=== PATIENT | female | born 1975 | race Caucasian/White ===

== ENCOUNTER → 2020-06-16 15:06 | Outpatient (CLI) | payer OTHER, SELFPAY ==
[2020-06-16 18:16] LABS: Vitamin D,25 Hydroxy 23.4 ng/mL
== END ==
PROVIDERS: PCP Family Medicine; Referring Provider Family Medicine; Visit Provider Family Medicine
DX: E55.9 Vitamin D deficiency, unspecified (principal)
CPT/HCPCS: 36415; 82306

== ENCOUNTER → 2020-12-28 09:49 | Outpatient (CLI) | payer OTHER, SELFPAY ==
[2015-06-21 07:14] VITALS: BMI 40.2
[2020-12-28 12:53] LABS: Vitamin D,25 Hydroxy 32.3 ng/mL
== END ==
PROVIDERS: PCP Family Medicine; Referring Provider Family Medicine; Visit Provider Family Medicine
DX: E55.9 Vitamin D deficiency, unspecified (principal)
CPT/HCPCS: 36415; 82306

== ENCOUNTER → 2021-03-03 11:22 | Outpatient (CLI) | payer OTHER, SELFPAY ==
[2015-06-21 07:14] VITALS: BMI 40.2
[2021-03-03 11:27] LABS: Lyme Ab Screen Interpretation REF LAB
[2021-03-05 11:55] LABS: Lyme Scn Total Ab w/Rflx <0.91 ISR (0.00-0.90)
== END ==
PROVIDERS: PCP Family Medicine; Referring Provider Family Medicine; Visit Provider Family Medicine
DX: A69.20 Lyme disease, unspecified (principal)
CPT/HCPCS: 36415; 86618

== ENCOUNTER 2021-12-05 15:08 | Outpatient (CLI) | payer OTHER, SELFPAY ==
[2021-12-05 17:32] LABS: Absolute Lymphocyte Count 1.83 X10^3/uL (0.83-4.51); Absolute Neutrophil Count 4.8 X10^3/uL (2.0-7.7); Basophil# 0.05 X10^3/uL; Basophil% 0.7 % (0-1); Eosinophil# 0.32 X10^3/uL; Eosinophils% 4.2 % (0-5); Hematocrit 40.2 % (37-47); Hemoglobin 13.7 g/dL (12.0-15.0); Lymphocyte # 1.83 X10^3/ul (0.83-4.51); Mean Corp Hgb Conc 34.1 g/dL (32-36); Mean Corpuscular Hgb 30.7 pg (27.0-32.0); Mean Corpuscular Volume 90.1 fL (81-99); Mean Platelet Vol. 10.4 fl (6.2-12.0); Monocyte# 0.59 X10^3/uL; Monocyte% 7.7 % (0-10); NRBC Flagged by Analyzer 0 % (0-5); Neutrophil # 4.82 X10^3/uL (2.7-7.7); Neutrophil % 63.1 % (47-70); Platelet Count 301 K/mm3 (150-450); RBC Distribution Width CV 12.9 % (11.6-14.6); RBC Distribution Width SD 42.8 fl (35.1-43.9); Red Blood Count 4.46 M/mm3 (4.2-5.4); White Blood Count 7.6 K/mm3 (4.4-11.0)
[2021-12-05 17:51] LABS: Erythrocyte Sedimentation Rate 18 mm/hr (0-30)
[2021-12-05 18:00] LABS: Vitamin D,25 Hydroxy 29.1 ng/mL
[2021-12-05 18:04] LABS: Anion Gap 7 (5-15); BUN 9 mg/dL (7-18); Chloride 104 mmol/L (98-107); EST Glomerular Filtration Rate 72 mL/min (>60); Est Glom Filt Rate - Afr Amer 87 mL/min (>60); Glucose 90 mg/dL (74-106); Potassium 3.8 mmol/L (3.5-5.1); Sodium Level 139 mmol/L (136-145); Thyroid Stim Hormone (TSH) 0.94 uIU/mL (0.358-3.74)
== END 2021-12-05 23:59 | disposition home or self-care (01) ==
LOC: MFPLAB 15:10
PROVIDERS: PCP Family Medicine; Visit Provider Family Medicine
DX: R63.5 Abnormal weight gain (principal); E55.9 Vitamin D deficiency, unspecified; R19.7 Diarrhea, unspecified
CPT/HCPCS: 36415; 80048; 82306; 84443; 85025; 85652

== ENCOUNTER → 2024-05-02 | Outpatient (CLI) | payer MEDICAID, SELFPAY ==
[2024-05-02 16:17] LABS: Hepatitis B Surface Antibody Non-Reactive; Rubella IgG Reactive (Nonreactive)
[2024-05-04 10:07] LABS: Mumps Antibody,IgG 25.5 AU/mL (Immune >10.9); Rubeola IgG Ab > 300.0 AU/mL (Immune >16.4); V-Zoster IgG (Immunity) 2271 index (Immune >165)
== END | disposition home or self-care (01) ==
PROVIDERS: PCP Family Medicine; Referring Provider Registered Nurse; Visit Provider Registered Nurse
DX: Z00.00 Encounter for general adult medical examination without abnormal findings (principal)
CPT/HCPCS: 36415; 86706; 86735; 86762; 86765; 86787

== ENCOUNTER 2025-01-13 11:36 | Emergency (ER) | payer MEDICAID, SELFPAY ==
[2025-01-13 11:38] VITALS: BP 142/72; PULSE 110; RESP 18; TEMP 36.7; O2SAT 95; BMI 40.4
--- NOTE | 2025-01-13 11:54 | EKG12_ITS ---
Test Reason : PALPITATION Blood Pressure : */* mmHG Vent. Rate : 96 BPM Atrial Rate : 96 BPM P-R Int : 152 ms QRS Dur : 80 ms QT Int : 358 ms P-R-T Axes : 41 37 41 degrees QTcB Int : 452 ms Normal sinus rhythm Normal ECG Confirmed by Phil Prado ([id number]), editorial intern YELENA HUITRON ([id number]) on 01/19/2025 11:25:05 AM Referred By: Confirmed By: Phil Prado
--- NOTE | 2025-01-13 11:55 | EDS_ITS ---
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 She states she had her arm bent but then when she straightened it out it did get better. She states my anxiety got the best of me so I wanted to make sure I was not having a heart attack. She denies having chest comfort or dyspnea. She states her heart started racing but she feels like that was her anxiety and started after that hand tingling, that is not there anymore. She states the tingling went away and then came back, it is there mildly right now. Her blood pressure was 166 when her instructor checked at causing her concern. PFSH PFSH Medical History no medical history Home Medications ?Medication ?Instructions ?Recorded ?Last Taken ?Type vits,calcium no.78-iron 1 tab PO DAILY 06/20/15 22:00 History fumarate-folic acid 29 mg-1 mg tablet (Prenatabs FA) ibuprofen 600 mg tablet 600 mg PO Q6H PRN PRN Pain # #60 06/23/15 Unknown Rx methylprednisolone 4 mg tablets in See Rx Instructions PO PER PKG DIR 03/11/24 Unknown Rx a dose pack (Medrol (Owen)) #21 tabs fluconazole 150 mg tablet 150 mg PO Q3D 2 doses #2 tab s 04/18/24 Unknown Rx Allergy/AdvReac Type Severity Reaction Status Date / Time No Known Allergies Allergy Verified 01/13/25 11:38 Surgical History no surgical history Social History Smoking Status: Never smoker ROS ROS ED Constitutional Constitutional ED: Denies chills or fever(s) Eyes Eyes: Denies change in vision or diplopia ENT ENT ED: Denies rhinorrhea or sore throat Cardiovascular Cardiovascular: Denies chest pain or palpitations Respiratory/Chest Respiratory/Chest: Denies cough or dyspnea Gastrointestinal Gastrointestinal: Denies abdominal pain, diarrhea, nausea or vomiting Genitourinary Genitourinary ED: Denies dysuria or hematuria Musculoskeletal Musculoskeletal: Denies back pain or neck pain Integumentary Denies abscess or rash Neurologic Neurologic: Reports paresthesias LUE; Denies headache(s) or weakness Psychiatric Psychiatric: Denies suicidal thoughts EXAM Physical Exam Const Vital Signs: 01/13/25 11:38 01/13/25 11:42 01/13/25 11:54 Temperature 98.0 F Temperature Source Oral Pulse Rate 110 H Respiratory Rate 18 Respiratory Effort Normal Blood Pressure 142/72 H Blood Pressure Mean 95 Pulse Ox 95 Oxygen Delivery Method Room Air Room Air Positive well nourished and well developed General Appearance ED: well developed and NAD HEENT Reports moist mucous membranes normocephalic and atraumatic Eyes PERRL and EOMs intact bilaterally Neck full ROM and supple Resp normal respiratory effort and clear to auscultation bilaterally Cardio regular rate, regular rhythm and no murmurs GI non-tender and non-distended Auscultation: normoactive bowel sounds Palpation: soft Back/Spine no CVA tenderness General Back: other FROM Extremity normal to inspection General Extremety ED: Negative for edema, pulses abnormal or tenderness General Extremity: Negative for edema or pulses abnormal Neuro oriented x3, CN's II-XII intact bilaterally and no sensory deficits noted Sensorium / Orientation: awake and alert Motor Exam: strength 5/5 throughout Skin no rashes or lesions noted and no wounds Heart Score History: Slightly/Non-Suspicious ECG: Normal Age: >45 - <65 years Risk Factors: No Risk Factors Troponin: </= Normal Limit Score: 1 MDM MDM MDM Narrative Medical decision making narrative: Patient EKG is normal. Given that and her blood pressure being 127/73 right now, I think this is very unlikely to be acute cardiac ischemia. Therefore while testing her for that, also giving her some Mylanta to see if that makes a tingling better, this as esophageal etiologies can also cause the symptoms. I reexamination, her labs are normal troponin is less than 6 with a normal EKG and a low risk history, I do not think she needs to have another repeat troponin since she has been having the tingling for the most part of the last 6 or 7 hours. Chest x-ray 2 views of interpretation are normal, radiology was in agreement. Patient is reassured, discharged home since her blood pressures in the 120s here on exam, this suggested her blood pressure is really been fluctuating from normal to high so I think she should follow-up with primary care before being put on an antihypertensive. Lab Data Attestation: I reviewed the patient's lab results. Labs: Laboratory Results - last 24 hr 01/13/25 11:50 WBC 8.6 RBC 4.39 Hgb 13.4 Hct 38.7 MCV 88.2 MCH 30.5 MCHC 34.6 RDW Std Deviation 42.0 RDW Coeff of Venancio 13.0 Plt Count 268 MPV 10.2 Immature Gran % (Auto) 0.500 Neut % (Auto) 71.1 H Lymph % (Auto) 19.9 Bonner % (Auto) 7.0 Eos % (Auto) 0.9 Baso % (Auto) 0.6 Absolute Neuts (auto) 6.1 Absolute Lymphs (auto) 1.72 Nucleated RBC % 0 Sodium 138 Potassium 3.4 Chloride 103 Carbon Dioxide 23.7 Anion Gap 11 BUN 12 Creatinine 0.87 Estim Creat Clear Calc 101.10 Est GFR (MDRD) Non-Af 82 BUN/Creatinine Ratio 13.6 Glucose 135 H Calcium 9.4 Troponin T High Sens < 6 Radiography Diagnostic Testing: Clinical Impression(s) from Imaging Studies Chest X-Ray 01/13/25 12:25 IMPRESSION: NO ACUTE FINDINGS. Reading Location: [place] [id number] Rhythm Strip Rhythm Strip: Sinus Tach Rate: 105 Ectopy: None EKG Initial EKG: Attestation: I personally reviewed and interpreted this EKG as follows: Interpretation: Sinus Rhythm and No Acute Injury Pattern Comments: Nml axis & intervals; nml EKG Prior EKG tracings: not available for review Prior: No Prior Discharge Plan Triage Chief Complaint: Palpitations ED Provider: Avinash Corona Dx/Rx/DC Orders Clinical Impression: Paresthesia of left arm, Single episode of hypertension Instructions: ED Hypertension, To Be Confirmed, ED Paraesthesias Prescriptions: No Action methylprednisolone [Medrol (Owen)] 4 mg tablets,dose pack See Rx Instructions PO PER PKG DIR Qty: 21 0RF Rx Instructions: PO PER PKG DIR fluconazole 150 mg tablet 150 mg PO Q3D 0 Days Qty: 2 0RF Rx Instructions: may repeat second dose 72 hrs after first dose if symptoms persist [id number] [Prenatabs FA] 1 TABLET tablet 1 tab PO DAILY ibuprofen 600 MG tablet 600 mg PO Q6H PRN PRN (Reason: Pain) Qty: 60 1RF Primary Care Provider: Marlin Sam Referrals: Karla Bhatti MD [Med Staff - Cottage Supervisor] - (Call for an appointment) Print Language: Sinhala Disposition Disposition: Home, Self Care
[2025-01-13 12:15] LABS: Absolute Lymphocyte Count 1.72 X10^3/uL (0.83-4.51); Absolute Neutrophil Count 6.1 X10^3/uL (2.0-7.7); Basophil# 0.05 X10^3/uL; Basophil% 0.6 % (0-1); Eosinophil# 0.08 X10^3/uL; Eosinophils% 0.9 % (0-5); Hematocrit 38.7 % (37-47); Hemoglobin 13.4 g/dL (12.0-15.0); Lymphocyte # 1.72 X10^3/ul (0.83-4.51); Lymphocyte % 19.9 % (19-41); Mean Corp Hgb Conc 34.6 g/dL (32-36); Mean Corpuscular Hgb 30.5 pg (27.0-32.0); Mean Corpuscular Volume 88.2 fL (81-99); Mean Platelet Vol. 10.2 fl (6.2-12.0); NRBC Flagged by Analyzer 0 % (0-5); Neutrophil # 6.14 X10^3/uL (2.7-7.7); Neutrophil % 71.1 % (47-70); Platelet Count 268 K/mm3 (150-450); Red Blood Count 4.39 M/mm3 (4.2-5.4); White Blood Count 8.6 K/mm3 (4.4-11.0)
[2025-01-13] MEDS: Mag Hydrox/Al Hydrox/Simeth 30 ML UDC PO (12:17)
--- NOTE | 2025-01-13 12:25 | RAD_ITS ---
PROCEDURE: CHEST PA AND LATERAL 01/13/2025 REASON FOR EXAM: CHEST PAIN TECHNIQUE: Frontal and lateral views of the chest. COMPARISON: None FINDINGS: Hardware: EKG electrodes are seen. Heart: The heart size is normal. Mediastinum: The mediastinal contour is unremarkable. Lungs: The lungs are clear. Bones: Degenerative changes are identified within the thoracic spine. RAD/Chest PA and Lateral IMPRESSION: NO ACUTE FINDINGS. Reading Location: [facility]
[2025-01-13 12:37] LABS: Anion Gap 11 (5-15); BUN 12 mg/dL (4-19); BUN/Creat Ratio 13.6 RATIO (10-20); Calcium,Total 9.4 mg/dL (7.6-11.0); Carbon Dioxide 23.7 mmol/L (21.0-32.0); Chloride 103 mmol/L (98-108); Creatinine, Serum 0.87 mg/dL (0.70-1.20); EST Glomerular Filtration Rate 82 (>60); Glucose 135 mg/dL (70-99); Potassium 3.4 mmol/L (3.3-5.1); Sodium Level 138 mmol/L (133-145); Troponin T High Sensitivity < 6 ng/L (<=14)
[2025-01-13 13:39] VITALS: BP 133/85; PULSE 90; RESP 16; TEMP 36.7; O2SAT 98
== END 2025-01-13 13:40 | disposition home or self-care (01) ==
PROVIDERS: Emergency Provider Emergency Medicine; PCP Family Medicine; Visit Provider Emergency Medicine
DX: R20.2 Paresthesia of skin (principal); I10 Essential (primary) hypertension
CPT/HCPCS: 71046; 80048; 84484; 85025; 93005; 99284; A4216

== ENCOUNTER → 2025-03-27 | Outpatient (CLI) | payer MEDICAID, SELFPAY ==
--- OUTSIDE RECORDS SUMMARY | 2025-03-27 16:01 | XMS RPT_ITS | CCD ---
Author Organization [facility] Care Team Providers Care Key Operator Name Role Phone Karla Bhatti Primary Care Provider MARLIN SAM Attending Unavailable MARLIN SAM Primary Care Unavailable MARLIN SAM Admitting Unavailable KatherinlliffKarla Primary Care Provider [phone] Karla Bhatti Liset Primary Care Provider [phone] Marlin Sam PA-C Primary Care Provider AYLA KARLA LISET Primary Care Unavailable Reed Lopez Attending Unavailable SANDY, JANNA Referring Unavailable JOLLIFF, KARLA LISET Primary Care Unavailable JOLLIFF, KARLA LISET Primary Care Unavailable KARLA GRANT Attending Unavailable SANDY, JANNA Referring Unavailable JOLLIFF, KARLA LISET Primary Care Unavailable SANDY, JANNA Attending Unavailable JOLLIFF, KARLA LISET Primary Care Unavailable SANDY, JANNA Referring Unavailable JOLLIFF, KARLA LISET Primary Care Unavailable SANDY, JANNA Attending Unavailable SANDY, JANNA Referring Unavailable JOLLIFF, KARLA LISET Primary Care Unavailable SANDY, JANNA Referring Unavailable Dr. Avinash Corona MD Emergency Provider Marlin Sam PA-C Primary Care Provider Avinash Corona Attending Unavailable Marlin Galicia Primary Care Unavailable Jolliff, Karla S Primary Care Unavailable Jolliff, Karla S Referring Unavailable Artie Ngo Attending Unavailable Jolliff, Karla S Primary Care Unavailable Jolliff, Karla S Referring Unavailable Osvaldo Butt Attending Unavailable Carlotta Gaytan Attending Unavailable Kolb MAKAYLA Carlotta Referring Unavailable Jolliff, Karla S Primary Care Unavailable Medications Current Medications Medication Drug Class(es) Dates Sig (Normalized) Sig (Original) yhgqni-lznjkjv-wnicteh 5,000 mcg-100 mg-5 mg cap (6 sources) eudhvj-taeqpcj-a ilicon 5,000 mcg-100 mg-5 mg cap Active xlaxmj-ufzejiy-e ilicon 5,000 mcg-100 mg-5 mg cap 12 hr buPROPion hydrochloride 150 mg extended release oral tablet (2 sources) Aminoketone Start: 01-23-2024 End: 04-22-2024 take 39-39.9 tablets by mouth twice daily buPROPion SR (WELLBUTRIN SR) 150 mg 12 hr tablet Indications: Depression, unspecified depression type , Generalized anxiety disorder , Craving for particular food , Class 2 severe obesity with serious comorbidity and body mass index (BMI) of 39.0 to 39.9 in adult, unspecified obesity type (HCC) Take 1 tablet by mouth two times a day. 180 tablet 01/23/2024 04/22/2024 Active Cetirizine (14 sources) Histamine-1 Receptor Antagonist CETIRIZINE HCL (ZYRTEC ORAL) Take by mouth. Active CETIRIZINE HCL ( ZYRTEC ORAL) Take by mouth. 0 Active Comment on above: Take by mouth. ERGOCALCIFEROL, VITAMIN D2, (VITAMIN D ORAL) (14 sources) take 1 tablet by aidan th once daily ERGOCALCIFEROL, VITAMIN D2, (VITAMIN D ORAL) Take 1 tablet by mouth once daily. Active take 1 tablet by mouth once radha y ERGOCALCIFEROL, VITAMIN D2, (VITAMIN D ORAL) Take 1 tablet by mouth once daily. 0 Active Comment on above: Take 1 tablet by aidan th once daily. fluconazole 150 mg oral tablet (1 source) Azole Antifungal Start: 024 Fluconazole 150 mg tablet Active 150 mg PO Every 3 Days 2 0 April 18, 2024 12:00am may repeat second dose 72 hrs after first dose if symptoms persist fluticasone propionate 0.05 mg/actuat metered dose nasal spray (14 sources) Corticosteroid Start: 015 take 1 spray(s) nasal route once daily fluticasone (FLONASE ALLERGY RELIEF) 50 mcg/actuation nasal spray Use 1 [place] in each nostril once daily. 1 Bottle 1 08/03/2015 Active Comment on above: Use 1 [place] in each nostril once daily. ibuprofen 600 mg oral tablet (2 sources) Nonsteroidal Anti-inflammatory Drug Start: 015 take 1 tablet by mouth every six hours as needed for pain Ibuprofen 600 MG tablet Active 600 mg PO EVERY 6 HOURS NEEDED as needed for Pain 60 June 23, 2015 10:03am levonorgestrel 0.078095 mg/hr intrauterine system (6 sources) Progestin, Progestin-containing Intrauterine Device Start: 024 End: 032 levonorgestrel (MIRENA) 21 mcg/24 hours (8 yrs) 52 mg IUD Indications: Encounter for IUD insertion 1 Each by INTRAUTERINE route as directed. 1 Each 11/16/2023 11/14/2031 Active Comment on above: 1 Each by INTRAUTERI NE route as directed. lysine 1000 mg oral tablet (6 sources) lysine 1,000 mg tab Active Magnesium (6 sources) Magnesium 250 mg tab Active Magnesium 250 mg tab norethindrone acetate 5 mg oral tablet (4 sources) Start: 12-10-2023 norethindrone (AYGESTIN) 5 mg tablet Indications: abnormal uterine bleeding due to hormonal imbalance Take 1 tablet TID until bleeding stops, the BID x 3 days, the daily x 3 days. 35 tablet 12/10/2023 Active Vit,Nzws30-Cwze-Doapi (Prenatabs Fa) 1 TABLET tablet (2 sources) Start: 06-21-2015 take 1 tablet by mouth once daily Vit,Quyr64-Imar-Ipbfe (Prenatabs Fa) 1 TABLET tablet Active 1 TABLET PO DAILY June 21, 2015 9:13am Start: 06-21-2015 take 1 tablet by aidan th once daily Vit,Izrp54-Fjqz-Wjuei (Prenatab s Fa) 1 TABLET tablet Active 1 {tbl} PO DAILY June 21, 2015 1:00am red yeast rice 600 mg oral capsule (6 sources) Red Yeast Rice Extract 600 mg cap Active sulfamethoxazole 800 mg / trimethoprim 160 mg oral tablet (1 source) Dihydrofolate Reductase Inhibitor Antibacterial, Sulfonamide Antimicrobial Start: 4 End: 4 take 1 tablet by mouth twice daily sulfamethoxazol e-trimethoprim (BACTRIM DS) 800-160 mg per tablet Take 1 tablet by mouth two times a day for 7 days. 14 tablet 0 12/12/2023 12/19/2023 Active Completed/Discontinued Medications Medication Drug Class(es) Dates Sig (Normalized) Sig (Original) amoxicillin 875 mg / clavulanate 125 mg oral tablet (1 source) Penicillin-class Antibacterial Start: 04-18-2024 End: 04-28-2024 Amoxicillin-Pot Clavulanate 875-125 mg tablet Discontinued 1 {tbl} PO Q12H 08 06April 18, 2024 12:00am April 27, 2024 12:00am April 28, 2024 12:04am Ascorbic Acid (3 sources) Vitamin C End: 10-30-2022 take 1 tablet by mouth once daily ASCORBIC ACID (VITAMIN C ORAL) Take 1 tablet by mouth once daily. 0 10/30/2022 Discontinued take 1 tablet by mouth once radha y ASCORBIC ACID (VITAMIN C ORAL) Take 1 tablet by mouth once daily. 0 Active Comment on above: Take 1 tablet by aidan th once daily. benzonatate 200 mg oral capsule (1 source) Non-narcotic Antitussive Start: 03-11-20 End: 01-14-20 take 1 capsule by mouth three times daily as needed for cough Benzonatate 200 mg capsule Discontinued 200 mg PO THREE TIMES A DAY as needed for cough March 11, 2024 12:00am January 13, 2025 11:38am DOCOSAHEXANOIC ACID/EPA (FISH OIL ORAL) (6 sources) End: 11-05-19 take 1 capsule by mouth once daily DOCOSAHEXANOIC ACID/EPA (FISH OIL ORAL) Take 1 capsule by mouth once daily. 0 11/05/2023 Discontinued take 1 capsule by mouth once justin ly DOCOSAHEXANOIC ACID/EPA (FISH OIL ORAL) Take 1 capsule by mouth once daily. 0 Active Comment on above: Take 1 capsule by mo [facility] once daily. DULoxetine 60 mg delayed release oral capsule (6 sources) Serotonin and Norepinephrine Reuptake Inhibitor Start: 06-03-20 End: 11-05-19 take 1 capsule by mouth once daily DULoxetine (CYMBALTA) 60 mg capsule Take 60 mg by mouth once daily. 0 06/03/2020 11/05/2023 Discontinued Comment on above: Take 60 mg by mouth once daily. Ethinyl Estradiol / Ferrous fumarate / Norethindrone (7 sources) Estrogen Start: 10-17-19 End: 11-05-19, 1 mg-20 mcg (21)/75 mg (7) per tablet TAKE 1 TABLET BY MOUTH EVERY DAY TAKING ACTIVE PILLS ONLY START NEW PACK EVERY 3WKS 112 tablet 0 10/17/2022 11/05/2023 Discontinued Start: 10-17-2022, 1 mg-20 mcg (21)/75 mg (7) per tablet TAKE 1 TABLET BY MOUTH EVERY DAY TAKING ACTIVE PILLS ONLY START NEW PACK EVERY 3WKS 112 tablet 0 10/17/2022 Active Start: 08-02-2022, 1 mg-20 mcg (21)/75 mg (7) per tablet TAKE 1 TABLET BY MOUTH EVERY DAY TAKING ACTIVE PILLS ONLY START NEW PACK EVERY 3WKS 112 tablet 0 08/02/2022 Active Start: 07-28-2021 End: 08-02-2022 Norethin Horacio-Eth Estrad-FE ( ,) 1 mg-20 mcg (21)/75 mg (7) per tablet Take 1 tablet by mouth once daily. Take active pills only. Start a new pack every 3 weeks. 112 tablet 5 07/28/2021 08/02/2022 Discontinued Comment on above: Take 1 tablet by aidan th once daily. Take active pills only. Start a new pack every 3 weeks. TAKE 1 TABLET BY AIDAN TH EVERY DAY TAKING ACTIVE PILLS ONLY START NEW PACK EVERY 3WKS glyBURIDE 5 mg oral tablet (2 sources) Sulfonylurea Start: 2014 End: 2014 take 5 mg by mouth once daily Glyburide Discontinued 5 MG PO DAILY June 21, 2015 9:13am June 23, 2015 10:03am methylPREDNISolone 4 mg oral tablet (2 sources) Corticosteroid Start: 2023 End: 2023 take 1 tablet by mouth once Methylprednisolone (Medrol (Owen)) 4 mg tablets,dose pack Discontinued 4 mg PO per package directions 07 02April 18, 2024 12:00am April 23, 2024 12:00am April 24, 2024 12:04am valACYclovir 1000 mg oral tablet (6 sources) Herpesvirus Nucleoside Analog DNA Polymerase Inhibitor, Herpes Simplex Virus Nucleoside Analog DNA Polymerase Inhibitor, Herpes Zoster Virus Nucleoside Analog DNA Polymerase Inhibitor Start: 2018 End: 2023 valACYclovir (VALTREX) 1 gram tab TAKE 2 TABLETS BY MOUTH AT THE FIRST SIGN OF AN OUTBREAK THEN TAKE 2 TABLETS 12 HOURS LATER 3 04/12/2019 11/05/2023 Discontinued Comment on above: TAKE 2 TABLETS BY MO UTH AT THE FIRST SIGN OF AN OUTBREAK THEN TAKE 2 TABLETS 12 HOURS LATER Problems Active Problems Problem Classification Problem Date Documented Da te Episodic/Chronic Anxiety disorders (5 sources) Generalized anxiety disorder; Translations: [Generalized anxiety disorder] Onset: 01-23-2024 01-23-2024 Chronic Diabetes or abnormal glucose tolerance complicating ; childbirth; or the puerperium (8 sources) Gestational diabetes mellitus; Translations: [Gestational diabetes mellitus in , unspecified control] Onset: 04-15-2015 Resolved: 07-27-2015 08-15-2021 Episodic Disorders of lipid metabolism (4 sources) Raised low density lipoprotein cholesterol; Translations: [Pure hypercholesterolemi a, unspecified] Onset: 01-23-2024 01-23-2024 Chronic Essential hypertension (1 source) Elevated blood pressure; Translations: [Essential (primary) hypertension] 01-13-2025 Chronic Malaise and fatigue (1 source) Malaise and fatigue; Translations: [Other malaise] 01-23-2024 Episodic Menopausal disorders (2 sources) Menopause finding; Translations: [Menopausal and female climacteric states] Onset: 11-05-2023 11-05-2023 Chronic Mood disorders (4 sources) Depressive disorder; Translations: [Depression, unspecified depression type] Onset: 01-23-2024 01-23-2024 Chronic Mood disorders (1 source) Mood disorders; Translations: [Depression, unspecified depression type] Onset: 01-23-2024 Nutritional deficiencies (3 sources) Vitamin D deficiency; Translations: [Vitamin D deficiency, unspecified] Onset: 01-23-2024 01-23-2024 Chronic Other ear and sense organ disorders (1 source) Infection of ear lobe; Translations: [Other infective otitis externa, right ear] 12-12-2023 Episodic Other nervous system disorders (1 source) Paresthesia of left upper limb; Translations: [Paresthesia of skin] 01-13-2025 Episodic Other nervous system disorders (1 source) Paresthesia of skin; Translations: [Paresthesia of skin] Onset: 01-20-2025 Episodic Other nutritional; endocrine; and metabolic disorders (4 sources) Severe obesity; Translations: [Morbid (severe) obesity due to excess calories] Onset: 01-23-2024 01-23-2024 Chronic Other nutritional; endocrine; and metabolic disorders (1 source) Morbid (severe) obesity due to excess calories; Translations: [Class 2 severe obesity with serious comorbidity and body mass index (BMI) of 39.0 to 39.9 in adult, unspecified obesity type (HCC)] Onset: 01-23-2024 Chronic Other nutritional; endocrine; and metabolic disorders (1 source) Body mass index (BMI) 39.0-39.9, adult; Translations: [Class 2 severe obesity with serious comorbidity and body mass index (BMI) of 39.0 to 39.9 in adult, unspecified obesity type (HCC)] Onset: 01-23-2024 Chronic Other nutritional; endocrine; and metabolic disorders (2 sources) Craving for particular food; Translations: [Other symptoms and signs concerning food and fluid intake] 01-23-2024 Episodic Thyroid disorders (1 source) Nontoxic goiter, unspecified; Translations: [Nontoxic goiter, unspecified] Onset: 04-10-2023 Chronic Unclassified (1 source) Call for an appointment Past or Other Problems Problem Classification Problem Date Documented Date Episodic/Chronic Contraceptive and procreative management (4 sources) Intrauterine contraceptive device in situ; Translations: [Presence of (intrauterine) contraceptive device] Onset: 09-16-2012 Resolved: 09-23-2013 09-23-2013 Episodic Other complications of ; puerperium affecting management of mother (4 sources) Advanced maternal age ; Translations: [Advanced maternal age (AMA) in ] Onset: 12-15-2014 Resolved: 07-27-2015 07-27-2015 Episodic Other female genital disorders (4 sources) Postcoital bleeding; Translations: [Postcoital bleeding] Onset: 09-16-2012 Resolved: 09-23-2013 09-23-2013 Chronic Other and delivery including normal (4 sources) Normal ; Translations: [Encounter for supervision of other normal , unspecified trimester] Onset: 01-18-2015 Resolved: 12-08-2015 12-27-2021 Episodic Other screening for suspected conditions (not mental disorders or infectious disease) (20 sources) Patient encounter status; Translations: [Encounter for screening mammogram for malignant neoplasm of breast] Onset: 01-18-2015 Episodic Other upper respiratory infections (2 sources) Acute sinusitis; Translations: [Acute sinusitis, unspecified] Onset: 04-18-2024 04-18-2024 Episodic Viral infection (14 sources) Herpes simplex; Translations: [Herpesviral infection, unspecified] Onset: 12-15-2014 12-15-2014 Episodic Results Test Name Value Interpretation Reference Range Facil ity 12 Lead EKGon 01-13-2025 12 Lead EKG [facility] [address] [place] [address] 12 Lead EKG 01/13/25 1144 MR#: [id number] Acct: [id number] Name: YAZMIN WELCH Rep #: [id number] : 1975 49 From: Phil Prado MD Attending Dr: Status: DEP ER Ordering Dr: Avinash Corona MD Date: 01/13/25 Location: ED Sex: F C Admitted: Test Reason : PALPITATION Blood Pressure : */* mmHG Vent. Rate : 96 BPM Atrial Rate : 96 BPM P-R Int : 152 ms QRS Dur : 80 ms QT Int : 358 ms P-R-T Axes : 41 37 41 degrees QTcB Int : 452 ms Normal sinus rhythm Normal ECG Confirmed by Phil Prado ([id number]), assistant production editor YELENA HUITRON ([id number]) on 01/19/2025 11:25:05 AM Referred By: Confirmed By: Phil Prado 01/19/25 1125 Date Phil Prado MD CC: BENEDICTO Sam; Dr. Avinash Corona MD Signed Normal [facility] Absolute lymphocyte countOrd ered By: Avinash Corona on 01-13-2025 Lymphocytes Auto (Unsp spec) [#/Vol] 1.72 10*3/uL 0.83-4.51 [facility] Absolute neutrophil countOrd ered By: Avinash Corona on 01-13-2025 Neutrophils (Bld) [#/Vol] 6.1 10*3/uL 2.0-7.7 [facility] Anion gap in Serum or Plasma Ordered By: Avinash Corona on 01-13-2025 Anion gap [Moles/Vol] 11 mmol/L 01-01 [facility] Automated lymphocyte count a s percentage of total leukocytesOrdered By: Avinash Corona on 01-13-2025 Lymphocytes/100 WBC Auto (Unsp spec) 19.9 % [facility] BUN/creatinine ratioOrdered By: Avinash Corona on 01-13-2025 Urea nitrogen/Creatinine [Mass ratio] 13.6 mg/mg 06-08 [facility] Basic Metabolic Profile (BMP )on 01-13-2025 BUN/CRE 13.6 RATIO Normal 06-08 [facility] Comment on above: Performed By: #### L 501.4021, L100.0100, L500.2500 #### [facility] [address] [place], [address] Calcium [Mass/Vol] 9.4 mg/dL Normal 7.6-11.0 [facility] Comment on above: Performed By: #### L 501.4021, L100.0100, L500.2500 #### [facility] [address] [place], [address] Chloride [Moles/Vol] 103 mmol/L Normal 98-108 [facility] Comment on above: Performed By: #### L 501.4021, L100.0100, L500.2500 #### [facility] [address] [place], [address] CO2 [Moles/Vol] 23.7 mmol/L Normal 21.0-32.0 [facility] Comment on above: Performed By: #### L 501.4021, L100.0100, L500.2500 #### [facility] [address] [place], [address] Creatinine [Mass/Vol] 0.87 mg/dL Normal 0.70-1.20 [facility] Comment on above: Performed By: #### L 501.4021, L100.0100, L500.2500 #### [facility] [address] [place], [address] ECRCL 101.10 ml/min Normal 50-250 [facility] Comment on above: Performed By: #### L 501.4021, L100.0100, L500.2500 #### [facility] [address] [place], [address] GAP 11 Normal 5-15 [facility] Comment on above: Performed By: #### L 501.4021, L100.0100, L500.2500 #### [facility] [address] [place], [address] GFR/1.73 sq M.predicted among non-blacks MDRD (S/P/Bld) [Vol rate/Area] 82 mL/min/{1.73_m2} Normal >60 [facility] Comment on above: Result Comment: mL/m in/1.73m2 CKD-EPI Creatinine Equation (2020) Performed By: #### L 501.4021, L100.0100, L500.2500 #### [facility] [address] [place], [address] Glucose [Mass/Vol] 135 mg/dL High 70-99 [facility] Comment on above: Performed By: #### L 501.4021, L100.0100, L500.2500 #### [facility] [address] [place], [address] Potassium [Moles/Vol] 3.4 mmol/L Normal 3.3-5.1 [facility] Comment on above: Performed By: #### L 501.4021, L100.0100, L500.2500 #### [facility] [address] [place], [address] Sodium [Moles/Vol] 138 mmol/L Normal 133-145 [facility] Comment on above: Performed By: #### L 501.4021, L100.0100, L500.2500 #### [facility] [address] [place], [address] Urea nitrogen [Mass/Vol] 12 mg/dL Normal 4-19 [facility] Comment on above: Performed By: #### L 501.4021, L100.0100, L500.2500 #### [facility] [address] [place], [address] Basophil percentageOrdered B y: Avinash Corona on 01-13-2025 Basophils/100 WBC (Bld) 0.6 % 0-1 [facility] CBC W/Diff, Automatedon 12-19 Absolute Lymph 1.72 X10 3/uL Normal 0.83-4.51 [facility] Comment on above: Performed By: #### L 501.4021, L100.0100, L500.2500 #### [facility] [address] [place], [address] Absolute Neut 6.1 X10 3/uL Normal 2.0-7.7 [facility] Comment on above: Performed By: #### L 501.4021, L100.0100, L500.2500 #### [facility] [address] [place], [address] Basophils/100 WBC (Bld) 0.6 % Normal 0-1 [facility] Comment on above: Performed By: #### L 501.4021, L100.0100, L500.2500 #### [facility] [address] [place], [address] Eosinophils/100 WBC (Bld) 0.9 % Normal 0-5 [facility] Comment on above: Performed By: #### L 501.4021, L100.0100, L500.2500 #### [facility] [address] [place], [address] Erythrocyte distribution width (RBC) [Ratio] 13.0 % Normal 11.6-14.6 [facility] Comment on above: Performed By: #### L 501.4021, L100.0100, L500.2500 #### [facility] [address] [place], [address] Hematocrit (Bld) [Volume fraction] 38.7 % Normal 37-47 [facility] Comment on above: Performed By: #### L 501.4021, L100.0100, L500.2500 #### [facility] [address] [place], [address] Hemoglobin (Bld) [Mass/Vol] 13.4 g/dL Normal 12.0-15.0 [facility] Comment on above: Performed By: #### L 501.4021, L100.0100, L500.2500 #### [facility] [address] [place], [address] IG% 0.500 Normal 0.0-0.9 [facility] Comment on above: Result Comment: IG% - Immature Granulocytes (promyelocytes, myelocytes and metamyelocytes) > 1% indicates that a LEFT SHIFT is Present. Performed By: #### L 501.4021, L100.0100, L500.2500 #### [facility] [address] [place], [address] Lymphocytes/100 WBC (Bld) 19.9 % Normal 19-41 [facility] Comment on above: Performed By: #### L 501.4021, L100.0100, L500.2500 #### [facility] [address] [place], [address] MCH (RBC) [Entitic mass] 30.5 pg Normal 27.0-32.0 [facility] Comment on above: Performed By: #### L 501.4021, L100.0100, L500.2500 #### [facility] [address] [place], [address] MCHC (RBC) [Mass/Vol] 34.6 g/dL Normal 32-36 [facility] Comment on above: Performed By: #### L 501.4021, L100.0100, L500.2500 #### [facility] [address] [place], [address] MCV (RBC) [Entitic vol] 88.2 fL Normal 81-99 [facility] Comment on above: Performed By: #### L 501.4021, L100.0100, L500.2500 #### [facility] [address] [place], [address] Monocytes/100 WBC (Bld) 7.0 % Normal 0-10 [facility] Comment on above: Performed By: #### L 501.4021, L100.0100, L500.2500 #### [facility] [address] [place], [address] Neutrophils/100 WBC (Bld) 71.1 % High 47-70 [facility] Comment on above: Performed By: #### L 501.4021, L100.0100, L500.2500 #### [facility] [address] [place], [address] Nucleated RBC (Bld) [#/Vol] 0 10*3/uL Normal 0-5 [facility] Comment on above: Performed By: #### L 501.4021, L100.0100, L500.2500 #### [facility] [address] [place], [address] Platelet mean volume (Bld) [Entitic vol] 10.2 fL Normal 6.2-12.0 [facility] Comment on above: Performed By: #### L 501.4021, L100.0100, L500.2500 #### [facility] [address] [place], [address] Platelets (Bld) [#/Vol] 268 10*3/uL Normal 150-450 [facility] Comment on above: Performed By: #### L 501.4021, L100.0100, L500.2500 #### [facility] [address] [place], [address] RBC (Bld) [#/Vol] 4.39 10*6/uL Normal 4.2-5.4 [facility] Comment on above: Performed By: #### L 501.4021, L100.0100, L500.2500 #### [facility] [address] [place], [address] RDW SD 42.0 fl Normal 35.1-43.9 [facility] Comment on above: Performed By: #### L 501.4021, L100.0100, L500.2500 #### [facility] [address] [place], [address] WBC (Bld) [#/Vol] 8.6 10*3/uL Normal 4.4-11.0 [facility] Comment on above: Performed By: #### L 501.4021, L100.0100, L500.2500 #### [facility] [address] [place], [address] Carbon dioxide, total [Moles /volume] in Central venous bloodOrdered By: Avinash Corona on 01-13-2025 CO2 [Moles/Vol] 23.7 mmol/L 21.0-32.0 [facility] Chest PA and Lateralon 01-13 Chest PA and Lateral [facility] [address] [place] [address] Chest PA and Lateral MR#: [id number] Acct: [id number] Name: YURI,YAZMIN MARIE Rep #: [id number] : 1975 F 49 From: Abdullahi gordon MD PCP: Marlin Sam PA-C Status: REG ER Study: Chest PA and Lateral Date of Exam: 01/13/25 Exam# [id number] Ordering Dr: Avinash Corona MD PROCEDURE: CHEST PA AND LATERAL 01/13/2025 REASON FOR EXAM: CHEST PAIN TECHNIQUE: Frontal and lateral views of the chest. COMPARISON: None FINDINGS: Hardware: EKG electrodes are seen. Heart: The heart size is normal. Mediastinum: The mediastinal contour is unremarkable. Lungs: The lungs are clear. Bones: Degenerative changes are identified within the thoracic spine. RAD/Chest PA and Lateral IMPRESSION: NO ACUTE FINDINGS. Reading Location: [place] [address] CC: BENEDICTO Sam; Dr. Avinash Corona MD Foreign Correspondent: Signed Normal [facility] Chloride assayOrdered By: Brooklyn Corona on 01-13-2025 Chloride [Moles/Vol] 103 mmol/L 98-108 [facility] Emergency Department Summary on 01-13-2025 Emergency Department Summary [facility] Medical Records Department [address] [place] [id number] Emergency Department Summary 01/13/25 MR#: [id number] Acct: [id number] Name: YAZMIN WELCH Rep #: [id number] : 1975 49 From: Avinash Corona MD PCP: Marlin Sam PA-C Status:REG ER Location: ED HPI History of Present Illness Chief Complaint: Palpitations Informant: patient Narrative Narrative: 49-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 She states she had her arm bent but then when she straightened it out it did get better. She states my anxiety got the best of me so I wanted to make sure I was not having a heart attack. She denies having chest comfort or dyspnea. She states her heart started racing but she feels like that was her anxiety and started after that hand tingling, that is not there anymore. She states the tingling went away and then came back, it is there mildly right now. Her blood pressure was 166 when her instructor checked at causing her concern. [facility] Medical History no medical history Home Medications ???Medication ???Instructions ???Recorded ???Last Taken ???Type vits,calcium no.78-iron 1 tab PO DAILY 06/21/15 06/20/15 2 2:00 History fumarate-folic acid 29 mg-1 mg tablet (Prenatabs FA) ibuprofen 600 mg tablet 600 mg PO Q6H PRN PRN Pain ##60 Unknown Rx methylprednisolone 4 mg tablets in See Rx Instructions PO PER PKG D IR 03/11/24 Unknown Rx a dose pack (Medrol (Owen)) #21 tabs fluconazole 150 mg tablet 150 mg PO Q3D 2 doses #2 tabs 03/22 Unknown Rx Allergy/AdvReac Type Severity Reaction Status Date / Time No Known Allergies Allergy Verified 01/13/25 11:38 Surgical History no surgical history Social History Smoking Status: Never smoker ROS ROS ED Constitutional Constitutional ED: Denies chills or fever(s) Eyes Eyes: Denies change in vision or diplopia ENT ENT ED: Denies rhinorrhea or sore throat Cardiovascular Cardiovascular: Denies chest pain or palpitations Respiratory/Chest Respiratory/Chest: Denies cough or dyspnea Gastrointestinal Gastrointestinal: Denies abdominal pain, diarrhea, nausea or vomiting Genitourinary Genitourinary ED: Denies dysuria or hematuria Musculoskeletal Musculoskeletal: Denies back pain or neck pain Integumentary Denies abscess or rash Neurologic Neurologic: Reports paresthesias LUE; Denies headache(s) or weakness Psychiatric Psychiatric: Denies suicidal thoughts EXAM Physical Exam Const Vital Signs: 01/13/25 11:38 01/13/25 11:42 01/13/25 11:54 Temperature 98.0 F Temperature Source Oral Pulse Rate 110 H Respiratory Rate 18 Respiratory Effort Normal Blood Pressure 142/72 H Blood Pressure Mean 95 Pulse Ox 95 Oxygen Delivery Method Room Air Room Air Positive well nourished and well developed General Appearance ED: well developed and NAD HEENT Reports moist mucous membranes normocephalic and atraumatic Eyes PERRL and EOMs intact bilaterally Neck full ROM and supple Resp normal respiratory effort and clear to auscultation bilaterally Cardio regular rate, regular rhythm and no murmurs GI non-tender and non-distended Auscultation: normoactive bowel sounds Palpation: soft Back/Spine no CVA tenderness General Back: other FROM Extremity normal to inspection General Extremety ED: Negative for edema, pulses abnormal or tenderness General Extremity: Negative for edema or pulses abnormal Neuro oriented x3, CN's II-XII intact bilaterally and no sensory deficits noted Sensorium / Orientation: awake and alert Motor Exam: strength 5/5 throughout Skin no rashes or lesions noted and no wounds Heart Score History: Slightly/Non-Suspic ious ECG: Normal Age: >45 - <65 years Risk Factors: No Risk Factors Troponin: Score: 1 MDM MDM MDM Narrative Medical decision making narrative: Patient EKG is normal. Given that and her blood pressure being 127/73 right now, I think this is very unlikely to be acute cardiac ischemia. Therefore while testing her for that, also giving her some Mylanta to see if that makes a tingling better, this as esophageal etiologies can also cause the symptoms. I reexamination, her labs are normal troponin is less than 6 with a normal EKG and a low risk history, I do not think she needs to have another repeat troponin since she has been having the tingling for the most part of the last 6 or 7 hours. Chest x (more content not included)... Normal [facility] Eosinophil percentageOrdered By: Avinash Corona on 01-13-2025 Eosinophils/100 WBC (Bld) 0.9 % 0-5 [facility] Erythrocyte distribution wid th ratioOrdered By: Avinash Corona on 01-13-2025 Erythrocyte distribution width (RBC) [Ratio] 13.0 % 11.6-14.6 [facility] Erythrocyte distribution wid th standard deviationOrdered By: Avinash Corona on 01-13-2025 Erythrocyte distribution width (RBC) [Ratio] 42.0 fl 35.1-43.9 [facility] Glomerular filtration rate ( GFR) estimation/1.73 sq m using serum, plasma, or whole bOrdered By: Avinash Corona on 01-13-2025 GFR/1.73 sq M.predicted among non-blacks MDRD (S/P/Bld) [Vol rate/Area] 82 mL/min/{1.73_m2} >60 [facility] Comment on above: mL/min/1.73m2 CKD-EP I Creatinine Equation (2020) Hematocrit Auto (Bld) [Volum e fraction]Ordered By: Avinash Corona on 01-13-2025 Hematocrit (Bld) [Volume fraction] 38.7 % 37-47 [facility] Hemoglobin measurementOrdere d By: [facility] on 01-13-2025 Hemoglobin (Bld) [Mass/Vol] 13.4 g/dL 12.0-15.0 [facility] Immature granulocytes/100 WB C Auto (Bld)Ordered By: Avinash Cj on 01-13-2025 Immature granulocytes/100 WBC (Bld) 0.500 % 0.0-0.9 [facility] Comment on above: IG% - Immature Granu locytes (promyelocytes, myelocytes and metamyelocytes) > 1% indicates that a LEFT SHIFT is Present. L499.0042on 01-13-2025 Trop T High Sen Normal <=14 [facility] Comment on above: Result Comment: Canc elled via OM: Order cancelled - Patient discharged Performed By: #### L 499.0042 #### [facility] [address] [place], [address] L499.0043on 01-13-2025 Trop T High Sen Normal <=14 [facility] Comment on above: Result Comment: Canc elled via OM: Order cancelled - Patient discharged Performed By: #### L 499.0043 ####[facility] [address] [place], [address] L501.4021on 01-13-2025 Trop T High Sen < 6 Normal <=14 [facility] Comment on above: Performed By: #### L 501.4021, L100.0100, L500.2500 #### [facility] [address] [place], [address] MCV (mean corpuscular volume ) determinationOrdered By: Avinash Corona on 01-13-2025 MCV (RBC) [Entitic vol] 88.2 fL 81-99 [facility] Mean corpuscular hemoglobin (MCH) determinationOrdered By: Avinash Corona on 01-13-2025 MCH (RBC) [Entitic mass] 30.5 pg 27.0-32.0 [facility] Mean corpuscular hemoglobin concentration (MCHC) determinationOrdered By: Avinash Corona on 01-13-2025 MCHC (RBC) [Mass/Vol] 34.6 g/dL 32-36 [facility] Mean platelet volume determi nationOrdered By: Avinash Corona on 01-13-2025 Platelet mean volume (Bld) [Entitic vol] 10.2 fL 6.2-12.0 [facility] Monocyte percentageOrdered B y: Avinash Corona on 01-13-2025 Monocytes/100 WBC (Bld) 7.0 % 0-10 [facility] Neutrophil percentageOrdered By: Avinash Corona on 01-13-2025 Neutrophils/100 WBC (Bld) 71.1 % High 47-70 [facility] Nucleated red blood cell per centageOrdered By: Avinash Corona on 01-13-2025 Nucleated RBC/100 WBC (Bld) [Ratio] 0 % 0-5 [facility] Platelet countOrdered By: Brooklyn Corona on 01-13-2025 Platelets (Bld) [#/Vol] 268 10*3/uL 150-450 [facility] Potassium measurement (mass/ volume)Ordered By: Avinash Corona on 01-13-2025 Potassium (Unsp spec) [Mass/Vol] 3.4 mmol/L 3.3-5.1 [facility] RBC Auto (Bld) [#/Vol]Ordere d By: Avinash Corona on 01-13-2025 RBC (Bld) [#/Vol] 4.39 10*6/uL 4.2-5.4 [facility] Serum creatinine measurement (mass/volume)Ordered By: Avinash Corona on 01-13-2025 Creatinine [Mass/Vol] 0.87 mg/dL 0.70-1.20 [facility] Serum glucose measurement (m ass/volume)Ordered By: Avinash Corona on 01-13-2025 Glucose [Mass/Vol] 135 mg/dL High 70-99 [facility] Serum or plasma calcium radha urement (mass/volume)Ordered By: Avinash Corona on 01-13-2025 Calcium [Mass/Vol] 9.4 mg/dL 7.6-11.0 [facility] Serum or plasma urea nitroge n measurement (mass/volume)Ordered By: Avinash Corona on 01-13-2025 Urea nitrogen [Mass/Vol] 12 mg/dL 4-19 [facility] Sodium levelOrdered By: Ishaan Corona on 01-13-2025 Sodium [Moles/Vol] 138 mmol/L 133-145 [facility] Troponin T.cardiac [Mass/vol ume] in Serum or Plasma by High sensitivity methodOrdered By: Avinash Corona on 01-13-2025 Troponin T.cardiac High sensitivity method [Mass/Vol] < 6 ng/L <14 [facility] White blood cell (WBC) count Ordered By: Avinash Corona on 01-13-2025 WBC (Bld) [#/Vol] 8.6 10*3/uL 4.4-11.0 [facility] Mumps Antibody,IgGon 024 MUMPS Ab, IgG 25.5 AU/mL Normal Immune >10.9 [facility] Comment on above: Order Comment: Order Date: 05/02/24 Order Info: 7962-4 - RUBEOG Order Info: 22216-2 - MUG titer needed for school Result Comment: Nega tive <9.0 Equivocal 9.0 - 10.9 Positive >10.9 A positive result generally indicates past exposure to Mumps virus or previous vaccination. Performed By: #### L 3400.1750, L3100.3300 #### [facility] [address] [place], [address] Rubeola IgG Abon 05-04-2024 RUBEOLA Ab, IgG > 300.0 Normal Immune >16.4 [facility] Comment on above: Order Comment: Order Date: 05/02/24 Order Info: [id number] - RUBEOG Order Info: [id number] - MUG titer needed for school Result Comment: Nega tive <13.5 Equivocal 13.5 - 16.4 Positive >16.4 Presence of antibodies to Rubeola is presumptive evidence of immunity except when acute infection is suspected. Performed at: - [address] [id number] It Service Delivery Manager: Danny Maciel PhD, Phone: [phone] Performed By: #### L 3400.1750, L3100.3300 #### [facility] [address] [place], [address] V-Zoster IgG (Immunity)on V ZOSTER IgG 2271 index Normal Immune >165 [facility] Comment on above: Order Comment: Order Date: 05/02/24Order Info: [id number] - RUBEOGOrder Info: [id number] - MUGtiter needed for school Result Comment: Nega tive <135 Equivocal 135 - 165 Positive >165 A positive result generally indicates exposure to the pathogen or administration of specific immunoglobulins, but it is not indication of active infection or stage of disease. Performed By: #### L 3400.0000, L509.4005, L3890.6200 ####[facility] [address] [place], [address] Hepatitis B Surface Antibody on 05-02-2024 HEP B Surf Ab Non-Reactive Normal [facility] Comment on above: Result Comment: Non Reactive: Inconsistent with immunity less than <10 mIU/mL Reactive: Consistent with immunity greater than or equal to 10 mIU/mL Performed By: #### L 3400.0000, L509.4005, L3890.6200 ####[facility] [address] [place], [address] Rubella IgGon 05-02-2024 Rubella IgG Reactive Normal Nonreactive [facility] Comment on above: Result Comment: Anti body Results Interpretation of Immune Status Non Reactive Presumed Non-Immune Equivocal Equivocal Reactive Presumed Immune Performed By: #### L 3400.0000, L509.4005, L3890.6200 ####[facility] [address] [place], [address] Urgent Care Visit Reporton 0 04-18-2024 Urgent Care Visit Report [facility] [address], [address] [place] [address] OFFICE VISIT Date of Service: 04/18/24 MR#: [id number] Acct: [id number] Name: YAZMIN WELCH Rep #: [id number] 1 : 1975 Provider: JOSEPH Bello Age/Sex: 48/F [place] [facility] [facility] [place] Status: Signed Intake Vital Signs 03/11/24 13:21 04/18/24 09:21 Height 5 ft 6 in Weight: 238 lb BMI 38.4 BP 124/80 H 124/72 H Blood Pressure Location Lt brachial Lt brachial Position Sitting Sitting Respiration 12 14 Pulse 111 H 115 H Pulse Source Monitor Monitor Temp 98 F 98.6 F Temp Source Temporal Temporal Pulse Oximetry (%) 96 97 Oxygen Delivery Method room air room air Intake Visit Reasons: CONGESTION, COUGH Allergies No Known Allergies Allergy (Verified 04/18/24 09:22) PFSH Social History Smoking Status: Former smoker HPI HPI Details: YAZMIN WELCH, is a 48 F who presents to the office today for complaint of ongoing cough for the past month. Patient states that she was seen and given a steroid a month ago which did help with the cough however never went completely away and particularly over the past 3 to 5 days she has had worsening symptoms including sinus pain and pressure. She denies fever, chills, sweats. No nausea, vomiting, diarrhea. No hemoptysis or difficulty breathing. No other associated symptoms or alleviating/aggrava ting factors. ROS Const Constitutional: No other (6 system ROS completed with pertinent findings in the HPI otherwise normal.) Exam Const General: cooperative and healthy appearing HENOK Head: normal to inspection Ears: hearing grossly normal bilaterally, TM's normal bilaterally and EAC's normal Nose: nasal discharge purulent Face and sinus: sinus tenderness frontal and maxillary Mouth: oral mucosae normal Throat: abnormal tonsil bilaterally erythema and hypertrophy 1+ and postnasal drainage Resp Effort Inspection: normal respiratory effort Auscultation: Bilateral: Clear to Auscultation Cardio Palpation: normal PMI Rate: regular rate Rhythm: regular rhythm Neuro General: patient alert and CN's II-XI intact bilaterally Psych Appearance: grossly normal Mental Status: mental status grossly normal Coding Level of Care Code Off vis,new,level 3 Diagnoses Acute sinusitis Assessment and Plan Assessment and Plan (1) Acute sinusitis: Status: Acute Medications: New amoxicillin-pot clavulanate 875-125 mg 1 TAB PO Q12H 20 tabs 0RF 10 days J - Acute sinusitis, unspecified methylprednisolone (Medrol (Owen)) 4 mg PO PER PKG DIR 21 tabs 0RF 6 days fluconazole may repeat second dose 72 hrs after first dose if symptoms persist 150 mg PO Q3D 2 tabs 0RF 2 doses Plan Augmentin, Medrol Dosepak and Diflucan as prescribed today as the patient states that she often gets a yeast infection with antibiotics. Encouraged to get plenty of rest, drink lots of clear liquids, and use Tylenol or Ibuprofen (unless contraindicated) for fever and comfort. Patient also educated on other symptomatic management techniques. To be seen in 7-10 days if no improvement; sooner if worsening of symptoms. Patient advised of potential red flags and when appropriate to report to the ED. Patient verbalized understanding and agreement with all the above. 04/18/24 0952 Date Osvaldo Colorado Signature: Date (if applicable) CC: Normal [facility] Urgent Care Visit Reporton 0 03-11-2024 Urgent Care Visit Report [facility] [address] [facility], [address] [place] [address] OFFICE VISIT Date of Service: 03/11/24 MR#: [id number] Acct: [id number] Name: YAZMIN WELCH Rep #: [id number] : 1975 Provider: JOSEPH Márquez Age/Sex: 48/F [place] [facility] [facility] [place] Status: Signed Intake Vital Signs 03/11/24 13:21 Height 5 ft 6 in Weight: 238 lb BMI 38.4 BP 124/80 H Blood Pressure Location Lt brachial Position Sitting Respiration 12 Pulse 111 H Pulse Source Monitor Temp 98 F Temp Source Temporal Pulse Oximetry (%) 96 Oxygen Delivery Method room air Intake Visit Reasons: SINUS COMPALAINT Allergies No Known Allergies Allergy (Verified 03/11/24 13:22) PFSH Social History Smoking Status: Former smoker HPI HPI Details: YAZMIN WELCH, is a 48 F who presents to the office today for initial evaluation in the [facility] for approximately 4-5 day history of persistent sweats, chills, cough, DIAZ, myalgias, fatigue, congestion/ runny nose. Patient notes no complaints of chest pain or shortness of breath or dyspnea on exertion. Several close contacts recently dx???d w/ similar URI complaints. No lagv-syv-yjeoicm taken to assist. Home COVID-19 test this morning was negative; declining POC screening here as result. Non-smoker. No other associated symptoms and no other alleviating/aggrava ting factors. ROS Const Constitutional: No other (As above) Exam Const General: cooperative, healthy appearing and no acute distress Orientation: alert, awake and oriented x3 HENMT Head: normal to inspection Ears: hearing grossly normal bilaterally, external ears normal, TM's normal bilaterally and EAC's normal Nose: external nose normal, nares normal, septum normal and clear nasal discharge Face and sinus: normal facial exam, sinuses nontender and face symmetric Mouth: oral mucosae normal, lip normal, tongue normal and oropharynx normal Throat: posterior oropharynx normal, tonsils normal, uvula midline and no postnasal drainage Eyes General: appearance normal, both eyes and all related structures Neck Neck: normal visual inspection, full ROM, no lymphadenopathy, no meningeal signs and supple Neck mass: No Thyroid: thyroid normal Lymphatic: no lymphadenopathy noted Chest Chest palpation inspection: normal inspection of the chest Resp Effort Inspection: normal respiratory effort, able to speak in complete sentences and cough Quality of cough: wet (nonproductive in office today) Auscultation: Bilateral: Clear to Auscultation Cardio Palpation: normal PMI Rate: tachycardic Rhythm: regular rhythm Heart Sounds: S1 normal, S2 normal, no gallops, no murmurs and no rubs Pulses: radial pulses present Skin General: no rashes or lesions noted Neuro General: patient alert, patient awake and patient oriented x3 Cognition: normal cognition Speech: speech normal Psych Appearance: grossly normal Mental Status: mental status grossly normal Mood: congruent mood Affect: normal affect Speech and Movement: speech and movement normal Attitude: cooperative Diagnoses Contact with or exposure to other viral diseases Z20.828 URI (upper respiratory infection) J06.9 Assessment and Plan Assessment and Plan (1) Contact with or exposure to other viral diseases: Status: Acute (2) URI (upper respiratory infection): Status: Acute Plan: - See home COVID-19 test from this morning (negative) Medrol and Benzonatate as prescribed today. Supportive measures as instructed today. Follow-up with PCP in 5 to 7 days should symptoms not improve, ED sooner should symptoms worsen or any other concerns develop. Pt states acknowledging understanding all the above Coding Level of Care Code Off vis,new,level 3 Assessment and Plan Assessment and Plan Medications: New methylprednisolone (Medrol (Owen)) PO PER PKG DIR 21 tabs 0RF benzonatate 200 mg PO TID PRN 14 caps 0RF cough 03/11/24 1357 Date Artie [place] Signature: Date (if applicable) CC: Normal [facility] CNOVon 01-23-2024 CNOV Office Visit (OBGYWM) ---- YAZMIN WELCH ([id number]) 1975 F Date Time Provider Department 01/23/24 1:00 PM KARLA GRANT During your visit today, we recorded the following information about you: Blood pressure Weight Height 122/84 109.3 kg 1.683 m Karla Grant APRN.CLINICAL NURSING INSTRUCTOR 01/23/2024 2:11 PM Addendum Weight Management: You have taken the initiative to become a healthier version of yourself and to decrease the risks that come with the diagnosis of obesity or being overweight. We are happy to help you along this journey but know this is a lifetime commitment to yourself. Losing just 3-10 % of your body weight can decrease your risks of many other serious diseases like diabetes, heart disease, osteoarthritis, hypertension, cancer and so many others. During this time you will have triumphs, setbacks and plateaus- your body will fight against you but we are here to give you the tools and the resources to continue to reach your goals. We recommend during this time that you track your weight daily or at least five times per week as well as tracking your nutrition. You may track your activity but do not use hitting your fitness goals as a reward system as this can derail your success. We recommend weekly physical activity of 150-200 min/week-although physical exercise, this will be especially important for weight maintenance. Exercise can have many other benefits including improving insulin resistance, improving balance, bone health, improving mental health and cardiovascular health. Do not feel overwhelmed - we will discuss this more at your visits. Our time will be limited with each visit but we will try to touch on factors that are important to you and to your overall goals. We will try to set a goal at the end of each visit and then decide on what we want to accomplish with your upcoming visits. On your After Visit Summary (AVS), we will provide you with information that may be useful during this journey so please remember to read the information given. Check your AVS a few days after your appointment because we may have added more information specifically for you. Remember that if you are placed on medications, they are tools that can help you succeed but you must put in the work. Your nutrition will be the main factor. There are medications that work well for some and not for others- so it may take time to find the right combination for your body's needs. Please remember that factors such as other health co-morbidities one might have, as well as insurance coverage, will play a factor in determining which medications you can take. Most of the newer medications that are all the craze ,injectables, may not be covered or will only be covered if you fail months of oral medications or have Type 2 diabetes so please be patient with the process. It would be beneficial for you to determine what your insurance covers as far as Anti-Obesity Medications (AOMs), Nutritional Counseling, behavioral intervention and weight loss surgery. Please call your health insurance prior to your first appointment and write down coverage for each of those therapies. Most importantly, remember that ultimately our goal is to help you get to a healthier weight which will decrease your overall health risks. We will work together as a team and try to reach your personalized goals as well. Follow-up appointments Please arrive to follow-up visits a minimum of 15 minutes prior to your appointment. Follow-up weight management visits can be virtual. You will need to report a current blood pressure, heart rate (pulse) and weight at the beginning of each virtual appointment so you will need to have a reliable BP cuff, either wrist or upper arm. If you need to reschedule your appointment time or switch from an in-office visit to a virtual visit or vice versa, you need to call our office as we have designated appointment slots. This should not be done on [facility] as you will not be scheduled appropriately and will need to be rescheduled. We appreciate that you have entrusted us with your health and know that we are committed to this process with you. Sincerely, Pricilla Landa MD, JULIA, OSMAN AND Karla Grant CNP Advanced Education from the [employer] Obesity Obesity is a disease that affects nearly one-third of the adult [place] population (approximately 60 million). The number of overweight and obese Americans has continued to increase since 1960, a trend that is not slowing down. Today, 64.5 percent of adult Americans (about 127 million) are categorized as being overweight or obese. Each year, obesity causes at least 300,000 excess deaths in the [place] and healthcare costs of [place] adults with obesity amount to approximately $100 billion. (AOA) Obesity is a complex, multi-factorial chronic diseas (more content not included)... [facility] CNOVon 12-12-2023 CNOV Office Visit (UCWSTR) ---- YAZMIN WELCH ([id number]) 1975 F Date Time Provider Department 12/12/23 12:00 PM ANNE-MARIE MURPHY [facility] During your visit today, we recorded the following information about you: Temperature Pulse Respiration Blood pressure 98.4 degrees 96/minute 16/minute 126/66 Weight 111.5 kg Anne-Marie Murphy APRN.CLINICAL NURSING INSTRUCTOR 12/12/2023 2:34 PM Signed This note was created using Gainsightriter. Subjective Yazmin Welch is a 47 year old female. 47 year old female with no PMH presents for ear complaints. Acute onset 12/07/23 Right ear lobe Endorses Bubble like behind piercing. Warm compresses Endorses last night it popped +blood drainage and purulence Has been spraying saline spray Bactine spray Denies fever or chills. Of note, She underwent the piercing 2 to 3 months ago The history is provided by the patient. No site interpreter was used. Ear Problem There is pain in the right ear. This is a new problem. Episode onset: 5 days ago. The problem occurs constantly. The problem has been unchanged. There has been no fever. The pain is at a severity of 6/10. The pain is moderate. Pertinent negatives include no abdominal pain, coughing, diarrhea, ear discharge, headaches, hearing loss, neck pain, rash, rhinorrhea, sore throat or vomiting. Treatments tried: warm compresses/spray. The treatment provided no relief. There is no history of a chronic ear infection, hearing loss or a tympanostomy tube. 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 MEDICATIONS norethindrone (AYGESTIN) 5 mg tablet Take 1 tablet TID until bleeding stops, the BID x 3 days, the daily x 3 days. lysine 1,000 mg tab Magnesium 250 mg tab Red Yeast Rice Extract 600 mg cap xqmnaw-qhdgmfb-rzif con 5,000 mcg-100 mg-5 mg cap levonorgestrel (MIRENA) 21 mcg/24 hours (8 yrs) 52 mg IUD 1 Each by INTRAUTERINE route as directed. fluticasone (FLONASE ALLERGY RELIEF) 50 mcg/actuation nasal spray Use 1 [place] in each nostril once daily. CETIRIZINE HCL (ZYRTEC ORAL) Take by mouth. ERGOCALCIFEROL, VITAMIN D2, (VITAMIN D ORAL) Take 1 tablet by mouth once daily. sulfamethoxazole-tr imethoprim (BACTRIM DS) 800-160 mg per tablet Take 1 tablet by mouth two times a day for 7 days. FAMILY HISTORY Problem Relation Age of Onset Heart Maternal Grandmother FL AND BYPASS SURG. Diabetes Maternal Grandmother Hypertension Maternal Grandfather Breast Cancer Paternal Grandmother Diabetes Paternal Grandmother Alcohol/Drug Paternal Grandmother ALCOHOLISM Breast Cancer Paternal Aunt Breast Cancer Maternal Aunt Social History Tobacco Use Smoking status: Former Passive exposure: Never Smokeless tobacco: Never Tobacco comments: Socially smoked in the past Vaping Use Vaping Use: Never used Substance Use Topics Alcohol use: Yes Comment: occasionally; not while Drug use: No Review of Systems Constitutional: Negative for chills, diaphoresis, fatigue and fever. HENT: Positive for ear pain. Negative for ear discharge, hearing loss, rhinorrhea and sore throat. Respiratory: Negative for cough. Cardiovascular: Negative for chest pain, palpitations and leg swelling. Gastrointestinal: Negative for abdominal pain, diarrhea and vomiting. Genitourinary: Negative for pelvic pain. Musculoskeletal: Negative for arthralgias, back pain, gait problem and neck pain. Skin: Positive for wound. Negative for color change and rash. Allergic/Immunologi c: Negative for environmental allergies, food allergies and immunocompromised state. Neurological: Negative for dizziness, facial asymmetry and headaches. Hematological: Negative for adenopathy. Does not bruise/bleed easily. Psychiatric/Behavio ral: Negative for agitation and behavioral problems. Objective BP 126/66 Pulse 96 Temp 36.9 ?C (98.4 ?F) Resp 16 Wt 111.5 kg (245 lb 13 oz) LMP 11/14/2023 (Exact Date) SpO2 99% BMI 39.68 kg/m? Physical Exam Vitals and nursing note reviewed. Constitutional: General: She is not in acute distress. Appearance: Normal appearance. She is normal weight. She is not ill-appearing, toxic-appearing or diaphoretic. HENT: Head: Normocephalic and atraumatic. Right Ear: Ear canal normal. Left Ear: Ear canal and external ear normal. Ears: Comments: Right guevara of helix with piercing noted. +redness +erythema +TTP No abscess No streaking Nose: Nose normal. No congestion or rhinorrhea. Mouth/Throat: Mouth: Mucous membranes are moist. Pharynx: No oropharyngeal exudate or posterior oropharyngeal erythema. Eyes: General: Right eye: No discharge (more content not included)... [facility] CNPNon 12-03-2023 CNPN Telephone (Testlio) ---- YAZMIN WELCH ([id number]) 1975 F Date Time Provider Department 12/03/23 REED LOPEZ During your visit today, we recorded the following information about you: Thea Palomo 12/03/2023 8:39 AM Signed Patient called and stated she had a colonoscopy completed 11/22/2023 and is wanting to know if she is to come back in for a follow up? 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 You will need a repeat colonoscopy in 5 years. She does not need to follow-up with me. Marilu Alves MA 12/06/2023 11:27 AM Signed Left detailed message on identified voicemail as well as notified of FOBOt message being sent. Pt to call back with any questions. Recall letter prompted, HM updated. ROOSEVELT Newman Laurie, MA 12/06/2023 11:37 AM Signed Pt calling back. States she was told that there was a Flat polyp that needed to be removed. Advised that I would have Dr. Lopez review and call her back. Marilu Alves MA Lani Palomoanna 12/06/2023 1:56 PM Signed Patient scheduled with Dr. Mccollum 12/26/2023 Marilu Alves MA 12/10/2023 12:09 PM Signed Per pt mychart message inquiry. Good Morning! Is this something that has to be done immediately? I have graduation and school. Can I schedule in January? Please advise. It will be easier for a single mom to do it then; however, if you feel like it needs to be done, then I will. Thank you! Allergies As of Date: 12/03/2023 (No Known Allergies) Date Reviewed: 11/22/2023 Reviewed by: Saloni Light RN - Fully Assessed Reason for Visit: Patient Question [6247] Prescriptions as of 12/14/2023 - sulfamethoxazole-tr imethoprim (BACTRIM DS) 800-160 mg per tablet Take 1 tablet by mouth two times a day for 7 days. - norethindrone (AYGESTIN) 5 mg tablet Take 1 tablet TID until bleeding stops, the BID x 3 days, the daily x 3 days. - lysine 1,000 mg tab - Magnesium 250 mg tab - Red Yeast Rice Extract 600 mg cap - meqkln-rgesdel-fkcu con 5,000 mcg-100 mg-5 mg cap - levonorgestrel (MIRENA) 21 mcg/24 hours (8 yrs) 52 mg IUD 1 Each by INTRAUTERINE route as directed. - fluticasone (FLONASE ALLERGY RELIEF) 50 mcg/actuation nasal spray Use 1 [place] in each nostril once daily. - CETIRIZINE HCL (ZYRTEC ORAL) Take by mouth. - ERGOCALCIFEROL, VITAMIN D2, (VITAMIN D ORAL) Take 1 tablet by mouth once daily. Problem List As Of Date 12/03/2023 Noted Resolved IUD (intrauterine device) in place [Z97.5] 09/16/2012 09/23/2013 Post - coital bleeding 09/16/2012 09/23/2013 Advanced maternal age (AMA) in [IMO00*12/15/2014 07/27/2015 Herpes simplex [B00.9] 12/15/2014 Supervision of other normal [Z34.80] 01/18/2015 07/27/2015 Special screening for malignant neoplasms, colo*01/18/2015 Gestational diabetes [O24.419] 04/15/2015 07/27/2015 Encounter Status:Closed by MARILU ALVES on 12/06/23 [facility] [id number] 11-22-2023 [id number] HNO ID: [id number] Author: SALONI LIGHT RN Service: ? Author Type: Registered Nurse Type: [id number] Filed: 11/22/2023 12:28 Note Text: The patient received a copy of Colonoscopy discharge instructions that contain information for how to contact the physician who performed the procedure and when to seek medical care. [facility] Patient Name: Yazmin Welch Procedure Date: 11/22/2023 11:29 AM Date of : 1975 Admit Type: Outpatient Age: 47 Gender: Female Note Status: Finalized Procedure: Colonoscopy Indications: Screening for colorectal malignant neoplasm Providers: Reed Lopez MD Patient Profile: This is a 47 year old female. Refer to note in patient chart for documentation of history and physical. Last Colonoscopy: none. The patient's first colonoscopy is today. Referring Physician: Janna Delgado (Referring ), Karla Bhatti (Referring ) Medicines: Fentanyl 100 micrograms IV, Midazolam 7 mg IV, Diphenhydramine 50 mg IV Complications: No immediate complications. Estimated blood loss: Minimal. Requesting Provider: Procedure: Pre-Anesthesia Assessment: - Prior to the procedure, a History and Physical was performed, and patient medications and allergies were reviewed. The patient's tolerance of previous anesthesia was also reviewed. The risks and benefits of the procedure and the sedation options and risks were discussed with the patient. All questions were answered, and informed consent was obtained. Prior Anticoagulants: The patient has taken no anticoagulant or antiplatelet agents. ASA Grade Assessment: II - A patient with mild systemic disease. After reviewing the risks and benefits, the patient was deemed in satisfactory condition to undergo the procedure. After I obtained informed consent, the scope was passed under direct vision. Throughout the procedure, the patient's blood pressure, pulse, and oxygen saturations were monitored continuously. The Colonoscope was introduced through the anus and advanced to the cecum, identified by appendiceal orifice and ileocecal valve. The colonoscopy was performed without difficulty. The patient tolerated the procedure well. The quality of the bowel preparation was adequate to identify polyps greater than 5 mm in size. The ileocecal valve, appendiceal orifice, and rectum were photographed. Moderate Sedation: The administration of moderate sedation was initiated at 11:36 AM. Moderate (conscious) sedation was personally administered by the endoscopist. The following parameters were monitored: oxygen saturation, heart rate, blood pressure, respiratory rate, EKG, adequacy of pulmonary ventilation, and response to care. Total physician intraservice time was 22 minutes. Findings: The perianal and digital rectal examinations were normal. A small polyp was found in the cecum. The polyp was sessile. The polyp was removed with a jumbo cold forceps. Resection and retrieval were complete. A medium-sized polypoid lesion was found in the ascending colon. The lesion was sessile. No bleeding was present. Biopsies were taken with a cold forceps for histology. Area was tattooed with an injection of 1 mL of Spot (carbon black). A medium polyp was found in the rectum. The polyp was sessile. The polyp was removed with a hot snare. Resection and retrieval were complete. Non-bleeding internal hemorrhoids were found during retroflexion. The hemorrhoids were mild and small. The exam was otherwise without abnormality. Impression: - One small polyp in the cecum, removed with a jumbo cold forceps. Resected and retrieved. - Likely benign polypoid lesion in the ascending colon. Biopsied. Tattooed. - One medium polyp in the rectum, removed with a hot snare. Resected and retrieved. - Non-bleeding internal hemorrhoids. - The examination was otherwise normal. Recommendation: - Patient has a contact number available for emergencies. The signs and symptoms of potential delayed complications were discussed with the patient. Return to normal activities tomorrow. Written discharge instructions were provided to the patient. - Resume previous diet. - Continue present medications. - Await pathology results. - Repeat colonoscopy date to be determined after pending pathology results are reviewed for surveillance. - Refer to a colo-rectal surgeon at appointment to be scheduled. Procedure Code(s): --- Professional --- 69381, Colonoscopy, flexible; with removal of tumor(s), polyp(s), or other lesion(s) by snare technique 46824, 59, Colonoscopy, flexible; with biopsy, single or multiple 77864, Colonoscopy, flexible; with directed submucosal injection(s), any substance G0500, Moderate sedation services provided by the same physician or other qualified health ambulatory care performing a gastrointestinal endoscopic service that sedation supports, requiring the presence of an independent trained observer to assist in the monitoring of the patient's level of consciousness and physiological status; initial 15 minutes of intra-service time; patient age 5 years or older (additional time may be reported with 88866, as appropriate) Diagnosis Code(s (more content not included)... [facility] Colonoscopy Study observatio non 11-22-2023 [facility] HISTORY PHYSICALon HISTORY PHYSICAL HNO ID: [id number] Author: REED LOPEZ MD Service: General Surgery Author Type: Physician Type: H&P Filed: 11/22/2023 11:29 Note Text: Yazmin is a 47 year old who presents for an annual gynecologic exam without complaints. Menses: cycles every 28 days and 4 days of flow. Contraception: none HPV vaccine: No Last Pap: 05/14/2019 normal HPV: 05/12/2019 negative History of abnormal pap: No Last mammogram: 2022 normal Sexually active: Yes Hot flashes: Yes Night sweats: No OB History T3 L3 SAB0 IAB0 Ectopic0 Multiple0 Live Births3 Compensation Consultant History LMP: 11/05/2023 (Exact Date), Having periods Age at Menarche: Age at First : Age at Menopause: Compensation Consultant History Comments: Sexual Activity: Not Currently; No partner data on record Contraception: No contraception data on record PAST MEDICAL HISTORY PAST MEDICAL HISTORY Diagnosis Date Depression Generalized anxiety disorder Gestational diabetes 04/15/2015 Gestational diabetes 04/15/2015 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 Diabetes Maternal Grandmother Hypertension Maternal Grandfather Breast Cancer Paternal Grandmother Diabetes Paternal Grandmother Alcohol/Drug Paternal Grandmother ALCOHOLISM Breast Cancer Paternal Aunt Breast Cancer Maternal Aunt SOCIAL HISTORY SOCIAL HISTORY Social History Tobacco Use Smoking status: Former Passive exposure: Never Smokeless tobacco: Never Tobacco comments: Socially smoked in the past Vaping Use Vaping Use: Never used Substance Use Topics Alcohol use: Yes Comment: occasionally; not while Drug use: No REVIEW OF SYSTEMS Abdomen: No abdominal pain, nausea, vomiting, diarrhea, or constipation. No bloating, early satiety, indigestion, or increased flatulence. Bladder: No dysuria, gross hematuria, urinary frequency, urinary urgency, or incontinence. Breast: No breast lumps, nipple d/c, overlying skin changes, redness or skin retraction. Allergies and current medication updated:Yes EXAM: BP 120/72 Ht 5' 6 (1.68m) Wt 236 lb (107.0kg) LMP 11/05/2023 BMI 38.11 kg/(m2). GENERAL: pleasant, female in no apparent distress HEENT: Normocephalic, atraumatic, mucus membranes moist, and no lesions NECK: Supple, full range of motion, no adenopathy, and thyroid normal DERMATOLOGY: Normal, without lesions, non-icteric, and non-hirsute BREAST: soft, non-tender, symmetric, no dominant mass, normal nipple-areolar complex, no lymphadenopathy, and no nipple discharge CHEST: Normal inspiratory effort ABDOMEN: soft, non-tender, and no masses PELVIC: external genitalia normal, normal Bartholin's glands, urethra, [place]'s glands, no vulvar lesions, no cervical lesions, physiologic discharge present, normal appearing perineal body and perianal region BIMANUAL: uterus normal size, shape and consistency, no adnexal masses, and non-tender RECTOVAGINAL: deferred. NEURO: alert and oriented x3,exam grossly non-focal EXTREMITIES: normal ASSESSMENT/PLAN: 1. Encounter for gynecological examination (general) (routine) without abnormal findings - ICD9: V72.31, ICD10: Z01.419 (primary diagnosis) - Completed pelvic and breast exam - Encouraged monthly BSE - Follow up for annual exam in one year. - PAP TEST 2. Screening for cervical cancer - ICD9: V76.2, ICD10: Z12.4 - PAP TEST 3. Encounter for screening for human papillomavirus (HPV) - ICD9: V73.81, ICD10: Z11.51 - PAP TEST 4. Encounter for screening mammogram for breast cancer - ICD9: V76.12, ICD10: Z12.31 - DINORAH SCREENING 5. Special screening for malignant neoplasms, colon - ICD9: V76.51, ICD10: Z12.11 - COLONOSCOPY SCREENING 6. Perimenopausal symptoms - ICD9: 627.2, ICD10: N95.1 - TSH BLD - FSH BLD - ESTRADIOL-17B BLD 7. Screening for STDs (sexually transmitted diseases) - ICD9: V74.5, ICD10: Z11.3 - GONORRHEA/CHLAMYDIA NAAT 8. Encounter for insertion of intrauterine contraceptive device (IUD) - ICD9: V25.11, ICD10: Z30.430 - INSERT INTRAUTERINE DEVICE Will notify patient of test results. Janna Delgado APRN.CLINICAL NURSING INSTRUCTOR UPDATED HISTORY AND PHYSICAL EXAMINATION SERVICE DATE: 11/22/2023 SERVICE TIME: 11:29 AM PHYSICAL EXAM MUST BE COMPLETED ON ADMISSION The History and Physical (completed in the past 30 days) has been reviewed and the patient has been examined. The contents accurately reflect the patient's condition with the following additions or revisions since the HANDP was completed. Examination indicates no changes. This HANDP can be found in the attached. SIGNATURE: Reed Lopez III, MD PATIENT NAME: Yazmin Welch DATE: November 22, 2023 TIME: 11:29 AM [facility] SURGICAL PATHOLOGYon 024 CASE REPORT [facility] Comment on above: Order Comment: Speci men Type: TISSUE SPECIMENOrdering Facility: [facility] Address: [address] [place], [place] [id number] Result Comment: Surg [facility] Pathology Report Case: [id number] Authorizing Provider: Reed Lopez MD Collected: 11/22/2023 11:46 AM Ordering Location: Ambulatory Surgery Received: 11/22/2023 01:46 PM Pathologist: Ailyn Dunn MD Specimens: A) - CECUM POLYP B) - ASCENDING COLON BIOPSY C) - RECTAL POLYP Performed By: #### S ####[facility] LABCLIA [id number] [address] OF [facility] FINAL DIAGNOSIS [facility] Comment on above: Order Comment: Speci men Type: TISSUE SPECIMENOrdering Facility: [facility] Address: [address] [place] [address] Result Comment: A. C olon, cecum, polypectomy: - Tubular adenoma. B. Colon, ascending, flat polyp, biopsies: - Multiple fragments of tubular adenoma. C. Rectum, polypectomy: - Tubular adenoma. AEB/jo ann 11/23/2023 Performed By: #### S ####[facility] LABCLIA [id number] [address] OF [facility] FINAL PERFORMING LAB Normal [facility] Comment on above: Order Comment: Speci men Type: TISSUE SPECIMENOrdering Facility: [facility] Address: [address] [place] [address] Result Comment: Diag nostic interpretation performed at [facility], [address] [place] [address] CLIA# [id number] School Year Nanny: Rakan Vazquez M.D. Performed By: #### S ####[facility] LABCLIA [id number] [address] OF [facility] A. CECUM POLYP Normal [facility] Comment on above: Order Comment: Speci men Type: TISSUE SPECIMENOrdering Facility: [facility] Address: [address] [place] [address] Result Comment: Rece ived in formalin are multiple pieces of blackmon, soft tissue aggregating to 1.5 x 0.3 x 0.1 cm. Totally submitted in one cassette. B. ASCENDING COLON BIOPSY Received in formalin are multiple pieces of blackmon, soft tissue aggregating to 0.6 x 0.3 x 0.1 cm. Totally submitted in one cassette. C. RECTAL POLYP Received in formalin is one segment of blackmon-brown polypoid tissue measuring 0.5 x 0.3 x 0.3 cm. No stalk is present. The line of resection is noted. The specimen is bisected and totally submitted in one cassette. Gross examination performed at [facility], [address] [place] [id number] [facility] November 22, 2023 10:33 PM Performed By: #### S ####[facility] LABCLIA [id number] [address] [id number] [id number] [facility] CNOVon 11-16-2023 CNOV Office Visit (OBGYWM) ---- YAZMIN WELCH ([id number]) 1975 F Date Time Provider Department 11/16/23 8:45 AM JANNA DELGADO OBGYWM During your visit today, we recorded the following information about you: Blood pressure Weight Last Period 122/64 107.5 kg 11/07/23 Janna Delgado APRN.CLINICAL NURSING INSTRUCTOR 11/16/2023 9:35 AM Signed International Account Manager offered: Patient declines. Yazmin presents today for IUD insertion for contraception, menstrual dysfunction. Patient's last menstrual period was 11/07/2023 (exact date). GC/chlamydia: Not done: no risk factors and/or patient declines screening test: n/a Side effects including irregular bleeding were discussed with the patient. The patient understands that it should be removed in 8 years or sooner if the patient desires a . IUD source: office provided IUD lot #: [id number] Exp date: 09/19/[address] [facility]: [id number] UNIVERSAL PROTOCOL / SAFETY CHECKLIST Procedure to be Performed: Mirena insertion Sign In: A Moment of CARE was completed. Personnel directly involved with the procedure wore the appropriate PPE (Personal Protective Equipment). Patient/Surrogate Stated/Verified: PATIENT VERIFIED(optional for EMERGENT procedures): Patient name, Date of , Relevant allergies, and The intended procedure Time Out Communication: Intended patient and procedure match the source documents. Consent documented and matches the intended procedure. Sign Out: SIGN OUT (optional for EMERGENT procedures): No specimen collected. All instruments, equipment, possible retained foreign bodies accounted for. Post-procedure follow-up management communicated and Plan of Care Visit completed when applicable. The cervix was prepped with betadine. The uterus sounded to 10 cm and the uterus is Anteverted.. Using sterile technique, the Mirena IUD was inserted without difficulty and the string was cut to 2cm from the external os of the cervix. Patient tolerated procedure well. PLAN: Patient was advised to observe for signs and symptoms of infection including but not limited to fever, malodorous vaginal discharge and/or pain. The patient was told to check the string monthly for accurate placement. Bleeding expectations were reviewed. Follow up for next annual exam or sooner as needed. Janna Delgado APRN.Marlin Nash LPN 11/16/2023 8:33 AM Signed POST IUD INSTRUCTIONS You may have irregular bleeding during the first 3 months of use. You may have mild-severe cramping for the next 48 hours. You may use over the counter medication (Motrin, Tylenol) as needed. Your IUD must be removed or replaced based on the following table: IUD Type Removed or replaced within: Tyesha 3 years Kyleena 5 years Mirena 8 years Liletta 8 years Paragard 10 years Call the office for signs/symptoms of infection such as severe cramping, fever, or unusual bleeding. Check for string placement as instructed by your doctor. If you have any additional questions, please contact the office. Referring Provider: JANNA DELGADO [[id number]] Allergies As of Date: 11/16/2023 (No Known Allergies) Date Reviewed: 11/16/2023 Reviewed by: Marlin Cherry LPN - Fully Assessed Reason for Visit: Insertion Of IUD [291] Insertion Of IUD [291] Primary Visit Diagnosis:Encounter for IUD insertion [Z30.430] Order(s):[] levonorgestrel 21 mcg/24 hours (8 yrs) 52 mg 1 Each intrauterine device (MIRENA)Disp: Rfl: levonorgestrel (MIRENA) 21 mcg/24 hours (8 yrs) 52 mg IUD1 Each by INTRAUTERINE route as directed.Disp: 1 EachRfl: 0 Prescriptions as of 11/16/2023 - lysine 1,000 mg tab - Magnesium 250 mg tab - Red Yeast Rice Extract 600 mg cap - xsiugw-qyponbj-fcnc con 5,000 mcg-100 mg-5 mg cap - levonorgestrel (MIRENA) 21 mcg/24 hours (8 yrs) 52 mg IUD 1 Each by INTRAUTERINE route as directed. - fluticasone (FLONASE ALLERGY RELIEF) 50 mcg/actuation nasal spray Use 1 [place] in each nostril once daily. - CETIRIZINE HCL (ZYRTEC ORAL) Take by mouth. - ERGOCALCIFEROL, VITAMIN D2, (VITAMIN D ORAL) Take 1 tablet by mouth once daily. Problem List As Of Date 11/16/2023 Noted Resolved IUD (intrauterine device) in place [Z97.5] 09/16/2012 09/23/2013 Post - coital bleeding 09/16/2012 09/23/2013 Advanced maternal age (AMA) in [IMO00*12/15/2014 07/27/2015 Herpes simplex [B00.9] 12/15/2014 Supervision of other normal [Z34.80] 01/18/2015 07/27/2015 Sterilization [Z30.2] 01/18/2015 07/27/2015 Gestational diabetes [O24.419] 04/15/2015 07/27/2015 Other instructions from your clinician: POST IUD INSTRUCTIONS You may have irregular bleeding during the first 3 months of use. You may have mild-severe cramping for the next 48 hours. You may use over the counter medication (Motrin, Tylenol) as needed. Your IUD must be removed or replaced based on the following table: IUD Type Re (more content not included)... Normal [facility] CNCOon 11-09-2023 CNCO HNO ID: [id number] Author: COORDINATOR, MAMMOGRAPHY, ? Service: ? Author Type: Physician Type: Letter Filed: 11/09/2023 17:24 Note Text: November 12, 2023 PID: [id number] Yazmin Welch [address] [place] [address] Dear Ms. Welch, We are pleased to inform you that the results of your recent breast imaging exam on 11/09/2023 are normal. Early detection of cancer is very important. We also understand recommendations regarding breast cancer screening are controversial. Please discuss with your primary care provider which strategy is best for you and whether a mammogram is right for you. Your imaging studies and report will be kept on file at [facility] as part of your permanent medical record and are available for your continuing care. Thank you for allowing us to help in meeting your health care needs. Sincerely, Dr. Dorsey Interpreting Radiologist [facility] (Normal over 40) Normal [facility] SCREENINGon 11-09-2023 [facility] SCREENING * * *Final Report* * * DATE OF EXAM: Nov 09 2023 9:00AM WRW [id number] - [facility] SCREENING / PROCEDURE REASON: Encounter for screening mammogram for breast cancer * * * * Physician Interpretation * * * * RESULT: #[id number] - [facility] SCREENING BILATERAL DIGITAL SCREENING MAMMOGRAM WITH CAD: 11/09/2023 HISTORY: /Screening Mammogram - patient reports NO breast symptoms /priors available for comparison Encounter For Screening Mammogram For Breast Cancer. RESULT: TECHNIQUE: The study was acquired using full field digital technology and interpreted from soft copy. Current study was also evaluated with a Computer Aided Detection (CAD). Comparison is made to exams dated: 10/30/2022 mammogram, 09/16/2020 mammogram - [facility], and 05/07/2019 mammogram - [facility]. There are scattered areas of fibroglandular density. No significant masses, calcifications, or other findings are seen in either breast. There has been no significant interval change. IMPRESSION: NEGATIVE There is no mammographic evidence of malignancy. A 1 year screening mammogram is recommended. Jeff alves/penrad:11/09/2023 17:24:57 Mechanical Handyman(s): RT Schuyler(Gabby)(M), [facility] letter sent: Normal over 40 Mammogram BI-RADS: 1 Negative Multiple national specialty organizations have released breast cancer screening guidelines for women at average risk for developing breast cancer - guidelines that are based on both evidence and opinion, yet differ on when to start and how often to screen for breast cancer. With representation from Breast Imaging, Internal Medicine, Women's Health, Family Medicine, and Medical/Surgical Oncology, the [facility] has carefully reviewed the data and reached the following consensus: 1) All women should engage in shared decision-making with their providers to decide when to start and how often to screen; 2) All women should have the opportunity to start screening mammography at age 40; 3) For women ages 45-55, we recommend annual screening mammograms; 4) For women ages 55 and over, we support both the transition from an annual to a biennial interval if this aligns more with patient's values and preferences, or continuation with annual screening; 5) All women should discuss with their providers when to stop screening mammograms. Foreign Correspondent: Catherine Transcribe Date/Time: Nov 09 2023 8:27A Dictated by: JEFF DORSEY MD This examination was interpreted and the report reviewed and electronically signed by: JEFF DORSEY MD on Nov 09 2023 5:24PM EST [id number] Normal [facility] MG Breast Screeningon 2023 [facility] C. trachomatis+N. gonorrhoea e DNA KAROLINA+probe Ql (Unsp spec)on 11-05-2023 C. trachomatis rRNA KAROLINA+probe Ql (Unsp spec) Negative Normal Negative for Chlamydia trachomatis by amplificaton [facility] Comment on above: Order Comment: Speci men Type: SWABOrdering Facility: [facility] Address: [address] [place] [address] Performed By: #### 3 6902-5 ####[facility] LABCLIA [id number] [address] [place] N. gonorrhoeae rRNA KAROLINA+probe Ql (Unsp spec) Negative Normal Negative for Neisseria gonorrhoeae by amplification [facility] Comment on above: Order Comment: Speci men Type: SWABOrdering Facility: [facility] Address: [address] [place] [address] Performed By: #### 3 6902-5 ####[facility] LABCLIA [id number] [place] [address] [place] CNOVon 11-05-2023 CNOV Office Visit (OBGYWM) ---- YAZMIN WELCH ([id number]) 1975 F Date Time Provider Department 11/05/23 9:30 AM JANNA DELGADO OBGYWSanjiv During your visit today, we recorded the following information about you: Blood pressure Weight Height Last Period 120/72 107 kg 1.676 m 11/05/23 Janna Delgado APRN.CLINICAL NURSING INSTRUCTOR 11/05/2023 10:21 AM Signed rozina Janna Delgado APRN.CNP 11/05/2023 10:21 AM Signed aYzmin is a 47 year old who presents for an annual gynecologic exam without complaints. Menses: cycles every 28 days and 4 days of flow. Contraception: none HPV vaccine: No Last Pap: 05/14/2019 normal HPV: 05/12/2019 negative History of abnormal pap: No Last mammogram: 2022 normal Sexually active: Yes Hot flashes: Yes Night sweats: No OB History T3 L3 SAB0 IAB0 Ectopic0 Multiple0 Live Births3 Compensation Consultant History LMP: 11/05/2023 (Exact Date), Having periods Age at Menarche: Age at First : Age at Menopause: Compensation Consultant History Comments: Sexual Activity: Not Currently; No partner data on record Contraception: No contraception data on record PAST MEDICAL HISTORY Diagnosis Date Depression Generalized anxiety disorder Gestational diabetes 04/15/2015 Gestational diabetes 04/15/2015 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 Diabetes Maternal Grandmother Hypertension Maternal Grandfather Breast Cancer Paternal Grandmother Diabetes Paternal Grandmother Alcohol/Drug Paternal Grandmother ALCOHOLISM Breast Cancer Paternal Aunt Breast Cancer Maternal Aunt SOCIAL HISTORY Social History Tobacco Use Smoking status: Former Passive exposure: Never Smokeless tobacco: Never Tobacco comments: Socially smoked in the past Vaping Use Vaping Use: Never used Substance Use Topics Alcohol use: Yes Comment: occasionally; not while Drug use: No REVIEW OF SYSTEMS Abdomen: No abdominal pain, nausea, vomiting, diarrhea, or constipation. No bloating, early satiety, indigestion, or increased flatulence. Bladder: No dysuria, gross hematuria, urinary frequency, urinary urgency, or incontinence. Breast: No breast lumps, nipple d/c, overlying skin changes, redness or skin retraction. Allergies and current medication updated:Yes EXAM: BP 120/72 Ht 5' 6 (1.68m) Wt 236 lb (107.0kg) LMP 11/05/2023 BMI 38.11 kg/(m2). GENERAL: pleasant, female in no apparent distress HEENT: Normocephalic, atraumatic, mucus membranes moist, and no lesions NECK: Supple, full range of motion, no adenopathy, and thyroid normal DERMATOLOGY: Normal, without lesions, non-icteric, and non-hirsute BREAST: soft, non-tender, symmetric, no dominant mass, normal nipple-areolar complex, no lymphadenopathy, and no nipple discharge CHEST: Normal inspiratory effort ABDOMEN: soft, non-tender, and no masses PELVIC: external genitalia normal, normal Bartholin's glands, urethra, [place]'s glands, no vulvar lesions, no cervical lesions, physiologic discharge present, normal appearing perineal body and perianal region BIMANUAL: uterus normal size, shape and consistency, no adnexal masses, and non-tender RECTOVAGINAL: deferred. NEURO: alert and oriented x3,exam grossly non-focal EXTREMITIES: normal ASSESSMENT/PLAN: 1. Encounter for gynecological examination (general) (routine) without abnormal findings - ICD9: V72.31, ICD10: Z01.419 (primary diagnosis) - Completed pelvic and breast exam - Encouraged monthly BSE - Follow up for annual exam in one year. - PAP TEST 2. Screening for cervical cancer - ICD9: V76.2, ICD10: Z12.4 - PAP TEST 3. Encounter for screening for human papillomavirus (HPV) - ICD9: V73.81, ICD10: Z11.51 - PAP TEST 4. Encounter for screening mammogram for breast cancer - ICD9: V76.12, ICD10: Z12.31 - DINORAH SCREENING 5. Special screening for malignant neoplasms, colon - ICD9: V76.51, ICD10: Z12.11 - COLONOSCOPY SCREENING 6. Perimenopausal symptoms - ICD9: 627.2, ICD10: N95.1 - TSH BLD - FSH BLD - ESTRADIOL-17B BLD 7. Screening for STDs (sexually transmitted diseases) - ICD9: V74.5, ICD10: Z11.3 - GONORRHEA/CHLAMYDIA NAAT 8. Encounter for insertion of intrauterine contraceptive device (IUD) - ICD9: V25.11, ICD10: Z30.430 - INSERT INTRAUTERINE DEVICE Will notify patient of test results. Janna Delgado APRN.[facility] OPEN ACCESS QUESTIONNAIRE 1. Are you currently having any new or unusual stomach/gastrointes tinal issues at this time such as constipation, diarrhea, abdominal pain, rectal bleeding etc?No 2. Do you have any difficulty swallowing? No 3. Do you have any implanted devices such as a defibrillator, pacemaker, cardiac stents or deep brain stimulator? No 4. Do you ta (more content not included)... Normal [facility] ESTRADIOL-17B BLDon 11-05-19 E2 [Mass/Vol] 42 pg/mL [facility] Estradiol SerPl-mCncon 11-04 E2 [Mass/Vol] 42 pg/mL Normal [facility] Comment on above: Order Comment: Speci men Type: BLOOD SPECIMENOrdering Facility: [facility] Address: [address] [place], [place] [address] Result Comment: This test is not suitable for patients receiving treatment with the drug Fulvestrant (Faslodex). The drug causes an interference leading to falsely elevated estradiol results. Menstrual cycle Estradiol reference ranges: Follicular : < 234 pg/mL Ovulation : 41 to 398 pg/mL Luteal : < 342 pg/mL Estradiol reference ranges vary by gestational period: First trimester : 154 to 3243 pg/mL Second trimester : 1561 to 51801 pg/mL Third trimester : 8285 to >27760 pg/mL Post-menopausal Estradiol reference range: < 41 pg/mL Reference: 1. Estradiol - E2 (Estradiol III) [package insert V 3.0 Afghan]. [facility], [place], [place], January 2016. Performed By: #### 2 243-4, 19254-9, 3016-3 ####[facility] LABCLIA [id number] [place] [address] [place] FSH BLDon 11-05-2023 Follitropin Qn 5.7 m[IU]/mL See comment mIU/mL [facility] FSH SerPl-aCncon 11-05-2023 Follitropin Qn 5.7 m[IU]/mL Normal See comment [facility] Comment on above: Order Comment: Speci men Type: BLOOD SPECIMENOrdering Facility: [facility] Address: [address] [place] [address] Result Comment: Refe rence range: Follicular: 3.5-12.5 mIU/mL Ovulation: 4.7-21.5 mIU/mL Luteal: 1.7-7.7 mIU/mL Postmenopausal: 25.8-134.8 mIU/mL Performed By: #### 2 243-4, 30131-0, 3016-3 ####[facility] LABCLIA [id number] [place] [address] [place] HPV W/GENOTYPE THIN PREPon 0 11-05-2023 HPV 16 Ag Ql (Unsp spec) Negative Normal Negative for HPV DNA high risk type 16 by PCR [facility] Comment on above: Order Comment: Speci men Type: FLUID SPECIMENOrdering Facility: [facility] Address: [address] [place] [address] Performed By: #### L [id number], HPVHRT ####[facility] LABCLIA [id number] [place] [address] [place] HPV 18 Ag Ql (Unsp spec) Negative Normal Negative for HPV DNA high risk type 18 by PCR [facility] Comment on above: Order Comment: Speci men Type: FLUID SPECIMENOrdering Facility: [facility] Address: [address] [place] [address] Performed By: #### L [id number], HPVHRT ####[facility] LABCLIA [id number] [place] [address] [place] HPV 31+33+35+39+45+51+52+56 +58+59+66+68 DNA KAROLINA+probe Ql (Cvx) Negative for HPV DNA high risk types: 31,33,35,39,45,51,5 2,56,58,59,66,68 by PCR. Normal Negative for HPV DNA high risk types: 31,33,35,39,45,5 1,52,56,58,59,66 ,68 by PCR. [facility] Comment on above: Order Comment: Speci men Type: FLUID SPECIMENOrdering Facility: [facility] Address: [address] [place] [address] Performed By: #### L [id number], HPVHRT ####[facility] LABCLIA [id number] [place] [address] [place] PAP TESTon 11-05-2023 ADEQUACY Satisfactory for interpretation Normal [facility] Comment on above: Order Comment: Speci men Type: FLUID SPECIMENOrdering Facility: [facility] Address: [address] [place] [address] Performed By: #### L [id number], HPVHRT ####[facility] LABCLIA [id number] [place] [address] [place] CASE REPORT Normal [facility] Comment on above: Order Comment: Speci men Type: FLUID SPECIMENOrdering Facility: [facility] Address: [address] [place] [address] Result Comment: Gyne cologic Cytology Report Case: [id number] Authorizing Provider: Janna Delgado APRN.CLINICAL NURSING INSTRUCTOR Collected: 11/05/2023 10:17 AM Ordering Location: OB/Gynecology Received: 11/05/2023 02:49 PM First Screen: Ma[place], [place], [place], ASCP Specimen: Pap Test, ThinPrep, Cervix Performed By: #### L [id number], HPVHRT ####[facility] LABCLIA [id number] [place] [address] [place] CLINICAL HISTORY, CYTOLOGY, RETRIEVAL SPECIALIST Routine Exam Normal [facility] Comment on above: Order Comment: Speci men Type: FLUID SPECIMENOrdering Facility: [facility] Address: [address] [place] [address] Performed By: #### L [id number], HPVHRT ####[facility] LABCLIA [id number] [place] [address] [place] FINAL PERFORMING LAB Normal [facility] Comment on above: Order Comment: Speci men Type: FLUID SPECIMENOrdering Facility: [facility] Address: [address] [place] [address] Result Comment: Tech nical component, civil preparedness officer screening performed at [facility], [address] [place], [place] [id number] CLIA# [id number] Diagnostic interpretation performed at [facility], [address] [place], [place] [address] CLIA# [id number] School Year Nanny: Rakan Vazquez M.D. Performed By: #### L [id number], HPVHRT ####[facility] LABCLIA [id number] [place] [address] [place] HPV REFLEX Yes HPV Normal [facility] Comment on above: Order Comment: Speci men Type: FLUID SPECIMENOrdering Facility: [facility] Address: [address] [place] [address] Performed By: #### L [id number], HPVHRT ####[facility] LABCLIA [id number] [place] [address] [place] INTERPRETATION, CYTOLOGY, RETRIEVAL SPECIALIST Normal [facility] Comment on above: Order Comment: Speci men Type: FLUID SPECIMENOrdering Facility: [facility] Address: [address] [place] [address] Result Comment: Nega tive for intraepithelial lesion or malignancy. Performed By: #### L [id number], HPVHRT ####[facility] LABCLIA [id number] [place] [address] [place] LMP 11/05/2023 Normal [facility] Comment on above: Order Comment: Speci men Type: FLUID SPECIMENOrdering Facility: [facility] Address: [address] [place] [address] Performed By: #### L [id number], HPVHRT ####[facility] LABCLIA [id number] [address] [place] PAP DISCLAIMER COMMENT The Pap Smear is a screening test for cervical cancer. False negative results occur with all screening tests, emphasizing the need for rescreening at recommended intervals, and clinical correlation. Normal [facility] Comment on above: Order Comment: Speci men Type: FLUID SPECIMENOrdering Facility: [facility] Address: [address] [place] [address] Performed By: #### L [id number], HPVHRT ####[facility] LABCLIA [id number] [place] PAP TRAY SERVER COMMENT This specimen has been analyzed by the ThinPrep Imaging System, an automated imaging and review system, which assists the laboratory in evaluating cells on ThinPrep Pap tests. Following automated imaging, selected granado from every slide are reviewed by a civil preparedness officer. Normal [facility] Comment on above: Order Comment: Speci men Type: FLUID SPECIMENOrdering Facility: [facility] Address: [address] [place] [address] Performed By: #### L [id number], HPVHRT ####[facility] LABCLIA [id number] [place] [address] [place] TSH BLDon 11-05-2023 TSH Qn 0.915 m[IU]/L 0.270 - 4.200 mIU/L [facility] TSH SerPl-aCncon 11-05-2023 TSH Qn 0.915 m[IU]/L Normal 0.270-4.200 [facility] Comment on above: Order Comment: Speci men Type: BLOOD SPECIMENOrdering Facility: [facility] Address: [address] [place] [id number] Result Comment: If t he patient is , TSH reference range varies by gestational period: First Trimester (weeks 9-12): 0.180-2.990 mIU/L Second Trimester: 0.110-3.980 mIU/L Third Trimester: 0.480-4.710 mIU/L Bill Sterling et al. A Practical Approach for the Verifications and Determination of Site- and Trimester-Specific Reference Intervals for Thyroid Function tests in . Thyroid, 2019:29:3:412-420. Nimesh Chacon, et al. 2017 Guidelines of the [place] Thyroid Association for the Diagnosis and Management of Thyroid Disease during and the . Thyroid, 2017:27:3:315-389. Performed By: #### 2 243-4, 23968-1, 3016-3 ####[facility] LABCLIA [id number] [facility] [id number] [place] [address] [place] T3, FREE [CCL]on 04-11-2023 Free T3 [Mass/Vol] 3.2 pg/mL Normal 2.3-4.1 [facility] Comment on above: Result Comment: [facility] [address] [id number] Rakan Vazquez III, M.D. [id number] Performed By: #### 2 20043 #### [facility],[address] [place] [address] CMP with eGFRon 04-10-2023 AGE 47 years Normal [facility] Comment on above: Performed By: #### 2 19256 #### [facility],[address] [place] [address] 56778 Albumin [Mass/Vol] 3.5 g/dL Normal 3.4 - 5.0 [facility] Comment on above: Performed By: #### 2 86208 #### [facility],[address] [place] [address] 42988 Albumin/Globulin [Mass ratio] 0.9 {ratio} Normal 0.9 - 1.6 [facility] Comment on above: Performed By: #### 2 32011 #### [facility],[address] [place] [address] 39027 ALK PHOS 70 U/L Normal 46 - 116 [facility] Comment on above: Performed By: #### 2 62271 #### [facility],[address] [place] [address] 89981 ALT [Catalytic activity/Vol] 17 U/L Normal 14 - 59 [facility] Comment on above: Performed By: #### 2 24729 #### [facility],[address] [place] [address] 95612 Anion gap [Moles/Vol] 12 mmol/L Normal 10 - 20 [facility] Comment on above: Performed By: #### 2 63392 #### [facility],[address] [place] [address] 40812 AST [Catalytic activity/Vol] 16 U/L Normal 13 - 39 [facility] Comment on above: Performed By: #### 2 24896 #### [facility],[address] [place] [address] 46936 B/C RATIO 10 ratio Normal 0 - 30 [facility] Comment on above: Performed By: #### 2 48961 #### [facility],[address] [place] [address] 99952 Bilirubin [Mass/Vol] 0.3 mg/dL Normal 0.2 - 1.0 [facility] Comment on above: Performed By: #### 2 16463 #### [facility],[address] [place] [address] 11308 Calcium [Mass/Vol] 9.2 mg/dL Normal 8.5 - 10.1 [facility] Comment on above: Performed By: #### 2 75217 #### [facility],[address] [place] [address] 79380 Chloride [Moles/Vol] 104 mmol/L Normal 98 - 107 [facility] Comment on above: Performed By: #### 2 05707 #### [facility],[address] [place] [address] 70124 CMP with eGFR Normal [facility] Comment on above: Result Comment: COMP REHENSIVE METABOLIC PANEL Performed By: #### 2 18535 #### [facility],[address] [place] [address] 41153 CO2 [Moles/Vol] 28.1 mmol/L Normal 21.0 - 32.0 [facility] Comment on above: Performed By: #### 2 26694 #### [facility],[address] [place], [place] [id number] Creatinine [Mass/Vol] 0.87 mg/dL Normal 0.55 - 1.02 [facility] Comment on above: Performed By: #### 2 25739 #### [facility],[address] [place], [place] [address] GFR/1.73 sq M.predicted among non-blacks MDRD (S/P/Bld) [Vol rate/Area] mL/min/{1.73_m2} Normal 60 - 999 [facility] Comment on above: Performed By: #### 2 [id number] #### [facility],[address] [place] [address] 61799 Result Comment: ACCO RDING TO THE NATIONAL KIDNEY DISEASE EDUCATION PROGRAM(NKDE), A NORMAL eGFR IS A VALUE GREATER THAN OR EQUAL TO 60 ML/MIN/1.73 SQ METERS. CHRONIC KIDNEY DISEASE: <60mL/MIN/1.73 SQ METERS KIDNEY FAILURE: <15mL/MIN/1.73 SQ METERS THIS TEST SHOULD ONLY BE USED FOR PATIENTS 18 YEARS OF AGE AND OLDER. Globulin (S) [Mass/Vol] 3.9 g/dL High 1.5 - 3.8 [facility] Comment on above: Performed By: #### 2 [id number] #### [facility],[address] [place] [address] 21494 Glucose [Mass/Vol] 88 mg/dL Normal 74 - 106 [facility] Comment on above: Performed By: #### 2 [id number] #### [facility],[address] [place] [address] 05315 Potassium [Moles/Vol] 3.8 mmol/L Normal 3.5 - 5.1 [facility] Comment on above: Performed By: #### 2 21999 #### [facility],[address] [place] [address] 06603 Protein [Mass/Vol] 7.4 g/dL Normal 6.4 - 8.2 [facility] Comment on above: Performed By: #### 2 63471 #### [facility],[address] [place] [address] 65252 Sodium [Moles/Vol] 140 mmol/L Normal 136 - 145 [facility] Comment on above: Performed By: #### 2 17313 #### [facility],[address] [place] [address] 04037 Urea nitrogen [Mass/Vol] 9 mg/dL Normal 7 - 18 [facility] Comment on above: Performed By: #### 2 [id number] #### [facility],[address] [place] [address] 53879 LIPID PROFILEon 04-10-2023 Cholesterol [Mass/Vol] 224 mg/dL Normal 0 - 240 [facility] Comment on above: Performed By: #### 2 [id number] #### [facility],[address] [place] [address] 27221 Cholesterol in HDL [Mass/Vol] 55 mg/dL Normal 40 - 60 [facility] Comment on above: Performed By: #### 2 23674 #### [facility],[address] [place] [address] 34318 Cholesterol in LDL [Mass/Vol] 148 mg/dL High 0 - 129 [facility] Comment on above: Performed By: #### 2 10847 #### [facility],[address] [place] [address] 69522 Cholesterol.total/Jaylin sterol in HDL [Mass ratio] 4.1 {ratio} Normal 0.0 - 5.0 [facility] Comment on above: Performed By: #### 2 [id number] #### [facility],[address] [place] [address] 17321 Lipid 1996 panel Normal [facility] Comment on above: Result Comment: LIPI D PROFILE Performed By: #### 2 [id number] #### [facility],[address] [place] [address] 96202 Triglyceride [Mass/Vol] 106 mg/dL Normal 0 - 150 [facility] Comment on above: Performed By: #### 2 16199 #### [facility],[address] [place] [address] 11738 T3Free SerPl-mCncon 04-10-20 Free T3 [Mass/Vol] 3.2 pg/mL Normal 2.3-4.1 [facility] Comment on above: Order Comment: Speci men Type: BLOOD SPECIMENOrdering Facility: [facility] Address: [address] [place] [address] Performed By: #### 3 [id number] ####[facility] LABCLIA [id number] [place] [address] [place] T4-FREE (FREE THYROXINE)on 0 04-10-2023 Free T4 [Mass/Vol] 0.87 ng/dL Normal 0.76 - 1.46 [facility] Comment on above: Result Comment: P otential of falsely elevated results when biotin concentrations are > 10 ng/mL. Performed By: #### 2 [id number] #### [facility],[address] [place] [address] 01809 TSHon 04-10-2023 TSH Qn 1.43 m[IU]/L Normal 0.35 - 3.74 [facility] Comment on above: Performed By: #### 2 75779 #### [facility],[address] [id number] SCREENINGon 10-30-2022 [facility] Absolute lymphocyte counton 12-05-2021 Lymphocytes Auto (Unsp spec) [#/Vol] 1.83 10*3/uL 0.83-4.51 [facility] Work Phone: Basophil percentageon 2021 Basophils/100 WBC (Bld) 0.7 % 0-1 [facility] Work Phone: Chloride [Moles/Vol] 104 mmol/L 98-107 [facility] Work Phone: Eosinophils/100 WBC (Bld) 4.2 % 0-5 [facility] Work Phone: Glucose [Mass/Vol] 90 mg/dL 74-106 [facility] Work Phone: Neutrophils (Bld) [#/Vol] 4.8 10*3/uL 2.0-7.7 [facility] Work Phone: Neutrophils/100 WBC (Bld) 63.1 % 47-70 [facility] Work Phone: Potassium [Moles/Vol] 3.8 mmol/L 3.5-5.1 [facility] Work Phone: Sodium [Moles/Vol] 139 mmol/L 136-145 [facility] Work Phone: WBC (Bld) [#/Vol] 7.6 10*3/uL 4.4-11.0 [facility] Work Phone: Blood erythrocytes count (nu mber/volume)on 12-05-2021 RBC (Bld) [#/Vol] 4.46 10*6/uL 4.2-5.4 [facility] Work Phone: Blood hemoglobin measurement (mass/volume)on 12-05-2021 Hemoglobin (Bld) [Mass/Vol] 13.7 g/dL 12.0-15.0 [facility] Work Phone: Blood lymphocytes/100 leukoc yteson 12-05-2021 Lymphocytes/100 WBC (Bld) 24.0 % 19-41 [facility] Work Phone: Blood monocytes/100 leukocyt eson 12-05-2021 Monocytes/100 WBC (Bld) 7.7 % 0-10 [facility] Work Phone: Blood platelet mean volumeon 12-05-2021 Platelet mean volume (Bld) [Entitic vol] 10.4 fL 6.2-12.0 [facility] Work Phone: Determination of erythrocyte mean corpuscular volume (MCV)on 12-05-2021 MCV (RBC) [Entitic vol] 90.1 fL 81-99 [facility] Work Phone: Erythrocyte sedimentation ra mallorie 12-05-2021 ESR (Bld) [Velocity] 18 mm/h 0-30 [facility] Work Phone: Hematocrit Auto (Bld) [Volum e fraction]on 12-05-2021 Hematocrit (Bld) [Volume fraction] 40.2 % 37-47 [facility] Work Phone: Laboratory - Chemistry and C hemistry - challengeon 12-05-2021 CO2 [Moles/Vol] 28.0 mmol/L 21.0-32.0 [facility] Work Phone: Urea nitrogen/Creatinine [Mass ratio] 10.0 mg/mg 10-20 [facility] Work Phone: Laboratory - Hematology and Cell countson 12-05-2021 Erythrocyte distribution width (RBC) [Entitic vol] 42.8 fL 35.1-43.9 [facility] Work Phone: [phone] Erythrocyte distribution width (RBC) [Ratio] 12.9 % 11.6-14.6 [facility] Work Phone: Immature granulocytes/100 WBC (Bld) 0.300 % 0.0-0.9 [facility] Work Phone: Comment on above: IG% - Immature Granu locytes (promyelocytes, myelocytes and metamyelocytes) > 1% indicates that a LEFT SHIFT is Present. MCH (RBC) [Entitic mass] 30.7 pg 27.0-32.0 [facility] Work Phone: [phone] Nucleated RBC/100 WBC (Bld) [Ratio] 0 % 0-5 [facility] Work Phone: [phone] MCHC Auto (RBC) [Mass/Vol]on 12-05-2021 MCHC (RBC) [Mass/Vol] 34.1 g/dL 32-36 [facility] Work Phone: [phone] No Panel Informationon 12-05 Estimated GFR (MDRD) Amer 87 mL/min >60 [facility] Work Phone: Comment on above: GFR Calc Estimated GFR (MDRD) Non-Af Amer 72 mL/min >60 [facility] Work Phone: Comment on above: Non- GFR Calc Thyroid Stimulating Hormone (TSH) 0.94 uIU/mL 0.358-3.74 [facility] Work Phone: [phone] Vitamin D 25-Hydroxy 29.1 ng/mL [facility] Work Phone: [phone] Comment on above: Vitamin D 25(OH) Sta tus Range Deficiency <20 ng/mL (50nmol/L) Insufficiency 20 - 30 ng/mL (50 - 75 nmol/L) Sufficiency 30 - 100 ng/mL (75 - 250 nmol/L) Toxicity >100 ng/mL (>250 nmol/L) Platelets bldon 12-05-2021 Platelets (Bld) [#/Vol] 301 10*3/uL 150-450 [facility] Work Phone: [phone] Serum or plasma calcium radha urement (mass/volume)on 12-05-2021 Calcium [Mass/Vol] 9.0 mg/dL 8.5-10.1 [facility] Work Phone: [phone] Serum or plasma creatinine m easurement (mass/volume)on 12-05-2021 Creatinine [Mass/Vol] 0.90 mg/dL 0.55-1.02 [facility] Work Phone: Comment on above: The validity of the calculated GFR & GFRAA in patients over 70 years has not been determined. Clinical correlation is essential. 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 [facility] Comment on above: Result Comment: Posi tive for This test was developed and its performance characteristics determined by [facility]. This test has been authorized by FDA under an Emergency Use Authorization (EUA). This test has been validated in accordance with the FDA's Guidance Document Policy for Diagnostics Testing in Laboratories Certified to Perform High Complexity Testing under CLIA prior to Emergency use Authorization for Coronavirus Disease 2019 during the Public Health Emergency issued on October 18, 2019. COVID19 (SARS This test was developed and its performance characteristics determined by [facility] [place]. This test has been authorized by FDA under an Emergency Use Authorization (EUA). This test has been validated in accordance with the FDA's Guidance Document Policy for Diagnostics Testing in Laboratories Certified to Perform High Complexity Testing under CLIA prior to Emergency use Authorization for Coronavirus Disease 2019 during the Public Health Emergency issued on October 18, 2019. CoV2) by This test was developed and its performance characteristics determined by [facility]. This test has been authorized by FDA under an Emergency Use Authorization (EUA). This test has been validated in accordance with the FDA's Guidance Document Policy for Diagnostics Testing in Laboratories Certified to Perform High Complexity Testing under CLIA prior to Emergency use Authorization for Coronavirus Disease 2019 during the Public Health Emergency issued on October 18, 2019. PCR.(*) This test was developed and its performance characteristics determined by [facility]'s [facility]. This test has been authorized by FDA under an Emergency Use Authorization (EUA). This test has been validated in accordance with the FDA's Guidance Document Policy for Diagnostics Testing in Laboratories Certified to Perform High Complexity Testing under CLIA prior to Emergency use Authorization for Coronavirus Disease 2019 during the Public Health Emergency issued on October 18, 2019. Coronavirus 2019on 0 COVID 19 Source EXCAVATOR OPERATOR [facility] Comment on above: Result Comment: Naso pharyngeal Corrected on 07/09 AT 0952: Previously reported as NASAL Swab Corrected on 07/09 AT 0952: Previously reported as NASAL Vital Signs Date Time Vital Sign Value Performing Clinician Faci lity 01-13-2025 13:39-0400 Body temperature 98.1 [degF] Dr. Avinash Corona MD Work Phone: [phone] [place] [address] 01-13-2025 13:39-0400 Diastolic blood pressure 85 mm[Hg] Dr. Avinash Corona MD Work Phone: [phone] [place] [address] 01-13-2025 13:39-0400 Heart rate 90 /min Dr. Avinash Corona MD Work Phone: [phone] [place] [address] 01-13-2025 13:39-0400 Respiratory rate 16 /min Dr. Avinash Corona MD Work Phone: [phone] [place] [address] 01-13-2025 13:39-0400 SaO2% (BldA) [Mass fraction] 98 % Dr. Avinash Corona MD Work Phone: [phone] [place] [address] 01-13-2025 13:39-0400 Systolic blood pressure 133 mm[Hg] Dr. Avinash Corona MD Work Phone: [phone])339-355790 [place] [address] 01-13-2025 11:38-0400 Body height 167.[address] Avinash Corona MD Work Phone: [phone] [place] [address] 01-13-2025 11:38-0400 Body mass index (BMI) [Ratio] 40.4 kg/m2 Dr. Avinash Corona MD Work Phone: [phone] [place] [address] 05-27-2025 11:38-0400 Body weight 113.[address] Avinash Corona MD Work Phone: [facility] 01-23-2024 13:00-0400 Body height 168.3 cm Karla Grant APRN.CLINICAL NURSING INSTRUCTOR Work Phone: [facility] 01-23-2024 13:00-0400 Body mass index (BMI) [Ratio] 38.59 kg/m2 Karla Grant OLIVE PICKER.CLINICAL NURSING INSTRUCTOR Work Phone: [facility] 01-23-2024 13:00-0400 Body weight 109.32 kg Karla Grant OLIVE PICKER.CLINICAL NURSING INSTRUCTOR Work Phone: [facility] 01-23-2024 13:00-0400 Diastolic blood pressure 84 mm[Hg] Karla Grant OLIVE PICKER.CLINICAL NURSING INSTRUCTOR Work Phone: [facility] 01-23-2024 13:00-0400 Systolic blood pressure 122 mm[Hg] Karla Grant OLIVE PICKER.CLINICAL NURSING INSTRUCTOR Work Phone: [facility] 12-12-2023 12:05-0400 Body mass index (BMI) [Ratio] 39.68 kg/m2 Anne-Marie Murphy OLIVE PICKER.CLINICAL NURSING INSTRUCTOR Work Phone: [facility] 12-12-2023 12:05-0400 Body temperature 98.4 [degF] Anne-Marie Murphy OLIVE PICKER.CLINICAL NURSING INSTRUCTOR Work Phone: [facility] 12-12-2023 12:05-0400 Body weight 111.5 kg Anne-Marie Murphy OLIVE PICKER.CLINICAL NURSING INSTRUCTOR Work Phone: [facility] 12-12-2023 12:05-0400 Diastolic blood pressure 66 mm[Hg] Anne-Marie Murphy OLIVE PICKER.CLINICAL NURSING INSTRUCTOR Work Phone: [facility] 12-12-2023 12:05-0400 Heart rate 96 /min Anne-Marie Murphy OLIVE PICKER.CLINICAL NURSING INSTRUCTOR Work Phone: [facility] 12-12-2023 12:05-0400 Respiratory rate 16 /min Anne-Marie Murphy OLIVE PICKER.CLINICAL NURSING INSTRUCTOR Work Phone: [facility] 12-12-2023 12:05-0400 SaO2% (BldA) [Mass fraction] 99 % Anne-Marie Murphy OLIVE PICKER.CLINICAL NURSING INSTRUCTOR Work Phone: [facility] 12-12-2023 12:05-0400 Systolic blood pressure 126 mm[Hg] Anne-Marie Murphy OLIVE PICKER.CLINICAL NURSING INSTRUCTOR Work Phone: [facility] 11-22-2023 12:26-0400 Diastolic blood pressure 67 mm[Hg] Reed Lopez MD Work Phone: [facility] 11-22-2023 12:26-0400 Heart rate 67 /min Reed Lopez MD Work Phone: [facility] 11-22-2023 12:26-0400 Respiratory rate 16 /min Reed Lopez MD Work Phone: [facility] 11-22-2023 12:26-0400 SaO2% (BldA) [Mass fraction] 98 % Reed Lopez MD Work Phone: [facility] 11-22-2023 12:26-0400 Systolic blood pressure 110 mm[Hg] Reed Lopez MD Work Phone: [facility] 11-22-2023 11:18-0400 Body temperature 98.1 [degF] Reed Lopez MD Work Phone: [facility] 11-05-2023 09:12-0400 Body height 167.6 cm Janna Sandy OLIVE PICKER.CLINICAL NURSING INSTRUCTOR Work Phone: [facility] 11-05-2023 09:12-0400 Body weight 107.05 kg Janna Bristow OLIVE PICKER.CLINICAL NURSING INSTRUCTOR Work Phone: [facility] 11-05-2023 09:12-0400 Diastolic blood pressure 72 mm[Hg] Janna Sandy OLIVE PICKER.CLINICAL NURSING INSTRUCTOR Work Phone: [facility] 11-05-2023 09:12-0400 Systolic blood pressure 120 mm[Hg] Janna Sandy OLIVE PICKER.CLINICAL NURSING INSTRUCTOR Work Phone: [facility] 10-30-2022 13:30-0400 Body height 167.6 cm Janna Bristow OLIVE PICKER.CLINICAL NURSING INSTRUCTOR Work Phone: [facility] 10-30-2022 13:30-0400 Body weight 110.68 kg Janna Sandy OLIVE PICKER.CLINICAL NURSING INSTRUCTOR Work Phone: [facility] 10-30-2022 13:30-0400 Diastolic blood pressure 74 mm[Hg] Janna Sandy OLIVE PICKER.CLINICAL NURSING INSTRUCTOR Work Phone: [facility] 10-30-2022 13:30-0400 Systolic blood pressure 120 mm[Hg] Janna Sandy OLIVE PICKER.CLINICAL NURSING INSTRUCTOR Work Phone: [facility] Encounters Encounter Date Encounter Type Care Provider Facility Start: 01-13-2025 End: 01-13-2025 Emergency department patient visit Dr. Avinash Corona MD Work Phone: -Emergency Department Work Phone: Start: 05-26-2024 Encounter for genera l adult medical examination without abnormal findings Carlotta BENAVIDES [facility] Start: 05-02-2024 End: 05-02-2024 ambulatory Carlotta BENAVIDES Facility:[facility] Start: 04-18-2024 End: 04-18-2024 ambulatory Karla Bhatti [place] [place] Start: 04-12-2024 End: 04-14-2024 Refill Karla Grant APRN.CLINICAL NURSING INSTRUCTOR Work Phone: OB/Gynecology Comment on above: Refill Request Start: 03-11-2024 End: 03-11-2024 ambulatory Karla Bhatti [place] [place] Start: 01-23-2024 End: 01-23-2024 ambulatory KARLA BHATTI Facility:[facility] Start: 01-23-2024 End: 01-23-2024 Patient encounter procedure Karla Grant APRN.CNP Work Phone: OB/Gynecology Comment on above: Elevated LDL cholest hermilo level (Primary Dx); Vitamin D deficiency; Depression, unspecified depression type; Generalized anxiety disorder; Malaise and fatigue; Craving for particular food; History of gestational diabetes; Screening cholesterol level; Screening for deficiency anemia; Screening for diabetes mellitus; Screening for metabolic disorder; Encounter for vitamin deficiency screening; Class 2 severe obesity with serious comorbidity and body mass index (BMI) of 39.0 to 39.9 in adult, unspecified obesity type (HCC) Start: 12-12-2023 End: 12-12-2023 ambulatory [facility] Facility:[facility] Start: 12-12-2023 End: 12-12-2023 Patient encounter procedure Anne-Marie Murphy OLIVE PICKER.CLINICAL NURSING INSTRUCTOR Work Phone: [facility] Comment on above: Infection of right e arlobe (Primary Dx) Start: 12-08-2023 ambulatory Janna Delgado OLIVE PICKER.CLINICAL NURSING INSTRUCTOR Work Phone: OB/Gynecology Comment on above: Bleeding Start: 12-03-2023 Telephone encounter Reed lauren MD Work Phone: General Surgery Comment on above: Patient Question Start: 11-22-2023 End: 11-22-2023 ambulatory [facility] Facility:[facility] Start: 11-22-2023 End: 11-22-2023 Subsequent hospital visit by physician Reed Lopez MD Work Phone: Ambulatory Surgery Comment on above: Special screening fo r malignant neoplasms, colon [Z12.11] Start: 11-16-2023 End: 11-16-2023 ambulatory [facility] Facility:[facility] Start: 11-09-2023 Documentation procedure Mammog andrew Coordinator [facility] Start: 11-09-2023 Letter encounter Mammography Coordinator [facility] Department Start: 11-09-2023 End: 11-09-2023 ambulatory [facility] Facility:[facility] Start: 11-09-2023 End: 11-09-2023 Subsequent hospital visit by physician [facility] Comment on above: Encounter for screen ing mammogram for breast cancer [Z12.31] Start: 11-05-2023 End: 11-05-2023 ambulatory [facility] Facility:[facility] Start: 11-05-2023 End: 11-05-2023 Patient encounter procedure Janna Delgado OLIVE PICKER.CLINICAL NURSING INSTRUCTOR Work Phone: OB/Gynecology Comment on above: Encounter for gyneco logical examination (general) (routine) without abnormal findings (Primary Dx); Screening for cervical cancer; Encounter for screening for human papillomavirus (HPV); Encounter for screening mammogram for breast cancer; Special screening for malignant neoplasms, colon; Perimenopausal symptoms; Screening for STDs (sexually transmitted diseases); Encounter for insertion of intrauterine contraceptive device (IUD) Start: 11-05-2023 End: 11-05-2023 Patient encounter status Janna Delgado APRN.CNP Work Phone: [facility] Start: 04-11-2023 ambulatory Janna Delgado APRN.LILIANA Work Phone: OB/Gynecology Comment on above: Mammogram Start: 04-10-2023 End: 04-10-2023 ambulatory [facility] Start: 10-31-2022 Documentation procedure Mammog andrew Coordinator [facility] Start: 10-31-2022 Letter encounter Mammography Coordinator [facility] Department Start: 10-30-2022 End: 10-30-2022 Patient encounter procedure Janna Delgado APRN.LILIANA Work Phone: OB/Gynecology Comment on above: Encounter for gyneco logical examination (general) (routine) without abnormal findings (Primary Dx); Encounter for screening mammogram for breast cancer Start: 10-30-2022 End: 10-30-2022 Patient encounter status Janna Delgado APRN.LILIANA Work Phone: OB/Gynecology Start: 10-30-2022 End: 10-30-2022 Subsequent hospital visit by physician Screen Mammo [facility] Comment on above: Encounter for screen ing mammogram for breast cancer [Z12.31] Start: 08-02-2022 Refill Janna Delgado APRN.LILIANA Work Phone: OB/Gynecology Comment on above: Refill Request Start: 12-05-2021 End: 12-05-2021 Patient encounter procedure [facility] Procedures Date Procedure Procedure Detail Performing Clinician Start: 01-13-2025 X-ray of chest, PA a nd lateral views Dr. Avinash Corona MD Work Phone: Start: 01-13-[address] Avinash Corona MD Work Phone: Start: 11-22-2023 Colonoscopy flx dx w /collj spec when pfrmd Janna Sandy OLIVE PICKER.CLINICAL NURSING INSTRUCTOR Work Phone: Start: 11-22-2023 Colonoscopy Reed huff MD Work Phone: Start: 11-09-2023 Screening mammograph y bi 2-view breast inc cad Janna Bristow OLIVE PICKER.CLINICAL NURSING INSTRUCTOR Work Phone: Start: 10-30-2022 End: 10-30-2022 Mammography Janna Sandy OLIVE PICKER.C EXCAVATOR OPERATOR Work Phone: Start: 09-16-2020 [facility].CLINICAL NURSING INSTRUCTOR Work Phone: Plan of Treatment Date Care Activity Detail Author Start: 11-21-2028 Screening for malign ant neoplasm of colon [facility] Start: 11-04-2028 Screening for malign ant neoplasm of cervix [facility] Start: 04-14-2025 Urine microalbumin profile [facility] Start: 01-13-2025 [facility] Start: 01-13-2025 [facility] Start: 11-21-2024 Screening for malign ant neoplasm of colon [facility] Start: 11-08-2024 Screening for malign ant neoplasm of breast Mammogram Screening [facility] Start: 05-07-2024 HPV TESTING HPV TESTING [facility] Start: 05-07-2024 PAP TESTING PAP TESTING [facility] Start: 05-07-2024 Screening for malign ant neoplasm of cervix [facility] Start: 04-20-2024 Influenza vaccination [facility] Start: 03-06-2024 End: 03-06-2024 Patient encounter procedure 03/06/2024 11:30 AM EDT Office Visit OB/Gynecology [address] [place] [id number] Karla Grant OLIVE PICKER.CLINICAL NURSING INSTRUCTOR [address] [place] [phone] wt mgmt f/u OB/Gynecology Comment on above: wt mgmt f/u Start: 02-13-2024 End: 02-13-2024 Patient encounter procedure 02/13/2024 11:30 AM EDT Office Visit Colorectal Surgery [address] [place] [address] Eddie Mccollum MD [address] [place] [address] she has a long flat polyp in her ascending colon . I bx it and inked it. it looks benign. Colorectal Surgery Comment on above: she has a long flat polyp in her ascending colon . I bx it and inked it. it looks benign. Start: 01-23-2024 End: 04-23-2024 25-hydroxyvitamin D3 [Mass/volume] in Serum or Plasma VITAMIN D 25 HYDROXY Lab Routine Vitamin D deficiency Depression, unspecified depression type Malaise and fatigue Encounter for vitamin deficiency screening Class 2 severe obesity with serious comorbidity and body mass index (BMI) of 39.0 to 39.9 in adult, unspecified obesity type (HCC) Expected: 01/23/2024, Expires: 04/23/2024 [facility] Work Phone: Comment on above: Expected: 01/23/2024 , Expires: 04/23/2024 Start: 01-23-2024 End: 04-23-2024 CBC panel - Blood by Automated count COMPLETE BLOOD COUNT Lab Routine Malaise and fatigue Screening for deficiency anemia Class 2 severe obesity with serious comorbidity and body mass index (BMI) of 39.0 to 39.9 in adult, unspecified obesity type (HCC) Expected: 01/23/2024, Expires: 04/23/2024 [facility] Comment on above: Expected: 01/23/2024 , Expires: 04/23/2024 Start: 01-23-2024 End: 04-23-2024 Comprehensive metabolic 2000 panel - Serum or Plasma COMPREHENSIVE METABOLIC PANEL Lab Routine History of gestational diabetes Screening for diabetes mellitus Screening for metabolic disorder Class 2 severe obesity with serious comorbidity and body mass index (BMI) of 39.0 to 39.9 in adult, unspecified obesity type (HCC) Expected: 01/23/2024, Expires: 04/23/2024 [facility] Comment on above: Expected: 01/23/2024 , Expires: 04/23/2024 Start: 01-23-2024 End: 04-23-2024 Hemoglobin A1c in Blood HEMOGLOBIN A1C Lab Routine History of gestational diabetes Screening for diabetes mellitus Class 2 severe obesity with serious comorbidity and body mass index (BMI) of 39.0 to 39.9 in adult, unspecified obesity type (HCC) Expected: 01/23/2024, Expires: 04/23/2024 [facility] Comment on above: Expected: 01/23/2024 , Expires: 04/23/2024 Start: 01-23-2024 End: 04-23-2024 Insulin [Units/volume] in Serum or Plasma INSULIN ASSAY BLOOD Lab Routine History of gestational diabetes Screening for diabetes mellitus Class 2 severe obesity with serious comorbidity and body mass index (BMI) of 39.0 to 39.9 in adult, unspecified obesity type (HCC) Expected: 01/23/2024, Expires: 04/23/2024 [facility] Comment on above: Expected: 01/23/2024 , Expires: 04/23/2024 Start: 01-23-2024 End: 04-23-2024 Lipid 1996 panel - Serum or Plasma LIPID PANEL BASIC Lab Routine Elevated LDL cholesterol level Screening cholesterol level Class 2 severe obesity with serious comorbidity and body mass index (BMI) of 39.0 to 39.9 in adult, unspecified obesity type (HCC) Expected: 01/23/2024, Expires: 04/23/2024 [facility] Comment on above: Expected: 01/23/2024 , Expires: 04/23/2024 Start: 01-23-2024 End: 01-23-2024 Patient encounter procedure 01/23/2024 1:00 PM EDT Office Visit OB/Gynecology [address] [place] [id number] Karla Grant APRN.CLINICAL NURSING INSTRUCTOR [address] [place] [id number] [facility] OB/Gynecology Comment on above: [facility] Start: 12-26-2023 End: 12-26-2023 Patient encounter procedure 12/26/2023 8:00 AM EDT Office Visit Colorectal Surgery [address] [place] [address] Eddie Mccollum MD [address] [place] [address] she has a long flat polyp in her ascending colon . I bx it and inked it. it looks benign. Colorectal Surgery Comment on above: she has a long flat polyp in her ascending colon . I bx it and inked it. it looks benign. Start: 12-24-2023 End: 12-24-2023 Patient encounter procedure 12/24/2023 8:00 AM EDT Office Visit OB/Gynecology [address] [place] [address] Janna Delgado APRN.CLINICAL NURSING INSTRUCTOR [address] [place] [address] IUD 4-6 wk follow up OB/Gynecology Comment on above: IUD 4-6 wk follow up Start: 10-31-2023 Mammography [facility] Start: 10-31-2023 Screening for malign ant neoplasm of breast Mammogram Screening [facility] Start: 08-20-2023 Behavioral Health Screening Behavioral Health Screening [facility] Start: 08-20-2023 Depression Assessment Depression Ass essment [facility] Start: 04-20-2023 Covid-19 Vaccine ( season) Covid-19 Vaccine ( season) [facility] Start: 04-20-2023 Influenza vaccination C [facility] Start: 08-20-2022 DEPRESSION ASSESSMENT DEPRESSION ASS ESSMENT [facility] Start: 04-20-2022 Influenza vaccination INFLUENZA (#1) [facility] Start: 03-09-2022 COVID-19 VACCINE (4 - Booster for Moderna series) COVID-19 VACCINE (4 - Booster for Moderna series) [facility] Start: 03-09-2022 COVID-19 VACCINE (4 - Moderna series) COVID-19 VACCINE (4 - Moderna series) [facility] Start: 2021 COLOGUARD (FIT-DNA) COLOGUARD (FIT-D NA) [facility] Start: 2021 Colonoscopy COLONOSCOPY [facility] Start: 2021 COLORECTAL CANCER SCREENING COLORECTAL CANCER SCREENING [facility] Start: [address] COLONOGRAPHY [facility] Start: 2021 [facility] Start: 2021 Diabetes Screening Diabetes Screenin g [facility] Start: 2021 FECAL OCCULT BLOOD FECAL OCCULT BLOO D [facility] Start: 2021 Lipid 1996 panel - Serum or Plasma Lipid Screening [facility] Start: 2021 Lipid panel Lipid Screening [facility] Start: 2021 LIPID SCREEN LIPID SCREEN [facility] Start: 2021 Screening for malign ant neoplasm of colon [facility] Start: 2021 SIGMOIDOSCOPY SIGMOIDOSCOPY [facility] Start: 09-16-2021 Mammography MAMMOGRAM [facility] Start: 08-20-2021 DEPRESSION ASSESSMENT DEPRESSION ASS ESSMENT [facility] Start: 06-16-2021 COVID-19 VACCINE (3 - Booster for Moderna series) COVID-19 VACCINE (3 - Booster for Moderna series) [facility] Start: 12-23-1995 Hepatitis B Vaccine (1 of 3 - 19+ 3-dose series) Hepatitis B Vaccine (1 of 3 - 19+ 3-dose series) [facility] Start: 1994 HEPATITIS C SCREENING HEPATITIS C [facility] Start: 1994 Hepatitis C screening Hepatitis C [facility] Start: 1976 HEPATITIS B (1 of 3 - 3-dose series) HEPATITIS B (1 of 3 - 3-dose series) [facility] Start: 1976 Hepatitis B Vaccine (1 of 3 - 3-dose series) Hepatitis B Vaccine (1 of 3 - 3-dose series) [facility] Chlamydia trachomatis+Neisseria gonorrhoeae DNA [Presence] in Unspecified specimen by KAROLINA with probe detection GONORRHEA/CHLAMYDIA NAAT Lab Routine Screening for STDs (sexually transmitted diseases) 11/05/2023 10:17 AM EDT [facility] Work Phone: Insertion intrauteri ne device iud INSERT INTRAUTERINE DEVICE Procedures Routine Encounter for insertion of intrauterine contraceptive device (IUD) Ordered: 11/05/2023 [facility] Work Phone: Comment on above: Ordered: 11/05/2023 End: 11-29-2023 DINORAH SCREENING DINORAH SCREENING Radiology Routine Encounter for screening mammogram for breast cancer 1 Occurrences starting 10/30/2022 until 11/29/2023 [facility] Work Phone: Comment on above: 1 Occurrences starti ng 10/30/2022 until 11/29/2023 End: 12-04-2024 MG Breast Screening DINORAH SCREENING Radiology Routine Encounter for screening mammogram for breast cancer 1 Occurrences starting 11/05/2023 until 12/04/2024 [facility] Work Phone: Comment on above: 1 Occurrences starti ng 11/05/2023 until 12/04/2024 PAP TEST PAP TEST Lab [facility] cass Encounter for gynecological examination (general) (routine) without abnormal findings Screening for cervical cancer Encounter for screening for human papillomavirus (HPV) 11/05/2023 10:17 AM EDT [facility] Work Phone: Patient Education ED Hypertensio n, To Be Confirmed ED Paraesthesias [facility] Work Phone: Patient referral [facility] Work Phone: End: 11-04-2024 Screening colonoscopy COLONOSCOPY SCREENING Endoscopy Routine Special screening for malignant neoplasms, colon 1 Occurrences starting 11/05/2023 until 11/04/2024 [facility] Work Phone: Comment on above: 1 Occurrences starti ng 11/05/2023 until 11/04/2024 SURGICAL PATHOLOGY [facility] Work Phone: Comment on above: Release Upon Orderin g for 1 Occurrences starting 11/22/2023, 1 completed [facility] Immunizations Immunization Date Immunization Notes Care Provider [facility] 05-14-2019 influenza virus vaccine, unspecified formulation Screen [facility] 05-11-2015 influenza, injectabl e, quadrivalent, contains preservative Janna Sandy OLIVE PICKER.CLINICAL NURSING INSTRUCTOR Work Phone: [facility] 04-14-2015 RHO(D) immune globul in- IV or IM Janna Bristow OLIVE PICKER.CLINICAL NURSING INSTRUCTOR Work Phone: [facility] Work Phone: 04-14-2015 tetanus toxoid, redu rae diphtheria toxoid, and acellular pertussis vaccine, adsorbed Janna Bristow OLIVE PICKER.CLINICAL NURSING INSTRUCTOR Work Phone: [facility] 11-13-2007 RHO(D) immune globul in- IV or IM Janna Sandy OLIVE PICKER.[facility] Work Phone: [facility] Work Phone: Payers Date Payer Category Payer Self-pay [id number] 2024 Unknown [id number] 2023 Private Health Insurance [id number] 2022 Medicaid [id number] 2014 Private Health Insurance [id number] Unknown [facility] LIDIA [id number] Unknown [id number] Unknown [id number] Unknown [id number] Unknown [id number] Social History Date Type Detail Facility Start: 06-21-2015 Tobacco smoking status NHIS Unknown if ever smoked [facility] Work Phone: Start: 1975 Sex Assigned At Female [facility] Start: 12-15-2014 End: 11-05-2023 Tobacco smoking status NHIS Ex-smoker [facility] History of tobacco use Current smoker [facility] Start: 12-15-2014 End: 11-05-2023 Tobacco use and exposure Smokeless tobacco non-user [facility] Start: 07-28-2021 End: 01-23-2024 Alcohol intake Current drinker of alcohol (finding) [facility] Start: 09-16-2012 End: 10-30-2022 Tobacco Comment Socially smoked in the past [facility] Start: 12-15-2014 Alcohol Comment occasionally; not while [facility] Start: 1975 Sex Assigned At Not on file [facility] Start: 10-30-2022 End: 11-05-2023 History of Social function [facility] Start: 10-30-2022 End: 11-05-2023 Tobacco use panel [facility] National Score (1-100), lower number is lower risk 78 [facility] Start: 01-13-2025 Tobacco smoking status NHIS Never smoked tobacco (finding) [facility] NEGATED: Highlighted rowStart: NINF History of tobacco use Passive smoker [facility] Mental Status Date Assessment Result Facility 01-13-2025 Cognitive function Voice/Name [facility] Work Phone: Clinical Notes 04-15-2015 to 01-13-2025 Karla Grant APRN.CLINICAL NURSING INSTRUCTOR - 01/23/2024 1:00 PM EDTPatient Anne-Marie Espinoza APRN.CLINICAL NURSING INSTRUCTOR - 12/12/2023 12:13 PM EDTTelephone Encounter - Thea Palomo - 12/06/2023 1:56 PM EDT Note Date & Type Note Facility 01-13-2025 Discharge summary [facility] 01-13-2025 Radiology Diagnostic study note [facility] Services [address] [place], [place] [address] Chest PA and Lateral MR#: [id number] Acct: [id number] Name: YAZMIN WELCH Rep #: [id number] : 1975 F 49 From: Isidoro Osborn MD PCP: Marlin Sam PA-C Status: REG E R Study:Chest PA and Lateral Date of Exam: 01/13/25 Exam# [id number] Ordering Dr: Rhina Corona MD PROCEDURE: CHEST PA AND LATERAL 01/13/2025 REASON FOR EXAM: CHEST PAIN TECHNIQUE: Frontal and lateral views of the chest. COMPARISON: None FINDINGS: Hardware: EKG electrodes are seen. Heart: The heart size is normal. Mediastinum: The mediastinal contour is unremarkable. Lungs: The lungs are clear. Bones: Degenerative changes are identified within the thoracic spine. RAD/Chest PA and Lateral IMPRESSION: NO ACUTE FINDINGS. Reading Location: [place] [address] CC: BENEDICTO Sam; Dr. Avinash Corona MD ~ Foreign Correspondent: Signed [facility] 01-23-2024 History of Present illness Narrative Images from the original note were not included. Patient Summary: Yazmin Welch is a 48 year old female with obesity who presents for an initial evaluation of overweight/obesity to treat and prevent co-morbidities and is interested in open to all options. Motivation for seeking treatment for the disease of overweight/obesity : wants to feel more comfortable, decrease breast size Goal weight: 175-180 Lowest recall weight: 165 Highest non- recall weight: 241 Patient identified barriers to weight loss: gets frustrated quickly with weight loss Weight History: She reports a strong family history of obesity and early adulthood weight gain. She states her weight gain is related to the following factors, including weight retention, onset of menopause, exposure to a weight gain promoting medication, Cymbalta, reduced physical activity, and consumption of unhealthy foods. Difficulty losing weight? Yes History of weight loss with regain? Yes - Last Wt 12/12/23 : 111.5 kg (245 lb 13 oz) 5% weight loss = 234 lbs, 10% weight loss = 221 lbs WEIGHT GRAPH: Diet/Nutrition overview: Awake - -0600 coffee with flavored creamer 08/23-08/22 c B - SKIP or 0800 poptart or fig lynch bar or 2 scrambled eggs sometimes with toast or bagel with butter S - varied time - pretzels or apple or grapes or banana L - 12-1 pm bagged salad, no protein with honey mustard/Momo/ranch or FF burger, fries with diet pop or [employer] chicken cardenas ranch wrap or 6 sub S - sometimes pretzels or apple and sometimes cranberry juice D - 6-7 pm protein and potato/sweet potato/rice/noodles/corn/aguirre [place]/peas and sometimes low-carb veg. S - 7-8 pm ice cream or cookie or cake; 8-9 pm occasional popcorn Fluids: water, coffee with creamer, diet soda, regular soda occasionally Bedtime - [id number] Quality of diet: 24hr recall suggests somewhat unhealthy diet. Characterization of diet:Structured, unhealthy snacking, excessive cravings, and evening snacking. Reel Tender of impaired eating habits:lack of satiety, mindlessness , boredom, emotion, and stress Eating Disorder no Cravings: sugar, chocolate Sleep Duration: 6-8 hours. FRANCISCO NO ; CPAP NO Stress Stress:yes , Cause:Work, personal Obesity Related Comorbidities: Prior Weight Loss Surgery:No PAST MEDICAL HISTORY Diagnosis Date Depression Generalized anxiety disorder Gestational diabetes 04/15/2015 HSV-1 (herpes simplex virus 1) infection cold sores PAST SURGICAL HISTORY Procedure Laterality Date COLONOSCOPY SCREENING 10/2023 polyps MIRENA IUD 10/2023 FAMILY HISTORY Problem Relation Age of Onset Obesity Mother Obesity Brother Obesity Brother Heart Maternal Grandmother FL AND BYPASS SURG. Diabetes Maternal Grandmother Obesity Maternal Grandmother Hypertension Maternal Grandfather Breast Cancer Paternal Grandmother Diabetes Paternal Grandmother Alcohol/Drug Paternal Grandmother ALCOHOLISM Obesity Paternal Grandmother Breast Cancer Maternal Aunt Breast Cancer Paternal Aunt Social History Tobacco Use Smoking status: Former Passive exposure: Never Smokeless tobacco: Never Tobacco comments: Socially smoked in the past Vaping Use Vaping Use: Never used Substance Use Topics Alcohol use: Yes Comment: occasionally; not while Drug use: No AOM Medications: None Weight Promoting Medications: No: Previously on Cymbalta Diet/weight loss History: Past weight loss attempts? commercial diets, self-directed, and exercise program. Exercise/increased activity, Weight watchers, and Optivia meal plan IF with low-carb diet Exercise: Regular exercise: no Strength/resistance exercise:no Barriers to regular exercise? no Work-related activity:Sedentary. 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 Current Contraception: Mirena IUD Obesity ROS/ FHx GEN: Fatigue:yes CV: h/o palpitations/cardiac arrhythmia, Chest pain: no HTN: no PULM: Asthma:no GI: GERD:no ; Gallstones:no ; Fatty liver disease:no Pancreatitis: no MSK: Joint Pain:yes : Nephrolithiasis: no Symptoms of PCOS: no NEURO: Migraines/DIAZ: no; H/o seizures: no Glaucoma:no; Cataracts no Symptoms of or History of pseudotumor cerebri:no Family or personal History of MEN2 or Medullary thyroid cancer: no PE BP 122/84 Ht 168.3 cm (5' 6.26) Wt 109.3 kg (241 lb) LMP 11/14/2023 (Exact Date) BMI 38.59 kg/m Waist Circumference: 50 in Neck Circumference: 16.25 in GENERAL: Female in NAD. Central adiposity. SKIN: acanthosis nigricans no, Skin tags: yes Hirsutism: yes HEENT: PERRL, No supraclavicular adiposity. No dorsal adiposity. RESPIRATORY: CBTA CARDIAC: RRR ABDOMEN: Protuberant ; EXTREMITIES: peripheral edema: no Results: reviewed with the patient TSH (mIU/L) Date Value 11/05/2023 0.915 Impression: Yazmin Welch is a 48 year old Female with Class II obesity (Body mass index is 38.59 kg/m .) who has early adulthood obesity with several periods of weight loss followed by weight gain . The causes of her obesity are multifactorial, biological, psychological and social and environmental. Specific factors include a genetic component related to a strong family of obesity, exposure to weight gain promoting medication(s) , increased consumption of high calorie/process foods, suboptimal physical activity, onset of menopause, and post weight retention. She has no significant weight-related medical comorbidities which increase her cardiovascular mortality risk. There are additional metabolic obesity complications including dyslipidemia. Other medical conditions as above. Regarding her lifestyle, as above, she has a few behavioral contributors ; her physical activity is non-existent. Overall, it is clear that her quality of life is mildly compromised by her weight. It is likely a combination of weight loss therapies will be needed. She appears motivated today. ASSESSMENT/PLAN: 1. Elevated LDL cholesterol level - ICD9: 272.0, ICD10: E78.00 (primary diagnosis) - LIPID PANEL BASIC - CONSULT TO NUTRITION THERAPY 2. Vitamin D deficiency - ICD9: 268.9, ICD10: E55.9 - VITAMIN D 25 HYDROXY - CONSULT TO NUTRITION THERAPY 3. Depression, unspecified depression type - ICD9: 311, ICD10: F32.A - VITAMIN D 25 HYDROXY - BUPROPION HCL SR 150 MG TABLET,12 HR SUSTAINED-RELEASE 4. Generalized anxiety disorder - ICD9: 300.02, ICD10: F41.1 - BUPROPION HCL SR 150 MG TABLET,12 HR SUSTAINED-RELEASE 5. Malaise and fatigue - ICD9: 780.79, ICD10: R53.81, R53.83 - VITAMIN D 25 HYDROXY - COMPLETE BLOOD COUNT 6. Craving for particular food - ICD9: 783.9, ICD10: R63.8 - BUPROPION HCL SR 150 MG TABLET,12 HR SUSTAINED-RELEASE - CONSULT TO NUTRITION THERAPY 7. History of gestational diabetes - ICD9: V12.21, ICD10: Z86.32 - INSULIN ASSAY BLOOD - HEMOGLOBIN A1C - COMPREHENSIVE METABOLIC PANEL - CONSULT TO NUTRITION THERAPY 8. Screening cholesterol level - ICD9: V77.91, ICD10: Z13.220 - LIPID PANEL BASIC 9. Screening for deficiency anemia - ICD9: V78.1, ICD10: Z13.0 - COMPLETE BLOOD COUNT 10. Screening for diabetes mellitus - ICD9: V77.1, ICD10: Z13.1 - INSULIN ASSAY BLOOD - HEMOGLOBIN A1C - COMPREHENSIVE METABOLIC PANEL 11. Screening for metabolic disorder - ICD9: V77.99, ICD10: Z13.228 - COMPREHENSIVE METABOLIC PANEL 12. Encounter for vitamin deficiency screening - ICD9: V77.99, ICD10: Z13.21 - VITAMIN D 25 HYDROXY 13. Class 2 severe obesity with serious comorbidity and body mass index (BMI) of 39.0 to 39.9 in adult, unspecified obesity type (HCC) - ICD9: 278.01, V85.39, ICD10: E66.01, Z68.39 Plan: -- Based on the severity and resistance of the obesity/overweight with co-morbidities, I believe a combination of behavioral and pharmacological intervention is the best and most appropriate terminal superintendent therapeutic option. - VITAMIN D 25 HYDROXY - INSULIN ASSAY BLOOD - HEMOGLOBIN A1C - COMPLETE BLOOD COUNT - LIPID PANEL BASIC - COMPREHENSIVE METABOLIC PANEL - BUPROPION HCL SR 150 MG TABLET,12 HR SUSTAINED-RELEASE Bupropion: Discussed risks/benefits with the patient. Patient aware that this is an off-label use of the medication. No uncontrolled high BP, seizure disorders or drug/alcohol withdrawal, current or history of anorexia nervosa/bulimia or acute angle-closure glaucoma. Educated that bupropion can increase the risk of suicide in children, adolescents and young adults 24 years of age and younger, can increase blood pressure, cause decrease in cognition brain fog and has been associated with an increased risk of acute angle-closure glaucoma. Bupropion can also assist in smoking cessation. - CONSULT TO NUTRITION THERAPY [facility] WhyWeight - Whole food balanced protein low-carb nutrition -- We discussed several strategies to track food intake and increase mindfulness around eating while will decrease calorie intake. She was counseled on the following: Eating primarily whole foods. Limit carbs, especially processed carbs. Do not drink your calories 30 grams of protein for breakfast decreases your hunger during the day by up to 40 % Premier Protein or generic 30 gm protein 1 gm sugar Walk for 15 minutes immediately a meal. -- Encouraged the patient to improve her physical activity. Although cardiovascular exercise is most beneficial for weight loss initially, we discussed healthy muscle from a combination of resistance training and cardiovascular exercise is the best [place] [facility] plan. An overall goal of 150-200 minutes per week of exercise has been effective in weight loss and maintenance. -- Reviewed that monitoring weight daily and food intake can have a positive impact on overall weight loss and maintenance of weight loss. Activity tracking can be used to stay on target for exercise however should not be used to reward oneself She understands that there can be limitations of pharmacotherapy due to contraindications, side effects and cost. Patient was told to contact her insurance company to see what AOMs and supervised behavioral medical appointments are currently covered. Patient understands she will have more success when following a healthy lifestyle. We reviewed continued use of online tracking of daily weights, food journal and if desired physical activity. We reviewed that during management she is to report any concerning side effects of any pharmacotherapy she is placed on. She understands that she will need routine follow up in the office. Prior to any virtual visits in the future she will need to check her Blood pressure, weight, and pulse. Prescription instructions reviewed with patient as applicable. Potential red flag symptoms discussed with the patient. Reviewed appropriate action plan to take if red flag symptoms occur. Patient agreeable to treatment plan. -- follow-up visit for management of above interventions 6 weeks Karla Grant CNP Advanced Education from the Obesity Medicine Association I spent a total of 74 minutes on the date of the service which included preparing to see the patient, [id number] patient care, completing clinical documentation, obtaining and/or reviewing separately obtained history, performing a medically appropriate examination, counseling and educating the patient/family/caregiver, and ordering medications, tests, or procedures. documented in this encounter [facility] 01-23-2024 Note HNO ID: [id number] Author: KARLA GRANT APRN.CNP Service: ? Author Type: Nurse Practitioner Type: Progress Notes Filed: 01/23/2024 19:43 Note Text: Patient Summary: Yazmin Welch is a 48 year old female with obesity who presents for an initial evaluation of overweight/obesity to treat and prevent co-morbidities and is interested in open to all options. Motivation for seeking treatment for the disease of overweight/obesity : wants to feel more comfortable, decrease breast size Goal weight: 175-180 Lowest recall weight: 165 Highest non- recall weight: 241 Patient identified barriers to weight loss: gets frustrated quickly with weight loss Weight History: She reports a strong family history of obesity and early adulthood weight gain. She states her weight gain is related to the following factors, including weight retention, onset of menopause, exposure to a weight gain promoting medication, Cymbalta, reduced physical activity, and consumption of unhealthy foods. Difficulty losing weight? Yes History of weight loss with regain? Yes - Last Wt 12/12/23 : 111.5 kg (245 lb 13 oz) 5% weight loss = 234 lbs, 10% weight loss = 221 lbs WEIGHT GRAPH: Diet/Nutrition overview: Awake - -0600 coffee with flavored creamer 08/23-08/22 c B - SKIP or 0800 poptart or fig lynch bar or 2 scrambled eggs sometimes with toast or bagel with butter S - varied time - pretzels or apple or grapes or banana L - 12-1 pm bagged salad, no protein with honey mustard/Momo/ranch or FF burger, fries with diet pop or [employer]way chicken cardenas ranch wrap or 6 sub S - sometimes pretzels or apple and sometimes cranberry juice D - 6-7 pm protein and potato/sweet potato/rice/noodles/corn/aguirre [place]/peas and sometimes low-carb veg. S - 7-8 pm ice cream or cookie or cake; 8-9 pm occasional popcorn Fluids: water, coffee with creamer, diet soda, regular soda occasionally Bedtime - 7946-9811 Quality of diet: 24hr recall suggests somewhat unhealthy diet. Characterization of diet:Structured, unhealthy snacking, excessive cravings, and evening snacking. Reel Tender of impaired eating habits:lack of satiety, mindlessness , boredom, emotion, and stress Eating Disorder no Cravings: sugar, chocolate Sleep Duration: 6-8 hours. FRANCISCO NO ; CPAP NO Stress Stress:yes , Cause:Work, personal Obesity Related Comorbidities: Prior Weight Loss Surgery:No PAST MEDICAL HISTORY Diagnosis Date Depression Generalized anxiety disorder Gestational diabetes 04/15/2015 HSV-1 (herpes simplex virus 1) infection cold sores PAST SURGICAL HISTORY Procedure Laterality Date COLONOSCOPY SCREENING 10/2023 polyps MIRENA IUD 10/2023 FAMILY HISTORY Problem Relation Age of Onset Obesity Mother Obesity Brother Obesity Brother Heart Maternal Grandmother FL AND BYPASS SURG. Diabetes Maternal Grandmother Obesity Maternal Grandmother Hypertension Maternal Grandfather Breast Cancer Paternal Grandmother Diabetes Paternal Grandmother Alcohol/Drug Paternal Grandmother ALCOHOLISM Obesity Paternal Grandmother Breast Cancer Maternal Aunt Breast Cancer Paternal Aunt Social History Tobacco Use Smoking status: Former Passive exposure: Never Smokeless tobacco: Never Tobacco comments: Socially smoked in the past Vaping Use Vaping Use: Never used Substance Use Topics Alcohol use: Yes Comment: occasionally; not while Drug use: No AOM Medications: None Weight Promoting Medications: No: Previously on Cymbalta Diet/weight loss History: Past weight loss attempts? commercial diets, self-directed, and exercise program. Exercise/increased activity, Weight watchers, and Optivia meal plan IF with low-carb diet Exercise: Regular exercise: no Strength/resistance exercise:no Barriers to regular exercise? no Work-related activity:Sedentary. 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 Waist Circumference: 50 in Neck Circumference: 16.25 in GENERAL: Female in NAD. Central adiposity. SKIN: acanthosis nigricans no, Skin tags: yes Hirsutism: yes HEENT: PERRL, No supraclavicular adiposity. No dorsal adiposity. RESPIRATORY: CBTA CARDIAC: RRR ABDOMEN: Protu (more content not included)... [facility] 01-23-2024 Instructions Karla Grant APRN.[facility] - 01/23/2024 7:51 AM EDT Weight Management: You have taken the initiative to become a healthier version of yourself and to decrease the risks that come with the diagnosis of obesity or being overweight. We are happy to help you along this journey but know this is a lifetime commitment to yourself. Losing just 3-10 % of your body weight can decrease your risks of many other serious diseases like diabetes, heart disease, osteoarthritis, hypertension, cancer and so many others. During this time you will have triumphs, setbacks and plateaus- your body will fight against you but we are here to give you the tools and the resources to continue to reach your goals. We recommend during this time that you track your weight daily or at least five times per week as well as tracking your nutrition. You may track your activity but do not use hitting your fitness goals as a reward system as this can derail your success. We recommend weekly physical activity of 150-200 min/week-although physical exercise, this will be especially important for weight maintenance. Exercise can have many other benefits including improving insulin resistance, improving balance, bone health, improving mental health and cardiovascular health. Do not feel overwhelmed - we will discuss this more at your visits. Our time will be limited with each visit but we will try to touch on factors that are important to you and to your overall goals. We will try to set a goal at the end of each visit and then decide on what we want to accomplish with your upcoming visits. On your After Visit Summary (AVS), we will provide you with information that may be useful during this journey so please remember to read the information given. Check your AVS a few days after your appointment because we may have added more information specifically for you. Remember that if you are placed on medications, they are tools that can help you succeed but you must put in the work. Your nutrition will be the main factor. There are medications that work well for some and not for others- so it may take time to find the right combination for your body's needs. Please remember that factors such as other health co-morbidities one might have, as well as insurance coverage, will play a factor in determining which medications you can take. Most of the newer medications that are all the craze ,injectables, may not be covered or will only be covered if you fail months of oral medications or have Type 2 diabetes so please be patient with the process. It would be beneficial for you to determine what your insurance covers as far as Anti-Obesity Medications (AOMs), Nutritional Counseling, behavioral intervention and weight loss surgery. Please call your health insurance prior to your first appointment and write down coverage for each of those therapies. Most importantly, remember that ultimately our goal is to help you get to a healthier weight which will decrease your overall health risks. We will work together as a team and try to reach your personalized goals as well. Follow-up appointments Please arrive to follow-up visits a minimum of 15 minutes prior to your appointment. Follow-up weight management visits can be virtual. You will need to report a current blood pressure, heart rate (pulse) and weight at the beginning of each virtual appointment so you will need to have a reliable BP cuff, either wrist or upper arm. If you need to reschedule your appointment time or switch from an in-office visit to a virtual visit or vice versa, you need to call our office as we have designated appointment slots. This should not be done on [facility] as you will not be scheduled appropriately and will need to be rescheduled. We appreciate that you have entrusted us with your health and know that we are committed to this process with you. Sincerely, Pricilla Landa MD, OSMAN DUMONT & Karla Grant CNP Advanced Education from the Obesity Medicine Association Obesity Obesity is a disease that affects nearly one-third of the adult [place] population (approximately 60 million). The number of overweight and obese Americans has continued to increase since 1959, a trend that is not slowing down. Today, 64.5 percent of adult Americans (about 127 million) are categorized as being overweight or obese. Each year, obesity causes at least 300,000 excess deaths in the [place] and healthcare costs of [place] adults with obesity amount to approximately $100 billion. (AOA) Obesity is a complex, multi-factorial chronic disease involving: Environmental (social and cultural) The tendency toward obesity is a result of our environment: lack of physical activity along with high-calorie, low-cost foods. Home, work, school, and even the community can inhibit a healthy lifestyle. Genetic (Hereditary plays a large role in determining how susceptible people are to overweight and obesity). Genes also influence how the body olmstead calories for energy and stores fat. Physiologic, metabolic, behavioral (eating too many calories while not getting enough exercise) and psychological components. It is the second leading cause of preventable in the [place] Behavioral changes brought on by economic development, modernization and urbanization have been linked to the rise in global obesity. Calculating BMI Body Mass Index (BMI) is a measurement tool used to determine excess body weight. Overweight is defined as a BMI of 25 or more, obesity is 30 or more, and severe obesity is 40 or more. You can visit www.nhlbi.nih.gov to estimate your BMI. Obesity Related Health Conditions The morbidity and mortality risk from being overweight is proportional to its degree. Individuals with morbid obesity, therefore, have the highest risk for developing numerous illnesses that often reduce mobility and quality of life due to their excess weight. In particular, type 2 diabetes, gallbladder disease and osteoarthritis have been found to increase concurrently with higher BMI. Premature , a 20-year shorter life span, has also been found in individuals with morbid obesity. All of the systems that make the body function are affected by morbid obesity. Type 2 diabetes Gallbladder disease and gallstones Liver disease Osteoarthritis, a disease in which the joints deteriorate. This is possibly the result of excess weight on the joints. Gout, another disease affecting the joints Pulmonary (breathing) problems, including sleep apnea in which a person can stop breathing for a short time during sleep Reproductive problems in women, including menstrual irregularities and infertility Gastroesophageal reflux/heartburn Hypertension Heart Disease Depression Psychological disorders/social impairments Urinary Stress Incontinence Obesity is also linked to higher rates of certain types of cancer. Obese men are more likely than non-obese men to from cancer of the colon, rectum, or prostate. Obese women are more likely than non-obese women to from cancer of the gallbladder, breast, uterus, cervix, or ovaries https://my.[facility].org/[facility]/diseases/52201-opjsns-auxwlrwj tw-gdoaiaq-unhpluhdc - Eat primarily whole foods. Limit carbs, especially processed carbs. Eat - Meat, vegetables and fruits with skin on if possible, eggs, cheese. - Do not drink your calories - 30 grams of protein for your first meal of the day decreases your hunger during the day by up to 40 %. Options include: Premier Protein or generic 30 gm protein 1 gm sugar or 5 eggs or 2-3 eggs and some unbreaded meat and/or cheese. No fruit, vegetables, bread, grain, yogurt, Smoothies, etc. - Walk for 15 minutes immediately after meal. AM PM (early afternoon) Week 1 Bupropion SR 150 mg (1 tablet) None Week 2 Bupropion SR 150 mg (1 tablet) Bupropion SR 150 mg (1 tablet) Bupropion is a medicine that is used to treat depression and to prevent weight gain in people who are trying to quit smoking. -- avoid caffeinated beverages (i.e. coffee, tea, sports-drinks, etc) and be aware of the stimulant effects of inhalers, decongestants, etc. -- Take 1 tablet in the morning for 1-2 weeks, then increase to 1 tablet 2 times per day (in the morning and early afternoon). If you experience any adverse side effects you may decrease or stop at anytime. If you take it too late in the afternoon it may cause insomnia. Does Wellbutrin cause weight loss? It can. Bupropion (the generic form of Wellbutrin) was initially prescribed as an antidepressant. It is the only antidepressant associated with weight loss (Holden, 2019). Healthcare providers noticed that mostly pleasant side effect, and today bupropion is sometimes prescribed as part of a medication for weight loss (naltrexone/bupropion, brand name Contrave), as well as a stop-smoking aid (brand name Zyban). As far as the evidence that bupropion by itself causes weight loss: A 2016 study that analyzed the long-term weight loss effect of various antidepressant medications found that non-smokers who took bupropion lost 7.1 pounds over two years. (This effect was not seen in smokers). Users of the other antidepressants in the study gained weight (Arterburn, 2016). Bupropion seems to be effective for weight-loss maintenance as well. A 2012 study found that obese adults who took bupropion SR (standard release) in 300mg or 400mg doses lost 7.2% and 10% of their body weight, respectively, over 24 weeks and maintained that weight loss at 48 weeks (Ez, 2012). And a 2019 review of 27 studies on antidepressants and weight gain found that antidepressant use increases body weight by an average of 5%--except bupropion, which is associated with weight loss (Holden, 2019). https://ro.co/health-guide/wellbut dek-ztx-eatnfi-loss/ Bupropion: Patient drug information Access [employer] for additional drug information, tools, and databases. Copyright [employer]. All rights reserved. Contributor Disclosures (For additional information see Bupropion: Drug information and see Bupropion: Pediatric drug information) You must carefully read the Consumer Information Use and Disclaimer below in order to understand and correctly use this information. Brand Names: US Aplenzin; Forfivo XL; Wellbutrin SR; Wellbutrin XL; Zyban [DSC] Brand Names: Sailaja MYLAN-BuPROPion XL; ODAN Bupropion SR; PMS-BuPROPion SR [DSC]; TARO-Bupropion XL; TEVA-Bupropion XL; Wellbutrin SR; Wellbutrin XL; Zyban Warning Drugs like this one have raised the chance of suicidal thoughts or actions in children and young adults. The risk may be greater in people who have had these thoughts or actions in the past. All people who take this drug need to be watched closely. Call the doctor right away if signs like low mood (depression), nervousness, restlessness, grouchiness, panic attacks, or changes in mood or actions are new or worse. Call the doctor right away if any thoughts or actions of suicide occur. What is this drug used for? It is used to treat low mood (depression). It is used to prevent seasonal affective disorder (SAD). It is used to help you stop smoking. It may be given to you for other reasons. Talk with the doctor. What do I need to tell my doctor BEFORE I take this drug? If you are allergic to this drug; any part of this drug; or any other drugs, foods, or substances. Tell your doctor about the allergy and what signs you had. If you have ever had seizures. If you drink a lot of alcohol and you stop drinking all of a sudden. If you use certain other drugs like drugs for seizures or anxiety and you stop using them all of a sudden. If you have ever had an eating problem like anorexia or bulimia. If you have any of these health problems: Kidney disease or liver disease. If you have taken certain drugs for depression or Parkinson's disease in the last 14 days. This includes isocarboxazid, phenelzine, tranylcypromine, selegiline, or rasagiline. Very high blood pressure may happen. If you are taking any of these drugs: Linezolid or methylene blue. If you are taking another drug that has the same drug in it. This is not a list of all drugs or health problems that interact with this drug. Tell your doctor and pharmacist about all of your drugs (prescription or OTC, natural products, vitamins) and health problems. You must check to make sure that it is safe for you to take this drug with all of your drugs and health problems. Do not start, stop, or change the dose of any drug without checking with your doctor. What are some things I need to know or do while I take this drug? For all patients taking this drug: Tell all of your health care providers that you take this drug. This includes your doctors, nurses, pharmacists, and dentists. Avoid driving and doing other tasks or actions that call for you to be alert or have clear eyesight until you see how this drug affects you. This drug may affect certain lab tests. Tell all of your health care providers and lab workers that you take this drug. Do not stop taking this drug all of a sudden without calling your doctor. You may have a greater risk of side effects. If you need to stop this drug, you will want to slowly stop it as ordered by your doctor. High blood pressure has happened with this drug. Have your blood pressure checked as you have been told by your doctor. This drug may raise the chance of seizures. The risk may be higher in people who take higher doses, have certain health problems, or take certain other drugs. People who suddenly stop drinking a lot of alcohol or suddenly stop taking certain drugs (like drugs used for anxiety, sleep, or seizures) may also have a higher risk. Talk to your doctor to see if you have a greater chance of seizures. Avoid drinking alcohol while taking this drug. Talk with your doctor before you use marijuana, other forms of cannabis, or prescription or OTC drugs that may slow your actions. It may take several weeks to see the full effects. This drug is not approved for use in children. Talk with the doctor. If you are 65 or older, use this drug with care. You could have more side effects. Tell your doctor if you are , plan on getting , or are breast-feeding. You will need to talk about the benefits and risks to you and the baby. If you smoke: Not all products are approved for use to help stop smoking. Talk with the doctor to make sure that you have the right product. New or worse mental, mood, or behavior problems have happened when bupropion has been used to stop smoking. These problems include thoughts of suicide or murder, depression, forceful actions, fury, anxiety, and anger. These problems have happened in people with and without a history of mental or mood problems. Talk with the doctor. What are some side effects that I need to call my doctor about right away? WARNING/CAUTION: Even though it may be rare, some people may have very bad and sometimes deadly side effects when taking a drug. Tell your doctor or get medical help right away if you have any of the following signs or symptoms that may be related to a very bad side effect: Signs of an allergic reaction, like rash; hives; itching; red, swollen, blistered, or peeling skin with or without fever; wheezing; tightness in the chest or throat; trouble breathing, swallowing, or talking; unusual hoarseness; or swelling of the mouth, face, lips, tongue, or throat. Signs of high blood pressure like very bad headache or dizziness, passing out, or change in eyesight. Feeling confused, not able to focus, or change in behavior. Hallucinations (seeing or hearing things that are not there). If seizures are new or worse after starting this drug. Chest pain or pressure, a fast heartbeat, or an abnormal heartbeat. Swelling. Shortness of breath. Change in hearing. Ringing in ears. Passing urine more often. Swollen gland. Trouble moving around. Some people may have a higher chance of eye problems with this drug. Your doctor may want you to have an eye exam to see if you have a higher chance of these eye problems. Call your doctor right away if you have eye pain, change in eyesight, or swelling or redness in or around the eye. A severe skin reaction (Gleason-Chris syndrome/toxic epidermal necrolysis) may happen. It can cause severe health problems that may not go away, and sometimes . Get medical help right away if you have signs like red, swollen, blistered, or peeling skin (with or without fever); red or irritated eyes; or sores in your mouth, throat, nose, or eyes. What are some other side effects of this drug? All drugs may cause side effects. However, many people have no side effects or only have minor side effects. Call your doctor or get medical help if any of these side effects or any other side effects bother you or do not go away: All products: Dizziness or headache. Constipation, diarrhea, stomach pain, upset stomach, throwing up, or feeling less hungry. Shakiness. Feeling nervous and excitable. Strange or odd dreams. Gas. Dry mouth. Trouble sleeping. Muscle or joint pain. Nose or throat irritation. Sweating a lot. A change in weight without trying. Extended-release tablets: For some brands, you may see the tablet shell in your stool. For these brands, this is normal and not a cause for concern. If you have questions, talk with your doctor. These are not all of the side effects that may occur. If you have questions about side effects, call your doctor. Call your doctor for medical advice about side effects. You may report side effects to your national health agency. How is this drug best taken? Use this drug as ordered by your doctor. Read all information given to you. Follow all instructions closely. For all uses of this drug: Do not take this drug more often than you are told. This may raise the risk of seizures. Be sure you know how far apart to take your doses. Take in the morning if taking once a day. Take with or without food. If you are not able to sleep, do not take this drug too close to bedtime. Talk with your doctor. Swallow whole. Do not chew, break, or crush. Keep taking this drug as you have been told by your doctor or other health care provider, even if you feel well. If you have trouble swallowing, talk with your doctor. For stopping smoking: You may take this drug for 1 week before you stop smoking. Nicotine products and counseling may be used at the same time for best results. If you have not been able to quit smoking after taking this drug for 12 weeks, talk with your doctor. You may have signs of nicotine withdrawal when you try to quit smoking even when using drugs like this one to help you quit smoking. There are many signs of nicotine withdrawal. Rarely depression and suicidal thoughts have happened in people trying to quit smoking. Talk with your doctor. What do I do if I miss a dose? Skip the missed dose and go back to your normal time. Do not take 2 doses at the same time or extra doses. How do I store and/or throw out this drug? Store at room temperature protected from light. Store in a dry place. Do not store in a bathroom. Keep all drugs in a safe place. Keep all drugs out of the reach of children and pets. Throw away unused or drugs. Do not flush down a toilet or pour down a drain unless you are told to do so. Check with your pharmacist if you have questions about the best way to throw out drugs. There may be drug take-back programs in your area. General drug facts If your symptoms or health problems do not get better or if they become worse, call your doctor. Do not share your drugs with others and do not take anyone else's drugs. Some drugs may have another patient information leaflet. If you have any questions about this drug, please talk with your doctor, nurse, pharmacist, or other health care provider. If you think there has been an overdose, call your poison control center or get medical care right away. Be ready to tell or show what was taken, how much, and when it happened. Last Reviewed [id number] Consumer Information Use and Disclaimer This generalized information is a limited summary of diagnosis, treatment, and/or medication information. It is not meant to be comprehensive and should be used as a tool to help the user understand and/or assess potential diagnostic and treatment options. It does NOT include all information about conditions, treatments, medications, side effects, or risks that may apply to a specific patient. It is not intended to be medical advice or a substitute for the medical advice, diagnosis, or treatment of a health care provider based on the health care provider's examination and assessment of a patient's specific and unique circumstances. Patients must speak with a health care provider for complete information about their health, medical questions, and treatment options, including any risks or benefits regarding use of medications. This information does not endorse any treatments or medications as safe, effective, or approved for treating a specific patient. [employer] and its affiliates disclaim any warranty or liability relating to this information or the use thereof. The use of this information is governed by the Terms of Use, available at https://www.[employer].com/en/k now/wooqshdz-jcnhaxcugpstk-fiyzm. 2021 [employer] and its affiliates and/or licensors. All rights reserved. documented in this encounter [facility] 12-12-2023 Note HNO ID: [id number] Author: ANNE-MARIE MURPHY APRN.LILIANA Service: ? Author Type: Nurse Practitioner Type: Progress Notes Filed: 12/12/2023 14:34 Note Text: This note was created using NoteWriter. Subjective Yazmin Welch is a 47 year old female. 47 year old female with no PMH presents for ear complaints. Acute onset 12/07/23 Right ear lobe Endorses Bubble like behind piercing. Warm compresses Endorses last night it popped +blood drainage and purulence Has been spraying saline spray Bactine spray Denies fever or chills. Of note, She underwent the piercing 2 to 3 months ago The history is provided by the patient. No site interpreter was used. Ear Problem There is pain in the right ear. This is a new problem. Episode onset: 5 days ago. The problem occurs constantly. The problem has been unchanged. There has been no fever. The pain is at a severity of 6/10. The pain is moderate. Pertinent negatives include no abdominal pain, coughing, diarrhea, ear discharge, headaches, hearing loss, neck pain, rash, rhinorrhea, sore throat or vomiting. Treatments tried: warm compresses/spray. The treatment provided no relief. There is no history of a chronic ear infection, hearing loss or a tympanostomy tube. 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 MEDICATIONS norethindrone (AYGESTIN) 5 mg tablet Take 1 tablet TID until bleeding stops, the BID x 3 days, the daily x 3 days. lysine 1,000 mg tab Magnesium 250 mg tab Red Yeast Rice Extract 600 mg cap [id number]-wptaxwc-zdhwyki 5,000 mcg-100 mg-5 mg cap levonorgestrel (MIRENA) 21 mcg/24 hours (8 yrs) 52 mg IUD 1 Each by INTRAUTERINE route as directed. fluticasone (FLONASE ALLERGY RELIEF) 50 mcg/actuation nasal spray Use 1 [place] in each nostril once daily. CETIRIZINE HCL (ZYRTEC ORAL) Take by mouth. ERGOCALCIFEROL, VITAMIN D2, (VITAMIN D ORAL) Take 1 tablet by mouth once daily. sulfamethoxazole-trimethoprim (BACTRIM DS) 800-160 mg per tablet Take 1 tablet by mouth two times a day for 7 days. FAMILY HISTORY Problem Relation Age of Onset Heart Maternal Grandmother [place] AND BYPASS SURG. Diabetes Maternal Grandmother Hypertension Maternal Grandfather Breast Cancer Paternal Grandmother Diabetes Paternal Grandmother Alcohol/Drug Paternal Grandmother ALCOHOLISM Breast Cancer Paternal Aunt Breast Cancer Maternal Aunt Social History Tobacco Use Smoking status: Former Passive exposure: Never Smokeless tobacco: Never Tobacco comments: Socially smoked in the past Vaping Use Vaping Use: Never used Substance Use Topics Alcohol use: Yes Comment: occasionally; not while Drug use: No Review of Systems Constitutional: Negative for chills, diaphoresis, fatigue and fever. HENT: Positive for ear pain. Negative for ear discharge, hearing loss, rhinorrhea and sore throat. Respiratory: Negative for cough. Cardiovascular: Negative for chest pain, palpitations and leg swelling. Gastrointestinal: Negative for abdominal pain, diarrhea and vomiting. Genitourinary: Negative for pelvic pain. Musculoskeletal: Negative for arthralgias, back pain, gait problem and neck pain. Skin: Positive for wound. Negative for color change and rash. Allergic/Immunologic: Negative for environmental allergies, food allergies and immunocompromised state. Neurological: Negative for dizziness, facial asymmetry and headaches. Hematological: Negative for adenopathy. Does not bruise/bleed easily. Psychiatric/Behavioral: Negative for agitation and behavioral problems. Objective BP 126/66 Pulse 96 Temp 36.9 ?C (98.4 ?F) Resp 16 Wt 111.5 kg (245 lb 13 oz) LMP 11/14/2023 (Exact Date) SpO2 99% BMI 39.68 kg/m? Physical Exam Vitals and nursing note reviewed. Constitutional: General: She is not in acute distress. Appearance: Normal appearance. She is normal weight. She is not ill-appearing, toxic-appearing or diaphoretic. HENT: Head: Normocephalic and atraumatic. Right Ear: Ear canal normal. Left Ear: Ear canal and external ear normal. Ears: Comments: Right guevara of helix with piercing noted. +redness +erythema +TTP No abscess No streaking Nose: Nose normal. No congestion or rhinorrhea. Mouth/Throat: Mouth: Mucous membranes are moist. Pharynx: No oropharyngeal exudate or posterior oropharyngeal erythema. Eyes: General: Right eye: No discharge. Left eye: No discharge. Extraocular Movements: Extraocular movements intact. Conjunctiva/sclera: Conjunctivae normal. Pupils: Pupils are equal, round, and reactive to light. Cardiovascular: Rate and Rhythm: Normal rate and regular rhythm. Pulses: Normal pulses. Heart sounds: Norm (more content not included)... [facility] 12-12-2023 History of Present illness Narrative This note was created using Gainsightriter. Subjective Yazmin Welch is a 47 year old female. 47 year old female with no PMH presents for ear complaints. Acute onset 12/07/23 Right ear lobe Endorses Bubble like behind piercing. Warm compresses Endorses last night it popped +blood drainage and purulence Has been spraying saline spray Bactine spray Denies fever or chills. Of note, She underwent the piercing 2 to 3 months ago The history is provided by the patient. No site interpreter was used. Ear Problem There is pain in the right ear. This is a new problem. Episode onset: 5 days ago. The problem occurs constantly. The problem has been unchanged. There has been no fever. The pain is at a severity of 6/10. The pain is moderate. Pertinent negatives include no abdominal pain, coughing, diarrhea, ear discharge, headaches, hearing loss, neck pain, rash, rhinorrhea, sore throat or vomiting. Treatments tried: warm compresses/spray. The treatment provided no relief. There is no history of a chronic ear infection, hearing loss or a tympanostomy tube. 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 MEDICATIONS norethindrone (AYGESTIN) 5 mg tablet Take 1 tablet TID until bleeding stops, the BID x 3 days, the daily x 3 days. lysine 1,000 mg tab Magnesium 250 mg tab Red Yeast Rice Extract 600 mg cap hpcgvp-vkfipop-mtunpme 5,000 mcg-100 mg-5 mg cap levonorgestrel (MIRENA) 21 mcg/24 hours (8 yrs) 52 mg IUD 1 Each by INTRAUTERINE route as directed. fluticasone (FLONASE ALLERGY RELIEF) 50 mcg/actuation nasal spray Use 1 [place] in each nostril once daily. CETIRIZINE HCL (ZYRTEC ORAL) Take by mouth. ERGOCALCIFEROL, VITAMIN D2, (VITAMIN D ORAL) Take 1 tablet by mouth once daily. sulfamethoxazole-trimethoprim (BACTRIM DS) 800-160 mg per tablet Take 1 tablet by mouth two times a day for 7 days. FAMILY HISTORY Problem Relation Age of Onset Heart Maternal Grandmother [place] AND BYPASS SURG. Diabetes Maternal Grandmother Hypertension Maternal Grandfather Breast Cancer Paternal Grandmother Diabetes Paternal Grandmother Alcohol/Drug Paternal Grandmother ALCOHOLISM Breast Cancer Paternal Aunt Breast Cancer Maternal Aunt Social History Tobacco Use Smoking status: Former Passive exposure: Never Smokeless tobacco: Never Tobacco comments: Socially smoked in the past Vaping Use Vaping Use: Never used Substance Use Topics Alcohol use: Yes Comment: occasionally; not while Drug use: No Review of Systems Constitutional: Negative for chills, diaphoresis, fatigue and fever. HENT: Positive for ear pain. Negative for ear discharge, hearing loss, rhinorrhea and sore throat. Respiratory: Negative for cough. Cardiovascular: Negative for chest pain, palpitations and leg swelling. Gastrointestinal: Negative for abdominal pain, diarrhea and vomiting. Genitourinary: Negative for pelvic pain. Musculoskeletal: Negative for arthralgias, back pain, gait problem and neck pain. Skin: Positive for wound. Negative for color change and rash. Allergic/Immunologic: Negative for environmental allergies, food allergies and immunocompromised state. Neurological: Negative for dizziness, facial asymmetry and headaches. Hematological: Negative for adenopathy. Does not bruise/bleed easily. Psychiatric/Behavioral: Negative for agitation and behavioral problems. Objective BP 126/66 Pulse 96 Temp 36.9 C (98.4 F) Resp 16 Wt 111.5 kg (245 lb 13 oz) LMP 11/14/2023 (Exact Date) SpO2 99% BMI 39.68 kg/m Physical Exam Vitals and nursing note reviewed. Constitutional: General: She is not in acute distress. Appearance: Normal appearance. She is normal weight. She is not ill-appearing, toxic-appearing or diaphoretic. HENT: Head: Normocephalic and atraumatic. Right Ear: Ear canal normal. Left Ear: Ear canal and external ear normal. Ears: Comments: Right guevara of helix with piercing noted. +redness +erythema +TTP No abscess No streaking Nose: Nose normal. No congestion or rhinorrhea. Mouth/Throat: Mouth: Mucous membranes are moist. Pharynx: No oropharyngeal exudate or posterior oropharyngeal erythema. Eyes: General: Right eye: No discharge. Left eye: No discharge. Extraocular Movements: Extraocular movements intact. Conjunctiva/sclera: Conjunctivae normal. Pupils: Pupils are equal, round, and reactive to light. Cardiovascular: Rate and Rhythm: Normal rate and regular rhythm. Pulses: Normal pulses. Heart sounds: Normal heart sounds. No murmur heard. No friction rub. Pulmonary: Effort: Pulmonary effort is normal. No respiratory distress. Breath sounds: Normal breath sounds. No stridor. No wheezing, rhonchi or rales. Chest: Chest wall: No tenderness. Abdominal: General: Abdomen is flat. There is no distension. Palpations: Abdomen is soft. There is no mass. Tenderness: There is no abdominal tenderness. There is no right CVA tenderness, left CVA tenderness, guarding or rebound. Hernia: No hernia is present. Musculoskeletal: General: No swelling, tenderness, deformity or signs of injury. Normal range of motion. Cervical back: Normal range of motion and neck supple. No rigidity. Right lower leg: No edema. Left lower leg: No edema. Lymphadenopathy: Cervical: No cervical adenopathy. Skin: General: Skin is warm and dry. Capillary Refill: Capillary refill takes less than 2 seconds. Coloration: Skin is not jaundiced or pale. Findings: No bruising, erythema, lesion or rash. Neurological: General: No focal deficit present. Mental Status: She is alert and oriented to person, place, and time. Cranial Nerves: No cranial nerve deficit. Sensory: No sensory deficit. Motor: No weakness. Coordination: Coordination normal. Gait: Gait normal. Psychiatric: Mood and Affect: Mood normal. Behavior: Behavior normal. Thought Content: Thought content normal. Judgment: Judgment normal. Assessment and Plan ASSESSMENT/PLAN: 1. Infection of right earlobe - ICD9: 686.9, ICD10: H60.391 X 5 days No red flags Area is concerning for infection given recent piercing. Will cover with Bactrim Patient was encouraged to remove piercing, reluctant. Discussed red flags Follow up with PCP for continued sx. Anne-Marie Murphy APRN.LILIANA documented in this encounter [facility] 12-06-2023 Miscellaneous Notes Patient scheduled with Dr. Mccollum 12/26/2023 Pt calling back. States she was told that there was a Flat polyp that needed to be removed. Advised that I would have Dr. Lopez review and call her back. Marilu Alves MA Left detailed message on identified voicemail as well as notified of [employer] message being sent. Pt to call back with any questions. Recall letter prompted, HM updated. Marilu Alves MA She had several tubular adenomas removed. You will need a repeat colonoscopy in 5 years. She does not need to follow-up with me. Patient called and stated she had a colonoscopy completed 11/22/2023 and is wanting to know if she is to come back in for a follow up? Please review and advise Thea Palomo Line Haul Owner Operator documented in this encounter [facility] 11-22-2023 Miscellaneous Notes The patient received a copy of Colonoscopy discharge instructions that contain information for how to contact the physician who performed the procedure and when to seek medical care. documented in this encounter [facility] 11-22-2023 History and physical note Yazmin is a 47 year old who presents for an annual gynecologic exam without complaints. Menses: cycles every 28 days and 4 days of flow. Contraception: none HPV vaccine: No Last Pap: 05/14/2019 normal HPV: 05/12/2019 negative History of abnormal pap: No Last mammogram: 2022 normal Sexually active: Yes Hot flashes: Yes Night sweats: No OB History T3 L3 SAB0 IAB0 Ectopic0 Multiple0 Live Births3 Compensation Consultant History LMP: 11/05/2023 (Exact Date), Having periods Age at Menarche: Age at First : Age at Menopause: Compensation Consultant History Comments: Sexual Activity: Not Currently; No partner data on record Contraception: No contraception data on record PAST MEDICAL HISTORY PAST MEDICAL HISTORY Diagnosis Date Depression Generalized anxiety disorder Gestational diabetes 04/15/2015 Gestational diabetes 04/15/2015 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 Diabetes Maternal Grandmother Hypertension Maternal Grandfather Breast Cancer Paternal Grandmother Diabetes Paternal Grandmother Alcohol/Drug Paternal Grandmother ALCOHOLISM Breast Cancer Paternal Aunt Breast Cancer Maternal Aunt SOCIAL HISTORY SOCIAL HISTORY Social History Tobacco Use Smoking status: Former Passive exposure: Never Smokeless tobacco: Never Tobacco comments: Socially smoked in the past Vaping Use Vaping Use: Never used Substance Use Topics Alcohol use: Yes Comment: occasionally; not while Drug use: No REVIEW OF SYSTEMS Abdomen: No abdominal pain, nausea, vomiting, diarrhea, or constipation. No bloating, early satiety, indigestion, or increased flatulence. Bladder: No dysuria, gross hematuria, urinary frequency, urinary urgency, or incontinence. Breast: No breast lumps, nipple d/c, overlying skin changes, redness or skin retraction. Allergies and current medication updated:Yes EXAM: BP 120/72 Ht 5' 6 (1.68m) Wt 236 lb (107.0kg) LMP 11/05/2023 BMI 38.11 kg/(m^2). GENERAL: pleasant, female in no apparent distress HEENT: Normocephalic, atraumatic, mucus membranes moist, and no lesions NECK: Supple, full range of motion, no adenopathy, and thyroid normal DERMATOLOGY: Normal, without lesions, non-icteric, and non-hirsute BREAST: soft, non-tender, symmetric, no dominant mass, normal nipple-areolar complex, no lymphadenopathy, and no nipple discharge CHEST: Normal inspiratory effort ABDOMEN: soft, non-tender, and no masses PELVIC: external genitalia normal, normal Bartholin's glands, urethra, [place]'s glands, no vulvar lesions, no cervical lesions, physiologic discharge present, normal appearing perineal body and perianal region BIMANUAL: uterus normal size, shape and consistency, no adnexal masses, and non-tender RECTOVAGINAL: deferred. NEURO: alert and oriented x3,exam grossly non-focal EXTREMITIES: normal ASSESSMENT/PLAN: 1. Encounter for gynecological examination (general) (routine) without abnormal findings - ICD9: V72.31, ICD10: Z01.419 (primary diagnosis) - Completed pelvic and breast exam - Encouraged monthly BSE - Follow up for annual exam in one year. - PAP TEST 2. Screening for cervical cancer - ICD9: V76.2, ICD10: Z12.4 - PAP TEST 3. Encounter for screening for human papillomavirus (HPV) - ICD9: V73.81, ICD10: Z11.51 - PAP TEST 4. Encounter for screening mammogram for breast cancer - ICD9: V76.12, ICD10: Z12.31 - DINORAH SCREENING 5. Special screening for malignant neoplasms, colon - ICD9: V76.51, ICD10: Z12.11 - COLONOSCOPY SCREENING 6. Perimenopausal symptoms - ICD9: 627.2, ICD10: N95.1 - TSH BLD - FSH BLD - ESTRADIOL-17B BLD 7. Screening for STDs (sexually transmitted diseases) - ICD9: V74.5, ICD10: Z11.3 - GONORRHEA/CHLAMYDIA NAAT 8. Encounter for insertion of intrauterine contraceptive device (IUD) - ICD9: V25.11, ICD10: Z30.430 - INSERT INTRAUTERINE DEVICE Will notify patient of test results. Janna Delgado APRN.CLINICAL NURSING INSTRUCTOR UPDATED HISTORY AND PHYSICAL EXAMINATION SERVICE DATE: 11/22/2023 SERVICE TIME: 11:29 AM PHYSICAL EXAM MUST BE COMPLETED ON ADMISSION The History and Physical (completed in the past 30 days) has been reviewed and the patient has been examined. The contents accurately reflect the patient's condition with the following additions or revisions since the H&P was completed. Examination indicates no changes. This H&P can be found in the attached. SIGNATURE: Reed Lopez III, MD PATIENT NAME: Yazmin Welch DATE: November 22, 2023 TIME: 11:29 AM documented in this encounter [facility] 11-22-2023 Note HNO ID: [id number] Author: SALONI LIGHT RN Service: ? Author Type: Registered Nurse Type: Nursing Progress Note Filed: 11/22/2023 12:24 Note Text: Abdomen soft non-distended. Will continue to monitor. [facility] 11-22-2023 Nurse Note Abdomen soft non-distended. Will continue to monitor. documented in this encounter [facility] 11-16-2023 Note HNO ID: [id number] Author: JANNA DELGADO APRN.CNP Service: ? Author Type: Nurse Practitioner Type: Progress Notes Filed: 11/16/2023 09:35 Note Text: International Account Manager offered: Patient declines. Yazmin presents today for IUD insertion for contraception, menstrual dysfunction. Patient's last menstrual period was 11/07/2023 (exact date). GC/chlamydia: Not done: no risk factors and/or patient declines screening test: n/a Side effects including irregular bleeding were discussed with the patient. The patient understands that it should be removed in 8 years or sooner if the patient desires a . IUD source: office provided IUD lot #: [id number] Exp date: 09/19/[address] [facility]: [id number] UNIVERSAL PROTOCOL / SAFETY CHECKLIST Procedure to be Performed: Mirena insertion Sign In: A Moment of CARE was completed. Personnel directly involved with the procedure wore the appropriate PPE (Personal Protective Equipment). Patient/Surrogate Stated/Verified: PATIENT VERIFIED(optional for EMERGENT procedures): Patient name, Date of , Relevant allergies, and The intended procedure Time Out Communication: Intended patient and procedure match the source documents. Consent documented and matches the intended procedure. Sign Out: SIGN OUT (optional for EMERGENT procedures): No specimen collected. All instruments, equipment, possible retained foreign bodies accounted for. Post-procedure follow-up management communicated and Plan of Care Visit completed when applicable. The cervix was prepped with betadine. The uterus sounded to 10 cm and the uterus is Anteverted.. Using sterile technique, the Mirena IUD was inserted without difficulty and the string was cut to 2cm from the external os of the cervix. Patient tolerated procedure well. PLAN: Patient was advised to observe for signs and symptoms of infection including but not limited to fever, malodorous vaginal discharge and/or pain. The patient was told to check the string monthly for accurate placement. Bleeding expectations were reviewed. Follow up for next annual exam or sooner as needed. Janna Delgado APRN.CLINICAL NURSING INSTRUCTOR [facility] 11-09-2023 Miscellaneous Notes November 12, 2023 PID: [id number] Yazmin Martin Yuri [address] [place] [address] Dear Ivelisse Yuri, We are pleased to inform you that the results of your recent breast imaging exam on 11/09/2023 are normal. Early detection of cancer is very important. We also understand recommendations regarding breast cancer screening are controversial. Please discuss with your primary care provider which strategy is best for you and whether a mammogram is right for you. Your imaging studies and report will be kept on file at [facility] as part of your permanent medical record and are available for your continuing care. Thank you for allowing us to help in meeting your health care needs. Sincerely, Dr. Dorsey Interpreting Radiologist [facility] (Normal over 40) documented in this encounter [facility] 11-09-2023 History of Present illness Narrative Radiology Service Progress Note PATIENT NAME: Yazmin Welch DATE OF SERVICE: November 09, 2023 TIME: 8:56 AM PATIENT IDENTITY VERIFICATION COMPLETED USING TWO (2) IDENTIFIERS: Name and Date of confirmed by patient verbally. FALL SCREENING: Has the patient had 2 falls in the last year or 1 fall with injury or currently using an Ambulatory Assistive Device (Walker, Cane, Wheelchair, Crutches, etc.)? No PATIENT GENDER DATA: Female. status: : No status: NO. PATIENT RELEVANT IMPLANT DATA REVIEWED: Not Applicable PATIENT PRESENTS WITH AN IMPLANTABLE OR ATTACHED AEROSPACE ASSEMBLER: No RADIOLOGY DEPARTMENT: Mammography PERIPHERAL IV DATA: Not applicable SIGNED BY: Shanye Payan November 09, 2023 8:56 AM Radiology Service Progress Note PATIENT NAME: Yazmin Welch DATE OF SERVICE: November 09, 2023 TIME: 9:01 AM PATIENT IDENTITY VERIFICATION COMPLETED USING TWO (2) IDENTIFIERS: Name and Date of confirmed by patient verbally. FALL SCREENING: Has the patient had 2 falls in the last year or 1 fall with injury or currently using an Ambulatory Assistive Device (Walker, Cane, Wheelchair, Crutches, etc.)? No PATIENT GENDER DATA: Female. status: : No status: NO. PATIENT RELEVANT IMPLANT DATA REVIEWED: Not Applicable PATIENT PRESENTS WITH AN IMPLANTABLE OR ATTACHED AEROSPACE ASSEMBLER: No RADIOLOGY DEPARTMENT: Mammography PERIPHERAL IV DATA: Not applicable SIGNED BY: Shayne Payan November 09, 2023 9:01 AM documented in this encounter [facility] 11-09-2023 Note HNO ID: [id number] Author: MEHDI CERVANTES Mammo Tech Service: ? Author Type: Electroplater Type: Progress Notes Filed: 11/09/2023 08:56 Note Text: Radiology Service Progress Note PATIENT NAME: Yazmin Welch DATE OF SERVICE: November 09, 2023 TIME: 8:56 AM PATIENT IDENTITY VERIFICATION COMPLETED USING TWO (2) IDENTIFIERS: Name and Date of confirmed by patient verbally. FALL SCREENING: Has the patient had 2 falls in the last year or 1 fall with injury or currently using an Ambulatory Assistive Device (Walker, Cane, Wheelchair, Crutches, etc.)? No PATIENT GENDER DATA: Female. status: : No status: NO. PATIENT RELEVANT IMPLANT DATA REVIEWED: Not Applicable PATIENT PRESENTS WITH AN IMPLANTABLE OR ATTACHED AEROSPACE ASSEMBLER: No RADIOLOGY DEPARTMENT: Mammography PERIPHERAL IV DATA: Not applicable SIGNED BY: Gabriella PayanCloudnexa Geeta November 09, 2023 8:56 AM [facility] 11-09-2023 Note HNO ID: [id number] Author: MEHDI CERVANTES Mammo Tech Service: ? Author Type: Electroplater Type: Progress Notes Filed: 11/09/2023 09:01 Note Text: Radiology Service Progress Note PATIENT NAME: Yazmin Welch DATE OF SERVICE: November 09, 2023 TIME: 9:01 AM PATIENT IDENTITY VERIFICATION COMPLETED USING TWO (2) IDENTIFIERS: Name and Date of confirmed by patient verbally. FALL SCREENING: Has the patient had 2 falls in the last year or 1 fall with injury or currently using an Ambulatory Assistive Device (Walker, Cane, Wheelchair, Crutches, etc.)? No PATIENT GENDER DATA: Female. status: : No status: NO. PATIENT RELEVANT IMPLANT DATA REVIEWED: Not Applicable PATIENT PRESENTS WITH AN IMPLANTABLE OR ATTACHED AEROSPACE ASSEMBLER: No RADIOLOGY DEPARTMENT: Mammography PERIPHERAL IV DATA: Not applicable SIGNED BY: Gabriella PayanCloudnexa Geeta November 09, 2023 9:01 AM [facility] 11-05-2023 Note HNO ID: [id number] Author: JANNA DELGADO APRN.CNP Service: ? Author Type: Nurse Practitioner Type: Progress Notes Filed: 11/05/2023 10:21 Note Text: error [facility] 11-05-2023 History of Present illness Narrative error Yazmin is a 47 year old who presents for an annual gynecologic exam without complaints. Menses: cycles every 28 days and 4 days of flow. Contraception: none HPV vaccine: No Last Pap: 05/14/2019 normal HPV: 05/12/2019 negative History of abnormal pap: No Last mammogram: 2022 normal Sexually active: Yes Hot flashes: Yes Night sweats: No OB History T3 L3 SAB0 IAB0 Ectopic0 Multiple0 Live Births3 Compensation Consultant History LMP: 11/05/2023 (Exact Date), Having periods Age at Menarche: Age at First : Age at Menopause: Compensation Consultant History Comments: Sexual Activity: Not Currently; No partner data on record Contraception: No contraception data on record PAST MEDICAL HISTORY Diagnosis Date Depression Generalized anxiety disorder Gestational diabetes 04/15/2015 Gestational diabetes 04/15/2015 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 Diabetes Maternal Grandmother Hypertension Maternal Grandfather Breast Cancer Paternal Grandmother Diabetes Paternal Grandmother Alcohol/Drug Paternal Grandmother ALCOHOLISM Breast Cancer Paternal Aunt Breast Cancer Maternal Aunt SOCIAL HISTORY Social History Tobacco Use Smoking status: Former Passive exposure: Never Smokeless tobacco: Never Tobacco comments: Socially smoked in the past Vaping Use Vaping Use: Never used Substance Use Topics Alcohol use: Yes Comment: occasionally; not while Drug use: No REVIEW OF SYSTEMS Abdomen: No abdominal pain, nausea, vomiting, diarrhea, or constipation. No bloating, early satiety, indigestion, or increased flatulence. Bladder: No dysuria, gross hematuria, urinary frequency, urinary urgency, or incontinence. Breast: No breast lumps, nipple d/c, overlying skin changes, redness or skin retraction. Allergies and current medication updated:Yes EXAM: BP 120/72 Ht 5' 6 (1.68m) Wt 236 lb (107.0kg) LMP 11/05/2023 BMI 38.11 kg/(m^2). GENERAL: pleasant, female in no apparent distress HEENT: Normocephalic, atraumatic, mucus membranes moist, and no lesions NECK: Supple, full range of motion, no adenopathy, and thyroid normal DERMATOLOGY: Normal, without lesions, non-icteric, and non-hirsute BREAST: soft, non-tender, symmetric, no dominant mass, normal nipple-areolar complex, no lymphadenopathy, and no nipple discharge CHEST: Normal inspiratory effort ABDOMEN: soft, non-tender, and no masses PELVIC: external genitalia normal, normal Bartholin's glands, urethra, [place]'s glands, no vulvar lesions, no cervical lesions, physiologic discharge present, normal appearing perineal body and perianal region BIMANUAL: uterus normal size, shape and consistency, no adnexal masses, and non-tender RECTOVAGINAL: deferred. NEURO: alert and oriented x3,exam grossly non-focal EXTREMITIES: normal ASSESSMENT/PLAN: 1. Encounter for gynecological examination (general) (routine) without abnormal findings - ICD9: V72.31, ICD10: Z01.419 (primary diagnosis) - Completed pelvic and breast exam - Encouraged monthly BSE - Follow up for annual exam in one year. - PAP TEST 2. Screening for cervical cancer - ICD9: V76.2, ICD10: Z12.4 - PAP TEST 3. Encounter for screening for human papillomavirus (HPV) - ICD9: V73.81, ICD10: Z11.51 - PAP TEST 4. Encounter for screening mammogram for breast cancer - ICD9: V76.12, ICD10: Z12.31 - DINORAH SCREENING 5. Special screening for malignant neoplasms, colon - ICD9: V76.51, ICD10: Z12.11 - COLONOSCOPY SCREENING 6. Perimenopausal symptoms - ICD9: 627.2, ICD10: N95.1 - TSH BLD - FSH BLD - ESTRADIOL-17B BLD 7. Screening for STDs (sexually transmitted diseases) - ICD9: V74.5, ICD10: Z11.3 - GONORRHEA/CHLAMYDIA NAAT 8. Encounter for insertion of intrauterine contraceptive device (IUD) - ICD9: V25.11, ICD10: Z30.430 - INSERT INTRAUTERINE DEVICE Will notify patient of test results. Jnana Delgado, KULDEEP.[facility] OPEN ACCESS QUESTIONNAIRE 1. Are you currently having any new or unusual stomach/gastrointestinal issues at this time such as constipation, diarrhea, abdominal pain, rectal bleeding etc?No 2. Do you have any difficulty swallowing? No 3. Do you have any implanted devices such as a defibrillator, pacemaker, cardiac stents or deep brain stimulator? No 4. Do you take any Blood thinners such as Coumadin, Plavix, Xarelto, Eliquis, Brilinta or any other blood thinner? No 5. Do you have any new or past cardiac (heart) or pulmonary (lung) issues? No 6. Do you currently use any oxygen? No 7. Have you been hospitalized in the past 6 weeks? No 8. Have you had difficulty with anesthesia previously re: Difficult intubation? No Other difficulty or allergic reaction to anesthesia other than post op N/V? No 9. Are you on dialysis? No 10. Do you have any bleeding disorders such as hemophilia or Factor 5? No 11. Are you an Insulin Dependent Diabetic? No IF ANY OF THE TOP ELEVEN QUESTIONS ARE ANSWERED YES PLEASE SCHEDULE THE PATIENT FOR A CONSULT. N/A 12. Is the patient's BMI 40 or greater? No:Body mass index is 38.09 kg/m .. 13. Do you take any narcotics or anti-Anxiety medications? No 14. Do you use any illegal or recreational drugs including marijuana? No 15. Any alcohol use: YES: What type of alcohol, how much and how often do you drink? : 2-3 beers per week 16. Have you been diagnosed with chronic liver disease such as hepatitis or cirrhosis? No 17. Do you have a seizure disorder? No 18. Do you have ulcerative colitis or Crohn's disease? No 19. Are you or could you be ? No 20. Any other important health information we should be made aware of prior to your colonoscopy? No To be completed by LIP: Did patient have MAC anesthesia with a previous endoscopy procedure? No Patient appropriate for Open Access Colonoscopy: Yes: appropriate for Open Access Procedure Checklist: Prior to closing the encounter: Complete questionnaire: Yes Confirm Prep order has been Ordered/Pended: Yes. Patient's procedure could be delayed if not given the script for the prep. Please ensure the prep is escripted to pharmacy or printed. Instructions for the prep will print upon filing or pending this smartset. Please send all open access questionnaires to [facility] Pool #[id number] error documented in this encounter [facility] 11-05-2023 Note HNO ID: [id number] Author: JANNA DELGADO APRN.CLINICAL NURSING INSTRUCTOR Service: ? Author Type: Nurse Practitioner Type: Progress Notes Filed: 11/05/2023 10:21 Note Text: Yazmin is a 47 year old who presents for an annual gynecologic exam without complaints. Menses: cycles every 28 days and 4 days of flow. Contraception: none HPV vaccine: No Last Pap: 05/14/2019 normal HPV: 05/12/2019 negative History of abnormal pap: No Last mammogram: 2022 normal Sexually active: Yes Hot flashes: Yes Night sweats: No OB History T3 L3 SAB0 IAB0 Ectopic0 Multiple0 Live Births3 Compensation Consultant History LMP: 11/05/2023 (Exact Date), Having periods Age at Menarche: Age at First : Age at Menopause: Compensation Consultant History Comments: Sexual Activity: Not Currently; No partner data on record Contraception: No contraception data on record PAST MEDICAL HISTORY Diagnosis Date Depression Generalized anxiety disorder Gestational diabetes 04/15/2015 Gestational diabetes 04/15/2015 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 Diabetes Maternal Grandmother Hypertension Maternal Grandfather Breast Cancer Paternal Grandmother Diabetes Paternal Grandmother Alcohol/Drug Paternal Grandmother ALCOHOLISM Breast Cancer Paternal Aunt Breast Cancer Maternal Aunt SOCIAL HISTORY Social History Tobacco Use Smoking status: Former Passive exposure: Never Smokeless tobacco: Never Tobacco comments: Socially smoked in the past Vaping Use Vaping Use: Never used Substance Use Topics Alcohol use: Yes Comment: occasionally; not while Drug use: No REVIEW OF SYSTEMS Abdomen: No abdominal pain, nausea, vomiting, diarrhea, or constipation. No bloating, early satiety, indigestion, or increased flatulence. Bladder: No dysuria, gross hematuria, urinary frequency, urinary urgency, or incontinence. Breast: No breast lumps, nipple d/c, overlying skin changes, redness or skin retraction. Allergies and current medication updated:Yes EXAM: BP 120/72 Ht 5' 6 (1.68m) Wt 236 lb (107.0kg) LMP 11/05/2023 BMI 38.11 kg/(m2). GENERAL: pleasant, female in no apparent distress HEENT: Normocephalic, atraumatic, mucus membranes moist, and no lesions NECK: Supple, full range of motion, no adenopathy, and thyroid normal DERMATOLOGY: Normal, without lesions, non-icteric, and non-hirsute BREAST: soft, non-tender, symmetric, no dominant mass, normal nipple-areolar complex, no lymphadenopathy, and no nipple discharge CHEST: Normal inspiratory effort ABDOMEN: soft, non-tender, and no masses PELVIC: external genitalia normal, normal Bartholin's glands, urethra, [place]'s glands, no vulvar lesions, no cervical lesions, physiologic discharge present, normal appearing perineal body and perianal region BIMANUAL: uterus normal size, shape and consistency, no adnexal masses, and non-tender RECTOVAGINAL: deferred. NEURO: alert and oriented x3,exam grossly non-focal EXTREMITIES: normal ASSESSMENT/PLAN: 1. Encounter for gynecological examination (general) (routine) without abnormal findings - ICD9: V72.31, ICD10: Z01.419 (primary diagnosis) - Completed pelvic and breast exam - Encouraged monthly BSE - Follow up for annual exam in one year. - PAP TEST 2. Screening for cervical cancer - ICD9: V76.2, ICD10: Z12.4 - PAP TEST 3. Encounter for screening for human papillomavirus (HPV) - ICD9: V73.81, ICD10: Z11.51 - PAP TEST 4. Encounter for screening mammogram for breast cancer - ICD9: V76.12, ICD10: Z12.31 - DINORAH SCREENING 5. Special screening for malignant neoplasms, colon - ICD9: V76.51, ICD10: Z12.11 - COLONOSCOPY SCREENING 6. Perimenopausal symptoms - ICD9: 627.2, ICD10: N95.1 - TSH BLD - FSH BLD - ESTRADIOL-17B BLD 7. Screening for STDs (sexually transmitted diseases) - ICD9: V74.5, ICD10: Z11.3 - GONORRHEA/CHLAMYDIA NAAT 8. Encounter for insertion of intrauterine contraceptive device (IUD) - ICD9: V25.11, ICD10: Z30.430 - INSERT INTRAUTERINE DEVICE Will notify patient of test results. Janna Delgado APRN.[facility] OPEN ACCESS QUESTIONNAIRE 1. Are you currently having any new or unusual stomach/gastrointestinal issues at this time such as constipation, diarrhea, abdominal pain, rectal bleeding etc?No 2. Do you have any difficulty swallowing? No 3. Do you have any implanted devices such as a defibrillator, pacemaker, cardiac stents or deep brain stimulator? No 4. Do you take any Blood thinners such as Coumadin, Plavix, Xarelto, Eliquis, Brilinta or any other blood thinner? No 5. Do you have any new or past cardiac (heart) or pulmonary (lung) issues? No 6. Do you currently use any oxygen? No 7. Have you been hospitalized in the past 6 weeks? No 8. Have you had difficulty with anest (more content not included)... [facility] 11-05-2023 Note HNO ID: [id number] Author: JANNA DELGADO APRN.CLINICAL NURSING INSTRUCTOR Service: ? Author Type: Nurse Practitioner Type: Progress Notes Filed: 11/05/2023 10:21 Note Text: error [facility] 10-31-2022 Miscellaneous Notes November 01, 2022 PID: [id number] Yazmin KincaidIvelisse Welch [address] [place] [address] Dear Ms. Welch, We are pleased to inform you that the results of your recent breast imaging exam on 10/30/2022 are normal. Early detection of cancer is very important. We also understand recommendations regarding breast cancer screening are controversial. Please discuss with your primary care provider which strategy is best for you and whether a mammogram is right for you. Your imaging studies and report will be kept on file at [facility] as part of your permanent medical record and are available for your continuing care. Thank you for allowing us to help in meeting your health care needs. Sincerely, Dr. Alberts Interpreting Radiologist [facility] (Normal over 40) documented in this encounter [facility] 10-30-2022 History of Present illness Narrative Yazmin is a 46 year old who presents for an annual gynecologic exam with complaints, menopausal symptoms. Menses: cycles every 28 days and 4 days of flow. Contraception: none HPV vaccine: No Last Pap: 05/14/2019 normal HPV: 05/12/2019 negative History of abnormal pap: No Last mammogram: 2022 pending Sexually active: Yes Patient concerns for STD exposure: No. Pain with intercourse: No Postcoital bleeding: No OB History T3 L3 SAB0 IAB0 Ectopic0 Multiple0 Live Births3 Compensation Consultant History LMP: 10/24/2022 (Exact Date), IUD Age at Menarche: Age at First : Age at Menopause: Compensation Consultant History Comments: Sexual Activity: Not Currently; No partner data on record Contraception: I.U.D. 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 Diabetes Maternal Grandmother Hypertension Maternal Grandfather Breast Cancer Paternal Grandmother Diabetes Paternal Grandmother Alcohol/Drug Paternal Grandmother ALCOHOLISM Breast Cancer Paternal Aunt Breast Cancer Maternal Aunt SOCIAL HISTORY Social History Tobacco Use Smoking status: Former Smokeless tobacco: Never Tobacco comments: Socially smoked in the past Vaping Use Vaping Use: Never used Substance Use Topics Alcohol use: Yes Comment: occasionally; not while Drug use: No REVIEW OF SYSTEMS Abdomen: No abdominal pain, nausea, vomiting, diarrhea, or constipation. No bloating, early satiety, indigestion, or increased flatulence. Bladder: No dysuria, gross hematuria, urinary frequency, urinary urgency, or incontinence. Breast: No breast lumps, nipple d/c, overlying skin changes, redness or skin retraction. Allergies and current medication updated:Yes EXAM: Ht 5' 6 (1.68m) Wt 244 lb (110.7kg) LMP 10/24/2022 BMI 39.40 kg/(m^2). GENERAL: pleasant, female in no apparent distress HEENT: Normocephalic, atraumatic, and no lesions NECK: Supple, full range of motion, no adenopathy, and thyroid normal DERMATOLOGY: Normal, without lesions, non-icteric, and non-hirsute BREAST: soft, non-tender, symmetric, no dominant mass, normal nipple-areolar complex, no lymphadenopathy, and no nipple discharge CHEST: Normal inspiratory effort ABDOMEN: soft, non-tender, and no masses PELVIC: external genitalia normal, normal Bartholin's glands, urethra, [place]'s glands, no vulvar lesions, no cervical lesions, physiologic discharge present, normal appearing perineal body and perianal region BIMANUAL: uterus normal size, shape and consistency, no adnexal masses, and non-tender RECTOVAGINAL: deferred. NEURO: alert and oriented x3,exam grossly non-focal EXTREMITIES: normal ASSESSMENT/PLAN: 1) Health maintenance: Pap/HPV up to date. Mammogram up to date . Nutrition, exercise and routine health maintenance exams reviewed. 2) Contraception: combined hormonal contraceptives. Contraceptive options reviewed and information provided.- Pt just restart the OCP previous ordered, she will see how that manages the perimenopause symptoms. 3) STD screening: Declined STD check. 4) Follow up one year or sooner as needed Janna Delgado APRN.LILIANA documented in this encounter [facility] 10-30-2022 History of Present illness Narrative Radiology Service Progress Note PATIENT NAME: Yazmin Welch DATE OF SERVICE: October 30, 2022 TIME: 1:05 PM PATIENT IDENTITY VERIFICATION COMPLETED USING TWO (2) IDENTIFIERS: Name and Date of confirmed by patient verbally. FALL SCREENING: Has the patient had 2 falls in the last year or 1 fall with injury or currently using an Ambulatory Assistive Device (Walker, Cane, Wheelchair, Crutches, etc.)? No PATIENT GENDER DATA: Female. status: : No status: NO. PATIENT RELEVANT IMPLANT DATA REVIEWED: Not Applicable RADIOLOGY DEPARTMENT: Mammography PERIPHERAL IV DATA: Not applicable SIGNED BY: Shayne Burnett October 30, 2022 1:05 PM documented in this encounter [facility] 08-02-2022 Miscellaneous Notes Patient's last yearly exam was 07/21/21 documented in this encounter [facility] 04-15-2015 History of Past i llness Narrative Problem Noted Date Resolved Date Gestational diabetes 04/15/2015 07/27/2015 Overview: 04/28/15 - patient declines diabetic teaching, discussed it's importance, checking BS & reports normal FBS, discussed diet, exercise & regular BS checking - KJ Supervision of other normal 01/18/2015 07/27/2015 Overview: January 18, 2015 47 XX on NIPT. Declines quad screen, plans US only. Sarah Martinez MD Sterilization 01/18/2015 07/27/2015 Overview: January 18, 2015 Sterilization request. Desires tubal at time of delivery if possible, after if not. Essure info given. Sarah Martinez MD Advanced maternal age (AMA) in 015 07/27/2015 IUD (intrauterine device) in place 09/16/2012 09/23/2013 Post - coital bleeding 09/16/2012 4 documented as of this encounter (statuses as of 08/02/2022) [facility] History of Past illness Narrative* Problem Noted Date Resolved Date Gestational diabetes 04/15/2015 07/27/2015 Overview: 04/28/15 - patient declines diabetic teaching, discussed it's importance, checking BS & reports normal FBS, discussed diet, exercise & regular BS checking - KJ Supervision of other normal 01/18/2015 07/27/2015 Overview: January 18, 2015 47 XX on NIPT. Declines quad screen, plans US only. Sarah Martinez MD Sterilization 01/18/2015 07/27/2015 Overview: January 18, 2015 Sterilization request. Desires tubal at time of delivery if possible, after if not. Essure info given. Sarah Martinez MD Advanced maternal age (AMA) in 015 07/27/2015 IUD (intrauterine device) in place 09/16/2012 09/23/2013 Post - coital bleeding 09/16/2012 4 documented as of this encounter (statuses as of 10/30/2022) [facility] History of Past illness Narrative* Problem Noted Date Resolved Date Gestational diabetes 04/15/2015 07/27/2015 Overview: 04/28/15 - patient declines diabetic teaching, discussed it's importance, checking BS & reports normal FBS, discussed diet, exercise & regular BS checking - KJ Supervision of other normal 01/18/2015 07/27/2015 Overview: January 18, 2015 47 XX on NIPT. Declines quad screen, plans US only. Sarah Martinez MD Sterilization 01/18/2015 07/27/2015 Overview: January 18, 2015 Sterilization request. Desires tubal at time of delivery if possible, after if not. Essure info given. Sarah Martinez MD Advanced maternal age (AMA) in 015 07/27/2015 IUD (intrauterine device) in place 09/16/2012 09/23/2013 Post - coital bleeding 09/16/2012 4 documented as of this encounter (statuses as of 11/02/2022) [facility] History of Past illness Narrative* Problem Noted Date Diagnosed Date Resolved Date Gestational diabetes 04/15/2015 015 Overview: 04/28/15 - patient declines diabetic teaching, discussed it's importance, checking BS & reports normal FBS, discussed diet, exercise & regular BS checking - KJ Supervision of other normal 01/18/2015 07/27/2015 Overview: January 18, 2015 47 XX on NIPT. Declines quad screen, plans US only. Sarah Martinez MD Sterilization 01/18/2015 07/27/2015 Overview: January 18, 2015 Sterilization request. Desires tubal at time of delivery if possible, after if not. Essure info given. Sarah Martinez MD Advanced maternal age (AMA) in 12/15/2014 07/27/2015 IUD (intrauterine device) in place 09/16/2012 09/23/2013 Post - coital bleeding 09/16/201209/23 documented as of this encounter (statuses as of 04/11/2023) [facility] History of Past illness Narrative* Problem Noted Date Diagnosed Date Resolved Date Gestational diabetes 04/15/2015 015 Overview: 04/28/15 - patient declines diabetic teaching, discussed it's importance, checking BS & reports normal FBS, discussed diet, exercise & regular BS checking - KJ Supervision of other normal 01/18/2015 07/27/2015 Overview: January 18, 2015 47 XX on NIPT. Declines quad screen, plans US only. Sarah Martinez MD Sterilization 01/18/2015 07/27/2015 Overview: January 18, 2015 Sterilization request. Desires tubal at time of delivery if possible, after if not. Essure info given. Sarah Martinez MD Advanced maternal age (AMA) in 12/15/2014 07/27/2015 IUD (intrauterine device) in place 09/16/2012 09/23/2013 Post - coital bleeding 09/16/201209/23 documented as of this encounter (statuses as of 06/24/2023) [facility] History of Past illness Narrative* Problem Noted Date Diagnosed Date Resolved Date Gestational diabetes 04/15/2015 015 Overview: 04/28/15 - patient declines diabetic teaching, discussed it's importance, checking BS & reports normal FBS, discussed diet, exercise & regular BS checking - KJ Supervision of other normal 01/18/2015 07/27/2015 Overview: January 18, 2015 47 XX on NIPT. Declines quad screen, plans US only. Sarah Martinez MD Sterilization 01/18/2015 07/27/2015 Overview: January 18, 2015 Sterilization request. Desires tubal at time of delivery if possible, after if not. Essure info given. Sarah Martinez MD Advanced maternal age (AMA) in 12/15/2014 07/27/2015 IUD (intrauterine device) in place 09/16/2012 09/23/2013 Post - coital bleeding 09/16/201209/23 documented as of this encounter (statuses as of 11/05/2023) [facility] History of Past illness Narrative* Problem Noted Date Diagnosed Date Resolved Date Gestational diabetes 04/15/2015 015 Overview: 04/28/15 - patient declines diabetic teaching, discussed it's importance, checking BS & reports normal FBS, discussed diet, exercise & regular BS checking - KJ Supervision of other normal 01/18/2015 07/27/2015 Overview: January 18, 2015 47 XX on NIPT. Declines quad screen, plans US only. Sarah Martinez MD Sterilization 01/18/2015 07/27/2015 Overview: January 18, 2015 Sterilization request. Desires tubal at time of delivery if possible, after if not. Essure info given. Sarah Martinez MD Advanced maternal age (AMA) in 12/15/2014 07/27/2015 IUD (intrauterine device) in place 09/16/2012 09/23/2013 Post - coital bleeding 09/16/201209/23 documented as of this encounter (statuses as of 11/10/2023) [facility] History of Past illness Narrative* Problem Noted Date Diagnosed Date Resolved Date Gestational diabetes 04/15/2015 015 Overview: 04/28/15 - patient declines diabetic teaching, discussed it's importance, checking BS & reports normal FBS, discussed diet, exercise & regular BS checking - KJ Supervision of other normal 01/18/2015 07/27/2015 Overview: January 18, 2015 47 XX on NIPT. Declines quad screen, plans US only. Sarah Martinez MD Sterilization 01/18/2015 07/27/2015 Overview: January 18, 2015 Sterilization request. Desires tubal at time of delivery if possible, after if not. Essure info given. Sarah Martinez MD Advanced maternal age (AMA) in 12/15/2014 07/27/2015 IUD (intrauterine device) in place 09/16/2012 09/23/2013 Post - coital bleeding 09/16/201209/23 documented as of this encounter (statuses as of 11/13/2023) [facility] History of Past illness Narrative* Problem Noted Date Diagnosed Date Resolved Date Gestational diabetes 04/15/2015 015 Overview: 04/28/15 - patient declines diabetic teaching, discussed it's importance, checking BS & reports normal FBS, discussed diet, exercise & regular BS checking - KJ Supervision of other normal 01/18/2015 07/27/2015 Overview: January 18, 2015 47 XX on NIPT. Declines quad screen, plans US only. Sarah Martinez MD Advanced maternal age (AMA) in 12/15/2014 07/27/2015 IUD (intrauterine device) in place 09/16/2012 09/23/2013 Post - coital bleeding 09/16/201209/23 documented as of this encounter (statuses as of 11/23/2023) [facility] History of Past illness Narrative* Problem Noted Date Diagnosed Date Resolved Date Gestational diabetes 04/15/2015 015 Overview: 04/28/15 - patient declines diabetic teaching, discussed it's importance, checking BS & reports normal FBS, discussed diet, exercise & regular BS checking - KJ Supervision of other normal 01/18/2015 07/27/2015 Overview: January 18, 2015 47 XX on NIPT. Declines quad screen, plans US only. Sarah Martinez MD Advanced maternal age (AMA) in 12/15/2014 07/27/2015 IUD (intrauterine device) in place 09/16/2012 09/23/2013 Post - coital bleeding 09/16/201209/23 documented as of this encounter (statuses as of 12/06/2023) [facility] Author Aviansh Corona [facility] Note Date/Time January 13, 2025 1:22p m [facility] Medical Records Department [address] [place] [address] Emergency Department Summary 01/13/25 MR#: [id number] Acct: [id number] Name: YAZMIN WELCH Rep #:[id number] : 1975 49 From: Avinash Corona MD PCP: Marlin Sam PA-C Status:REG E R Location: ED HPI History of Present Illness Chief Complaint: Palpitations Informant: patient Narrative Narrative: 49-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 She states she had her arm bent but then when she straightened it out it did get better. She states my anxiety got the best of me so I wantedto make sure I was not having a heart attack. She denies having chest comfort or dyspnea. She states her heart started racing but she feels like that was heranxiety and started after that hand tingling, that is not there anymore. She states the tingling went away and then came back, it is there mildly right now. Her blood pressure was 166 when her instructor checked at causing her concern. [facility] Medical History no medical history Home Medications ?Medication ?Instructions ?Recorded ?Last Taken ?Type vits,calcium no.78-iron 1 tab PO DAILY 06/20/15 22:00 History fumarate-folic acid 29 mg-1 mg tablet (Prenatabs FA) ibuprofen 600 mg tablet 600 mg PO Q6H PRN PRN Pain # #60 06/23/15 Unknown Rx methylprednisolone 4 mg tablets in See Rx Instructions PO PER PKG DIR 03/11/24 Unknown Rx a dose pack (Medrol (Owen)) #21 tabs fluconazole 150 mg tablet 150 mg PO Q3D 2 doses #2 tab s 04/18/24 Unknown Rx Allergy/AdvReac Type Severity Reaction Status Date / Time No Known Allergies Allergy Verified 01/13/25 11:38 Surgical History no surgical history Social History Smoking Status: Never smoker ROS ROS ED Constitutional Constitutional ED: Denies chills or fever(s) Eyes Eyes: Denies change in vision or diplopia ENT ENT ED: Denies rhinorrhea or sore throat Cardiovascular Cardiovascular: Denies chest pain or palpitations Respiratory/Chest Respiratory/Chest: Denies cough or dyspnea Gastrointestinal Gastrointestinal: Denies abdominal pain, diarrhea, nausea or vomiting Genitourinary Genitourinary ED: Denies dysuria or hematuria Musculoskeletal Musculoskeletal: Denies back pain or neck pain Integumentary Denies abscess or rash Neurologic Neurologic: Reports paresthesias LUE; Denies headache(s) or weakness Psychiatric Psychiatric: Denies suicidal thoughts EXAM Physical Exam Const Vital Signs: 01/13/25 11:38 01/13/25 11:42 01/13/25 11:54 Temperature 98.0 F Temperature Source Oral Pulse Rate 110 H Respiratory Rate 18 Respiratory Effort Normal Blood Pressure 142/72 H Blood Pressure Mean 95 Pulse Ox 95 Oxygen Delivery Method Room Air Room Air Positive well nourished and well developed General Appearance ED: well developed and NAD HEENT Reports moist mucous membranes normocephalic and atraumatic Eyes PERRL and EOMs intact bilaterally Neck full ROM and supple Resp normal respiratory effort and clear to auscultation bilaterally Cardio regular rate, regular rhythm and no murmurs GI non-tender and non-distended Auscultation: normoactive bowel sounds Palpation: soft Back/Spine no CVA tenderness General Back: other FROM Extremity normal to inspection General Extremety ED: Negative for edema, pulses abnormal or tenderness General Extremity: Negative for edema or pulses abnormal Neuro oriented x3, CN's II-XII intact bilaterally and no sensory deficits noted Sensorium / Orientation: awake and alert Motor Exam: strength 5/5 throughout Skin no rashes or lesions noted and no wounds Heart Score History: Slightly/Non-Suspicious ECG: Normal Age: >45 - <65 years Risk Factors: No Risk Factors Troponin: </= Normal Limit Score: 1 MDM MDM MDM Narrative Medical decision making narrative: Patient EKG is normal. Given that and her blood pressure being 127/73 right now, I think this is very unlikely to be acute cardiac ischemia. Therefore while testing her for that, also giving her some Mylanta to see if that makes a tingling better, this as esophageal etiologies can also cause the symptoms. I reexamination, her labs are normal troponin is less than 6 with a normal EKG jasmyn low risk history, I do not think she needs to have another repeat troponin since she has been having the tingling for the most part of the last 6 or 7 hours. Chest x-ray 2 views of interpretation are normal, radiology was in agreement. Patient is reassured, discharged home since her blood pressures in the 120s here on exam, this suggested her blood pressure is really been fluctuating from normal to high so I think she should follow-up with primary care before being put on an antihypertensive. Lab Data Attestation: I reviewed the patient's lab results. Labs: Laboratory Results - last 24 hr 01/13/25 11:50 WBC 8.6 RBC 4.39 Hgb 13.4 Hct 38.7 MCV 88.2 MCH 30.5 MCHC 34.6 RDW Std Deviation 42.0 RDW Coeff of Venancio 13.0 Plt Count 268 MPV 10.2 Immature Gran % (Auto) 0.500 Neut % (Auto) 71.1 H Lymph % (Auto) 19.9 [place] % (Auto) 7.0 Eos % (Auto) 0.9 Baso % (Auto) 0.6 Absolute Neuts (auto) 6.1 Absolute Lymphs (auto) 1.72 Nucleated RBC % 0 Sodium 138 Potassium 3.4 Chloride 103 Carbon Dioxide 23.7 Anion Gap 11 BUN 12 Creatinine 0.87 Estim Creat Clear Calc 101.10 Est GFR (MDRD) Non-Af 82 BUN/Creatinine Ratio 13.6 Glucose 135 H Calcium 9.4 Troponin T High Sens < 6 Radiography Diagnostic Testing: Clinical Impression(s) from Imaging Studies Chest X-Ray 01/13/25 12:25 IMPRESSION: NO ACUTE FINDINGS. Reading Location: [place] [address] Rhythm Strip Rhythm Strip: Sinus Tach Rate: 105 Ectopy: None EKG Initial EKG: Attestation: I personally reviewed and interpreted this EKG as follows: Interpretation: Sinus Rhythm and No Acute Injury Pattern Comments: Nml axis & intervals; nml EKG Prior EKG tracings: not available for review Prior: No Prior Discharge Plan Triage Chief Complaint: Palpitations ED Provider: Avinash Corona Dx/Rx/DC Orders Clinical Impression: Paresthesia of left arm, Single episode of hypertension Instructions: ED Hypertension, To Be Confirmed, ED Paraesthesias Prescriptions: No Action methylprednisolone [Medrol (Owen)] 4 mg tablets,dose pack See Rx Instructions PO PER PKG DIR Qty: 21 0RF Rx Instructions: PO PER PKG DIR fluconazole 150 mg tablet 150 mg PO Q3D 0 Days Qty: 2 0RF Rx Instructions: may repeat second dose 72 hrs after first dose if symptoms persist vit,[id number] [Prenatabs FA] 1 TABLET tablet 1 tab PO DAILY ibuprofen 600 MG tablet 600 mg PO Q6H PRN PRN (Reason: Pain) Qty: 60 1RF Primary Care Provider: Marlin Sam Referrals: Karla Bhatti MD [Med Staff - [facility] Consultant] - (Call for an appointment) Print Language: Afghan Disposition Disposition: Home, Self Care What to do if you have Problems For any increased pain, shortness of breath, bleeding, nausea or vomiting, chestpain, or any unexpected problems, contact your Primary Care Provider. Call [facility] ([phone]) or report to the closest Emergency Room. Call 911 if necessary. 01/13/25 1322 <Electronically signed by Avinash Corona MD> Cosigner Signature (if applicable): CC: BENEDICTO Sam ~ Signed [facility] Work Phone: evaluation noteNo assessment information available [facility] Work Phone: evaludiwih note* Diagnosis Encounter for gynecological examination (general) (routine) without abnormal findings- Primary Encounter for screening mammogram for breast cancer [facility] Diagnosis Encounter for screening mammogram for breast cancer [facility] Diagnosis Encounter for gynecological examination (general) (routine) without abnormal findings- Primary Screening for cervical cancer Screening for malignant neoplasm of the cervix Encounter for screening for human papillomavirus (HPV) Special screening examination for human papillomavirus (HPV) Encounter for screening mammogram for breast cancer Special screening for malignant neoplasms, colon Perimenopausal symptoms Symptomatic menopausal or female climacteric states Screening for STDs (sexually transmitted diseases) Screening examination for venereal disease Encounter for insertion of intrauterine contraceptive device (IUD) [facility] Diagnosis Encounter for screening mammogram for breast cancer documented in this encounter [facility] note* Diagnosis Encounter for screening colonoscopy- Primary Special screening for malignant neoplasms, colon Special screening for malignant neoplasms, colon documented in this encounter [facility] note* Diagnosis Infection of right earlobe- Primary documented in this encounter [facility] note* Diagnosis Elevated LDL cholesterol level- Primary Pure hypercholesterolemia Vitamin D deficiency Unspecified vitamin D deficiency Depression, unspecified depression type Generalized anxiety disorder Malaise and fatigue Other malaise and fatigue Craving for particular food History of gestational diabetes Personal history of gestational diabetes Screening cholesterol level Screening for lipoid disorders Screening for deficiency anemia Screening for other and unspecified deficiency anemia Screening for diabetes mellitus Screening for metabolic disorder Encounter for vitamin deficiency screening Screening for other and unspecified endocrine, nutritional, metabolic, and immunity disorders Class 2 severe obesity with serious comorbidity and body mass index (BMI) of 39.0 to 39.9 in adult, unspecified obesity type (HCC) documented in this encounter [facility] note* Diagnosis Depression, unspecified depression type Generalized anxiety disorder Craving for particular food Class 2 severe obesity with serious comorbidity and body mass index (BMI) of 39.0 to 39.9 in adult, unspecified obesity type (HCC) documented in this encounter [facility] for referral (narrative)* Diagnostic Procedure Only (Routine) - Pending Review Specialty Diagnoses / Procedures Referred By Akin acuna Referred To Contact [facility] Diagnoses Encounter for screening mammogram for breast cancer Procedures DINORAH SCREENING SCREENING MAMMOGRAPHY BI 2-VIEW BREAST INC Janna Quevedo APRN.CNP [address] [place] [address] [facility] [place] [address] Referral ID Status Reason Start Date Expiration Date Visits Requested Visits Authorized [id number] Pending Review Auto-Generat ed Referral 10/30/2022 11/29/2023 1 1 [facility] for referral (narrative)* Diagnostic Procedure Only (Routine) - Closed Specialty Diagnoses / Procedures Referred By Akin t Referred To Contact [facility] Diagnoses Encounter for screening mammogram for breast cancer Procedures DINORAH SCREENING SCREENING MAMMOGRAPHY BI 2-VIEW BREAST INC CAD Janna Delgado APRN.CLINICAL NURSING INSTRUCTOR [address] [place] [address] [facility] [address] [place] [address] Referral ID Status Reason Start Date Expiration Date V isits Requested Visits Authorized [id number] Closed Auto-Generate d Referral 10/17/2022 11/16/2023 1 1 [facility] for referral (narrative)* Outpatient Procedure (Routine) - Pending Review Specialty Diagnoses / Procedures Referred By Akin acuna Referred To Contact [facility] Diagnoses Encounter for insertion of intrauterine contraceptive device (IUD) Procedures INSERT INTRAUTERINE DEVICE LEVONORGESTREL IU 52MG 5 YR INSERT INTRAUTERINE DEVICE Janna Delgado APRN.CLINICAL NURSING INSTRUCTOR [address] [place] [address] [facility] [address] [place] [id number] Referral ID Status Reason Start Date Expiration Date Visits Requested Visits Authorized [id number] Pending Review Auto-Generat ed Referral 11/05/2023 11/04/2024 1 1 * Outpatient Procedure (Routine) - Authorized Specialty Diagnoses / Procedures Referred By Akin t Referred To Contact [facility] Diagnoses Special screening for malignant neoplasms, colon Procedures COLONOSCOPY SCREENING COLONOSCOPY FLX DX W/COLLJ SPEC WHEN PFRMD Janna Delgado APRN.CLINICAL NURSING INSTRUCTOR [address] [place] [address] [facility] [address] [place] [address] Referral ID Status Reason Start Date Expiration Date Visits Requested Visits Authorized [id number] Authorized Auto-Generat ed Referral 11/05/2023 11/04/2024 1 1 * Diagnostic Procedure Only (Routine) - Authorized Specialty Diagnoses / Procedures Referred By Akin t Referred To Contact [facility] Diagnoses Encounter for screening mammogram for breast cancer Procedures DINORAH SCREENING SCREENING MAMMOGRAPHY BI 2-VIEW BREAST INC CAD BristowJanna APRN.CLINICAL NURSING INSTRUCTOR [address] [place] [address] [facility] [address] [place] [address] Referral ID Status Reason Start Date Expiration Date Visits Requested Visits Authorized [id number] Authorized Auto-Generat ed Referral 11/05/2023 12/04/2024 1 1 [facility] for referral (narrative)* Diagnostic Procedure Only (Routine) - Closed Specialty Diagnoses / Procedures Referred By Akin t Referred To Contact [facility] Diagnoses Encounter for screening mammogram for breast cancer Procedures DINORAH SCREENING SCREENING MAMMOGRAPHY BI 2-VIEW BREAST INC CAD SandyJanna OLIVE PICKER.CLINICAL NURSING INSTRUCTOR [address] [place] [address] [facility] [address] [place] [address] Referral ID Status Reason Start Date Expiration Date V isits Requested Visits Authorized [id number] Closed Auto-Generate d Referral 11/05/2023 12/04/2024 1 1 [facility] for visit Narrative* Diagnostic Procedure Only (Routine) - Closed Specialty Diagnoses / Procedures Referred By Contac t Referred To Contact [facility] Diagnoses Encounter for screening mammogram for breast cancer Procedures DINORAH SCREENING SCREENING MAMMOGRAPHY BI 2-VIEW BREAST INC CAD BristowJanna, KULDEEP.CLINICAL NURSING INSTRUCTOR [address] [place] [address] [facility] [address] [place] [address] Referral ID Status Reason Start Date Expiration Date V isits Requested Visits Authorized [id number] Closed Auto-Generate d Referral 11/05/2023 12/04/2024 1 1 [facility] N[facility]* Outpatient Procedure (Routine) - Closed Specialty Diagnoses / Procedures Referred By Contac t Referred To Contact [facility] Diagnoses Special screening for malignant neoplasms, colon Procedures COLONOSCOPY SCREENING COLONOSCOPY FLX DX W/COLLJ SPEC WHEN PFRMD Bristow, Janna, OLIVE PICKER.CLINICAL NURSING INSTRUCTOR [address] [place] [address] [facility] [address] [place] [address] Referral ID Status Reason Start Date Expiration Date V isits Requested Visits Authorized [id number] Closed Auto-Generate d Referral 11/05/2023 11/04/2024 1 1 [facility] Summary Purpose Family History No Family History Records FoundNo Family History Records FoundNo Family History Records FoundNo Family History Records Found Advance Directives No Advanced Directives Records Found Advance Directive Response Recorded Date/ Time Do you have a Healthcare Power of Wrapper Off? No January 13, 2025 11:42am Reason for Referral Specialty Diagnoses / Procedures Referred By Contac t Referred To Contact Colon and Rectal Surgery Diagnoses Encounter for screening colonoscopy Procedures CONSULT TO COLO-RECTAL SURGERY OFFICE/OUTPATIENT [facility] 60 MINUTES Reed Lopez MD [address] [place] [address] Eddie Mccollum MD [address] [place] [address] Referral ID Status Reason Start Date Expiration Date Visits Requested Visits Authorized [id number] Authorized PCP Requested Referral 11/22/2023 11/21/2024 1 1 Specialty Diagnoses / Procedures Referred By Contac t Referred To Contact [facility] Diagnoses Special screening for malignant neoplasms, colon Procedures COLONOSCOPY SCREENING COLONOSCOPY FLX DX W/COLLJ SPEC WHEN PFRMD Bristow, Janna, OLIVE PICKER.CLINICAL NURSING INSTRUCTOR [address] [place] [address] [facility] [address] [place] [address] Referral ID Status Reason Start Date Expiration Date V isits Requested Visits Authorized [id number] Closed Auto-Generate d Referral 11/05/2023 11/04/2024 1 1 Specialty Diagnoses / Procedures Referred By Contac t Referred To Contact Nutrition Diagnoses Elevated LDL cholesterol level Vitamin D deficiency Craving for particular food History of gestational diabetes Class 2 severe obesity with serious comorbidity and body mass index (BMI) of 39.0 to 39.9 in adult, unspecified obesity type (HCC) Procedures CONSULT TO NUTRITION THERAPY MEDICAL NUTRITION ASSMT&IVNTJ INDIV EACH 15 FL Karla Grant, OLIVE PICKER.CLINICAL NURSING INSTRUCTOR [address] [place] [address] Referral ID Status Reason Start Date Expiration Date Visits Requested Visits Authorized [id number] Authorized PCP Requested Referral 01/23/2024 01/22/2025 1 4 Chief Complaint and Reason for Visit Chief Complaint Admit Date palptations January 13, 2025 11:36 am Additional Source Comments INFORMATION SOURCE (unrecogn ized section and content) DATE CREATED AUTHOR 07/10/2020 [facility] DATE CREATED AUTHOR AUTHOR'S ORGANIZ ATION 04/12/2023 [facility] DATE CREATED AUTHOR AUTHOR'S ORGANIZ ATION 01/24/2024 [facility] DATE CREATED AUTHOR AUTHOR'S ORGANIZ ATION 01/21/2025 [facility] Goals (unrecognized section and content) Goals may be documented in a n alternate sectionGoals may be documented in an alternate section Source Comments (unrecognize d section and content) In the event this informatio n is protected by the Federal Confidentiality of Alcohol and Drug Abuse Patient Records regulations: The Federal rules restrict any use of the information to criminally investigate or prosecute any alcohol or drug abuse patient.[facility] the event this information is protected by the Federal Confidentiality of Alcohol and Drug Abuse Patient Records regulations: The Federal rules restrict any use of the information to criminally investigate or prosecute any alcohol or drug abuse patient.[facility] the event this information is protected by the Federal Confidentiality of Alcohol and Drug Abuse Patient Records regulations: The Federal rules restrict any use of the information to criminally investigate or prosecute any alcohol or drug abuse patient.[facility] the event this information is protected by the Federal Confidentiality of Alcohol and Drug Abuse Patient Records regulations: The Federal rules restrict any use of the information to criminally investigate or prosecute any alcohol or drug abuse patient.[facility] the event this information is protected by the Federal Confidentiality of Alcohol and Drug Abuse Patient Records regulations: The Federal rules restrict any use of the information to criminally investigate or prosecute any alcohol or drug abuse patient.[facility] Hospital[facility] the event this information is protected by the Federal Confidentiality of Alcohol and Drug Abuse Patient Records regulations: The Federal rules restrict any use of the information to criminally investigate or prosecute any alcohol or drug abuse patient.[facility] Hospital[facility] the event this information is protected by the Federal Confidentiality of Alcohol and Drug Abuse Patient Records regulations: The Federal rules restrict any use of the information to criminally investigate or prosecute any alcohol or drug abuse patient.[facility] the event this information is protected by the Federal Confidentiality of Alcohol and Drug Abuse Patient Records regulations: The Federal rules restrict any use of the information to criminally investigate or prosecute any alcohol or drug abuse patient.[facility] HospitalIn the event this information is protected by the Federal Confidentiality of Alcohol and Drug Abuse Patient Records regulations: The Federal rules restrict any use of the information to criminally investigate or prosecute any alcohol or drug abuse patient.[facility] HospitalIn the event this information is protected by the Federal Confidentiality of Alcohol and Drug Abuse Patient Records regulations: The Federal rules restrict any use of the information to criminally investigate or prosecute any alcohol or drug abuse patient.[facility] Hospital[facility] the event this information is protected by the Federal Confidentiality of Alcohol and Drug Abuse Patient Records regulations: The Federal rules restrict any use of the information to criminally investigate or prosecute any alcohol or drug abuse patient.[facility] HospitalIn the event this information is protected by the Federal Confidentiality of Alcohol and Drug Abuse Patient Records regulations: The Federal rules restrict any use of the information to criminally investigate or prosecute any alcohol or drug abuse patient.[facility] HospitalIn the event this information is protected by the Federal Confidentiality of Alcohol and Drug Abuse Patient Records regulations: The Federal rules restrict any use of the information to criminally investigate or prosecute any alcohol or drug abuse patient.[facility] HospitalIn the event this information is protected by the Federal Confidentiality of Alcohol and Drug Abuse Patient Records regulations: The Federal rules restrict any use of the information to criminally investigate or prosecute any alcohol or drug abuse patient.[facility] Reason for Visit (unrecogniz ed section and content) Reason Comments Refill Request Reason Comments Yearly Exam Specialty Diagnoses / Procedures Referred By Akin acuna Referred To Contact Gynecology / HOUSEKEEPING AND LAUNDRY TEAM LEADER Diagnoses ANNUAL Procedures EST [facility] ANNUAL PATIENT Janna Delgado APRN.CLINICAL NURSING INSTRUCTOR [address] [place] [address] Janna Delgado APRN.CLINICAL NURSING INSTRUCTOR [address] [facility] [place] [address] Referral ID Status Reason Start Date Expiration Date Visits Re quested Visits Authorized [id number] Closed 10/30/2022 08/19/2023 1 1 Specialty Diagnoses / Procedures Referred By Akin acuna Referred To Contact Radiology / [facility] Diagnoses Encounter for screening mammogram for malignant neoplasm of breast Encounter for screening mammogram for breast cancer [Z12.31] Procedures SCREENING MAMMOGRAPHY BI 2-VIEW BREAST INC CAD MAMMOGRAM SCREENING Janna Delgado APRN.CLINICAL NURSING INSTRUCTOR [address] [place] [address] Radio Mammo [facility] [address] [place] [address] Referral ID Status Reason Start Date Expiration Date Visits Re quested Visits Authorized [id number] Closed 10/30/2022 08/19/2023 1 1 Reason Comments Yearly Exam Reason Comments Patient Question Reason Comments Ear Problem right earlobe pierci ng x 2 weeks Reason Onset Date Comments Weight Management 01/23/2024 New Patient Care Teams (unrecognized sec tion and content) Key Operator Relationship Specialty Start Date End Date Karla Bhatti [address] [facility] [address] [place] [address] PCP - General 10/01/04 Key Operator Relationship Specialty Start Date End Date Karla Bhatti [address] [facility] [facility] [address] [place], [place] [id number] PCP - General 10/01/04 Key Operator Relationship Specialty Start Date End Date Karla Bhatti [address] [facility] [address] [place] [address] PCP - General 10/01/04 Key Operator Relationship Specialty Start Date End Date Karla Bhatti [address] [facility] [address] [place] [address] PCP - General 10/01/04 Key Operator Relationship Specialty Start Date End Date Karla Bhatti [address] [facility] [address] [place] [address] PCP - General 10/01/04 Key Operator Relationship Specialty Start Date End Date Karla Bhatti [address] [facility] [address] [place] [address] PCP - General 10/01/04 Key Operator Relationship Specialty Start Date End Date Karla Bhatti [address] [facility] [address] [place] [address] PCP - General 10/01/04 Key Operator Relationship Specialty Start Date End Date Karla Bhatti [address] [place] [address] PCP - General 10/01/04 Key Operator Relationship Specialty Start Date End Date Karla Bhatti [address] [place] [address] PCP - General 10/01/04 Key Operator Relationship Specialty Start Date End Date Karla Bhatti [address] [place] [address] PCP - General 10/01/04 Key Operator Relationship Specialty Start Date End Date Karla Bhatti [address] [place] [address] PCP - General 10/01/04 Key Operator Relationship Specialty Start Date End Date Marlin Sam PA-C [address] [place] [address] PCP - General Family Medicine 01/23/24 Key Operator Relationship Specialty Start Date End Date Marlin Sam PA-C [address] [place] [address] PCP - General Family Medicine 01/23/24 Team Status: Active Member Role Status Dates Marlin RUIZ PA-C Primary Care Provider Active Team Status: Inactive Member Role Status Dates Dr. Avinash Corona MD Emergency Provider Active Start: January 13, 2025 End: January 13, 2025 Marlin RUIZ PA-C Primary Care Provider Active Start: January 13, 2025 End: January 13, 2025 Inactive Administered Medications - up to 3 most recent administrations Administered Medications (un recognized section and content) Medication Order MAR Action Action Date Dose Rate Site diphenhydrAMINE 12.5-50 mg injection (BENADRYL) 12.5-50 mg, INTRAVENOUS, DIRECTED, Starting on Lizbeth 11/22/23 at 1200, Until Lizbeth 11/22/23 at 1559, DOSING DIRECTED BY PHYSICIAN FOR PROCEDURAL SEDATION ONLY, Intraprocedure Given 11/22/2023 11:38 AM EDT 50 mg fentaNYL 50 mcg/mL 25-100 mcg injection (SUBLIMAZE) 25-100 mcg, INTRAVENOUS, DIRECTED, Starting on Lizbeth 11/22/23 at 1200, Until Lizbeth 11/22/23 at 1559, DOSING DIRECTED BY PHYSICIAN FOR PROCEDURAL SEDATION ONLY, Intraprocedure Given 11/22/2023 11:45 AM EDT 50 mcg Given 11/22/2023 11:36 AM EDT 50 mcg lactated ringers iv infusion 30 mL/hr, INTRAVENOUS, CONTINUOUS, Starting on Lizbeth 11/22/23 at 1100, Until Lizbeth 11/22/23 at 1218, Preprocedure New Bag/Syringe/Bottle 11/22/2023 11:25 AM EDT 30 mL/hr 30 mL/hr midazolam (PF) 1-5 mg injection (VERSED) 1-5 mg, INTRAVENOUS, DIRECTED, Starting on Lizbeth 11/22/23 at 1200, Until Lizbeth 11/22/23 at 1559, DOSING DIRECTED BY PHYSICIAN FOR PROCEDURAL SEDATION ONLY, Intraprocedure Given 11/22/2023 11:42 AM EDT 2 mg Given 11/22/2023 11:40 AM EDT 2 mg Given 11/22/2023 11:36 AM EDT 3 mg FOR RECORDS PERTAINING TO PATIENTS WHO ARE OR HAVE BEEN ENROLLED IN A CHEMICAL DEPENDENCY/SUBSTANCEABUSE PROGRAM, SOME INFORMATION MAY BE OMITTED. This clinical summary was aggregated from multiple sources. Caution should be exercised in using it in the provision of clinical care. This summary normalizes information from multiple sources, and as a consequence, information in this document may materially change the coding, format and clinical context of patient data. In addition, data may be omitted in some cases. CLINICAL DECISIONS SHOULD BE BASED ON THE PRIMARY CLINICAL RECORDS. [facility]. provides no warranty or guarantee of the accuracy or completeness of information in this document.
[2025-03-31 06:08] LABS: QNTFERON TB Mitogen Value > 10.00 IU/mL (.); QNTFERON TB Nil Value 0.02 IU/mL (.); QNTFERON TB1+ Ag Value 0.06 IU/mL (.); QNTFERON TB2+ Ag Value 0.09 IU/mL (.); QNTIFERON TB Positive Criteria Negative (Negative)
== END | disposition home or self-care (01) ==
LOC: MFPLAB 15:14
PROVIDERS: PCP Family Medicine; Visit Provider Family Medicine
DX: Z00.00 Encounter for general adult medical examination without abnormal findings (principal)
CPT/HCPCS: 36415; 86480